=== PATIENT | female | born 1985 | race Caucasian/White ===

== ENCOUNTER 2019-06-06 12:20 | Emergency (ER) | payer OTHER, SELFPAY ==
--- NOTE | 2019-06-06 12:26 | ED.URI ---
HPI - URI/Sore Throat General Chief Complaint: Upper Respiratory Infection Stated Complaint: congestion/cough/SOB Time Seen by Provider: 06/06/19 12:26 Source: patient and RN notes reviewed Mode of arrival: ambulatory Limitations: no limitations History of Present Illness HPI Narrative: A 34 y/o female, who is a smoker and nondrinker, presents to the with multiple, worsening, URI symptoms for the past 5 days. She reports that she has been having a green productive cough, sinus congestion, rhinorrhea, wheezes, and SOB. She notes that she used her mothers nebulizer which helped to alleviated her symptoms. The pt is also here with her daughter who has also been sick, and now Flu B positive . She denies any sore throat, ear ache, fevers, and any other medical complaints at this time. MD elicited complaint: other (Multiple) Onset (ago): day(s) (5) Consistency: progressively worsening Description of mucous: green Relieving factors: vaporizer Context: sick contacts Associated symptoms: rhinorrhea, nasal congestion, cough (green productive), shortness of breath and other (wheezes) Treatments prior to arrival: other (Nebulizer) Related Data Home Medications Medication Instructions Recorded Confirmed escitalopram oxalate 20 mg PO DAILY 05/22/19 06/06/19 lisinopril 20 mg PO DAILY 05/22/19 06/06/19 albuterol sulfate [ProAir HFA] 1 inh INHALATION QID PRN 06/06/19 06/06/19 cetirizine 10 mg PO DAILY 06/06/19 06/06/19 fluticasone propionate 1 spray INTRANASAL Q12H PRN 06/06/19 06/06/19 Allergies Allergy/AdvReac Type Severity Reaction Status Date / Time No Known Allergies Allergy Verified 06/06/19 12:39 Review of Systems Review of Systems: Narrative: General/Constitutional: No weight loss,fever Eyes: N0: Redness,discharge Ears/Nose/Throat: No: Epistaxis,ear discharge, sore throat, ear ache. Reports nasal congestion and rhinorrhea. Respiratory: Denies: Hemoptysis. Reports a green productive cough, wheezes, and SOB. Gastrointestinal: No Vomiting, Bleeding-rectal Skin: No Lumps, eruption Neurologic: No Focal Weakness,Sz Hematologic: Denies: Petechiae/Purpura Psychiatric: No: Suicida ideationl All Other Systems: Reviewed and Negative [facility] Past Medical History Medical History Anxiety Depression HTN (hypertension) Hx of migraines Sleep apnea Surgical History Surgical History (Updated 06/06/19 @ 12:42 by Henry Hernandez) History of bilateral hip arthroplasty History of tonsillectomy Family History Family History Other Diabetes mellitus Family history of malignant neoplasm Hypertension Social History Social History Smoking packs per day: 0.5 Smoking cigarettes per day: 10.0 Smoking status: Current every day smoker Alcohol intake: current Exam Narrative: Exam Narrative: General Appearance: Well appearing, Well nourished EYE: PERRLA, Conjunctiva clear Ears: Auditory canal normal, TM normal Nose: Rhinorrhea, Mucousal erythema Mouth/Throat: MM moist, Uvula midline, Pharyngeal erythema Neck: Supple, No adenopathy Respiratory: No respiratory distress, Breath sounds equal, distant , scattered wheezing. Cardiovascular: RRR, No JVD Musculoskeletal: Non tender, Normal strength, decreased ROM. Skin: Warm, Dry Neurological: A&O x3, CN II-XII intact Psychiatric: Normal mood, Normal affect Course Vital Signs Vital signs: Vital Signs Temperature 97.9 F 06/06/19 12:33 Pulse Rate 93 06/06/19 12:33 Respiratory Rate 06/06/19 12:33 Blood Pressure 154/117 H 06/06/19 12:33 Pulse Oximetry 96 06/06/19 12:33 Temperature 97.9 F 06/06/19 12:33 Pulse Rate 93 06/06/19 12:33 Respiratory Rate 06/06/19 12:33 Blood Pressure 154/117 H 06/06/19 12:33 Pulse Oximetry 96 06/06/19 12:33 MDM - URI/Sore Throat Lab Data Labs: Influenza
[2019-06-06 12:33] VITALS: BP 154/117; PULSE 93; RESP 20; TEMP 36.6; O2SAT 96
== END 2019-06-06 13:26 | disposition home or self-care (01) ==
PROVIDERS: Emergency Provider Emergency Medicine
DX: J98.01 Acute bronchospasm (principal); R05 Cough; R09.81 Nasal congestion; I10 Essential (primary) hypertension; F32.9 Major depressive disorder, single episode, unspecified; F41.9 Anxiety disorder, unspecified; G47.30 Sleep apnea, unspecified
CPT/HCPCS: 87804; 99213; G0463

== ENCOUNTER 2019-07-26 06:39 | Outpatient (CLI) | payer OTHER, SELFPAY ==
--- NOTE | ~2019-07-26 | MR_ITS ---
EXAMINATION: MR ankle LT wo con DATE: 07/26/2019 07:51 INDICATION: Left ankle sprain. TECHNIQUE: Magnetic resonance imaging (MRI) of the left ankle was performed without intravenous contr ast. Sequences included sagittal PD-weighted FS FSE, sagittal PD-weighted FSE, coronal PD-weighted FS FSE, coronal PD-weighted FSE, axial PD-weighted FS FSE, and axial PD-weighted FSE. COMPARISON: Left ankle radiographs 05/22/2019 FINDINGS: Medial ankle ligaments: There are changes of sprain of superficial component of the deltoid ligament characterized by thicken ing and increased signal intensity. The deep component of the deltoid ligament is normal. Lateral ankle ligaments: There are changes of sprain of anterior talofibular ligament and calcaneofibular ligament characteriz ed by increased signal intensity. Posterior talofibular ligament is normal. There are changes of spra in of anterior tibiofibular ligament characterized by thickening and increased signal intensity. Post erior tibiofibular ligament is normal. Tendons: The medial and anterior ankle tendons are normal. The peroneal tendons and Achilles tendon are normal . Plantar fascia: Normal. There is an enthesophyte at the calcaneal attachment. Bones/other: There is mild talonavicular joint osteoarthritis. The talar dome is normal. There is severe fatty atr ophy of abductor digiti minimi muscle belly. Fluid: There is a small effusion of talonavicular joint. IMPRESSION: 1. Mild medial and lateral ankle sprains. Reviewed, dictated and finalized at location A.
== END 2019-07-26 06:40 | disposition home or self-care (01) ==
PROVIDERS: PCP Nurse Practitioner Family; Visit Provider Podiatrist Foot & Ankle Surgery
DX: S93.492A Sprain of other ligament of left ankle, initial encounter (principal)
CPT/HCPCS: 73721

== ENCOUNTER 2020-04-22 14:42 | Emergency (ER) | payer OTHER, SELFPAY ==
[2020-04-22 14:47] VITALS: BP 147/81; PULSE 98; RESP 20; TEMP 36.6; O2SAT 97
--- NOTE | 2020-04-22 15:18 | ED.DENTAL ---
HPI - Dental/Oral General Chief complaint: Dental/Oral Stated complaint: pos thrush Source: patient and RN notes reviewed Limitations: no limitations History of Present Illness HPI Narrative: The obese patient, who is a ex-smoker/current vaper and edentulous, presents with tongue discoloration. Patient states she has about 1/2-month history of dry mouth and yellow discoloration to her tongue. She was provided some nystatin, with no relief. No other jaundice, fever, swelling , eruption . Patient advised to discontinue vaping, and consider reducing Lexapro. Related Data Home Medications Medication Instructions Recorded Confirmed escitalopram oxalate 20 mg PO DAILY 05/22/19 06/06/19 lisinopril 20 mg PO DAILY 05/22/19 06/06/19 cetirizine 10 mg PO DAILY 06/06/19 06/06/19 budesonide-formoterol [Symbicort] puff INHALATION BID 04/22/20 Allergies Allergy/AdvReac Type Severity Reaction Status Date / Time No Known Allergies Allergy Verified 06/06/19 12:39 Review of Systems Review of Systems: Narrative: General/Constitutional: No weight loss,fever Eyes: N0: Redness,discharge Ears/Nose/Throat: No: Epistaxis,ear discharge Respiratory: Denies: Hemoptysis Gastrointestinal: No Vomiting, Bleeding-rectal Skin: No Lumps, eruption Neurologic: No Focal Weakness,Sz Hematologic: Denies: Petechiae/Purpura Psychiatric: No: Suicida ideationl All Other Systems: Reviewed and Negative [facility] Past Medical History Medical History (Updated 04/23/20 @ 00:00 by Zina Zaldivar) Anxiety Depression HTN (hypertension) Hx of migraines Sleep apnea Surgical History Surgical History (Updated 06/06/19 @ 12:42 by Henry Hernandez) History of bilateral hip arthroplasty History of tonsillectomy Family History Family History Other Diabetes mellitus Family history of malignant neoplasm Hypertension Social History Social History Smoking packs per day: 0.5 Smoking cigarettes per day: 10.0 Smoking status: Current every day smoker Alcohol intake: current Gender identity (if verbalized by the patient): Female Comments At time of signature, agree with nursing past medical, surgical, social and family history. There is no relevant family history pertinent to the presenting complaint Exam Narrative: Exam Narrative: General Appearance: Well nourished Obese EYE: PERRLA, EOMI, Conjunctiva clear without jaundice Ears: External ear normal, Auditory canal normal Nose: Normal nose Mouth/Throat: Edentulous, tongue yellow laterally border Neck: Supple, No adenopathy Respiratory: Airway patent, No respiratory distress, Clear to auscultation Musculoskeletal: Normal strength Skin: Warm, Dry, Normal color Neurological: A&O x3, Normal affect Course Vital Signs Vital signs: Vital Signs Temperature 97.8 F 04/22/20 14:47 Pulse Rate 98 04/22/20 14:47 Respiratory Rate 04/22/20 14:47 Blood Pressure 147/81 H 04/22/20 14:47 Pulse Oximetry 97 04/22/20 14:47 Temperature 97.8 F 04/22/20 14:47 Pulse Rate 98 04/22/20 14:47 Respiratory Rate 04/22/20 14:47 Blood Pressure 147/81 H 04/22/20 14:47 Pulse Oximetry 97 04/22/20 14:47 Discharge Plan Discharge Clinical Impression: Tongue disorder, Dry mouth, unspecified Patient Disposition: Home, Self-Care Condition: Stable Instructions: Dry Mouth (ED) Additional Instructions: Try OTC supplements like vitamin D and B complex Decrease smoking/vaping; decrease Lexapro by half Prescriptions: New fluconazole 150 mg tablet 150 mg PO WEEKLY Qty: 2 RF: 0 No Action cetirizine 10 mg Tablet 10 mg PO DAILY RF: 0 albuterol sulfate [Ventolin HFA] 90 mcg/actuation HFA aerosol inhaler 2 puff INHALATION QID PRN (Reason: shortness of breath or wheezing) Qty: 8.5 RF: 1 budesonide-formoterol [Symbicort] 160-4.5 mcg/actuation HFA aer
== END 2020-04-22 15:25 | disposition home or self-care (01) ==
PROVIDERS: Emergency Provider Emergency Medicine; PCP Nurse Practitioner Family
DX: K14.9 Disease of tongue, unspecified (principal); R68.2 Dry mouth, unspecified; F17.200 Nicotine dependence, unspecified, uncomplicated; F41.9 Anxiety disorder, unspecified; F32.9 Major depressive disorder, single episode, unspecified; I10 Essential (primary) hypertension; G47.30 Sleep apnea, unspecified
CPT/HCPCS: 99213; G0463

== ENCOUNTER 2020-08-27 15:48 | Outpatient (CLI) | payer OTHER, SELFPAY ==
--- NOTE | 2020-08-27 | ECG_ITS ---
Measurements Intervals [employer] Rate: 78 P: 42 LA: 174 QRS: 60 QRSD: 97 T: 17 QT: 379 QTc: 433 Interpretive Statements SINUS RHYTHM DELAYED PRECORDIAL R/S TRANSITION BASELINE ARTIFACT- I, II, III BORDERLINE ECG Electronically Signed On 08-27-2020 16:29:06 CDT by Marcial Guzman D.O.
--- NOTE | ~2020-08-27 | XR_ITS ---
EXAMINATION: XR chest 2V EXAM DATE: 08/27/2020 16:31 INDICATION: History of hypertension. Preoperative. TECHNIQUE: Frontal and lateral projections of the chest obtained and reviewed. There is no prior leon dy for comparison. FINDINGS: The lungs are clear. There are no pleural effusions. The cardiomediastinal silhouette is within normal limits. There is no pneumothorax suspected. The bones and soft tissues are unremarkab le. IMPRESSION: Unremarkable chest x-ray exam. Reviewed, dictated and finalized at location B.
[2020-08-27 16:44] LABS: Basophils Percent Auto 0.4 % (0.2-1.2); Eosinophils Absolute Auto 0.2 K/mm3 (0-0.3); Eosinophils Percent Auto 4.1 % (0-4.4); Hematocrit 34.5 % (37.0-47.0); Hemoglobin 11.9 g/dL (12.0-15.0); Immature Granulocyte Absolute 0.03 K/mm3 (0.00-0.031); Immature Granulocyte Percent A 0.6 % (0-0.5); Lymphocytes Absolute Auto 1.53 K/mm3 (0.9-3.2); Lymphocytes Percent Auto 28.2 % (18.3-44.2); Mean Corpuscular HGB Conc 34.5 g/dl (32-36); Mean Corpuscular Hemoglobin 29.8 pg (26-34); Mean Corpuscular Volume 86.5 fl (80-100); Mean Platelet Volume 9.3 fl (7.4-10.4); Monocytes Absolute Auto 0.5 K/mm3 (0.1-0.6); Monocytes Percent Auto 9.9 % (2.6-8.5); Neutrophils Absolute Auto 3.1 K/mm3 (1.3-6.7); Neutrophils Percent Auto 56.8 % (45.5-73.1); Platelet Count Result 223 k/mm3 (150-375); Red Blood Count 3.99 M/mm3 (4.2-5.4); Red Cell Distribution Width 13.7 % (11.5-14.5); White Blood Count 5.4 K/mm3 (4.5-10.0)
[2020-08-27 16:54] LABS: Alanine Aminotransferase 24 U/L (4-35); Albumin Level 3.9 g/dL (3.5-5.1); Alkaline Phosphatase 68 U/L (38-126); Anion Gap 4 mmol/L (8-16); Aspartate Amino Transferase 31 U/L (14-36); Bilirubin,Total 0.2 mg/dL (0.2-1.3); Blood Urea Nitrogen 16 mg/dL (7-17); Carbon Dioxide 32 mmol/L (22-30); Chloride 102 mmol/L (98-107); Estimated Glomerular Filt Rate > 60; Glucose 107 mg/dL (65-105); Potassium 3.7 mmol/L (3.4-5.0); Sodium 138 mmol/L (137-145)
== END 2020-08-27 15:49 | disposition home or self-care (01) ==
LOC: ANHLAB 15:50
PROVIDERS: PCP Nurse Practitioner Family; Visit Provider Nurse Practitioner Family
DX: Z01.818 Encounter for other preprocedural examination (principal)
CPT/HCPCS: 36415; 71046; 80053; 85025; 93005

== ENCOUNTER 2021-02-22 14:35 | Emergency (ER) | payer OTHER, SELFPAY ==
[2021-02-22 14:51] VITALS: BP 146/93; PULSE 88; RESP 18; TEMP 36.4; O2SAT 99
--- NOTE | 2021-02-22 15:14 | ED.BACK ---
HPI - Back Pain/Injury General Chief Complaint: Back Pain/Injury Stated Complaint: Back pain Time Seen by Provider: 02/22/21 15:14 Source: patient, RN notes reviewed and old records reviewed Mode of arrival: ambulatory Limitations: no limitations History of Present Illness HPI Narrative: 36-year-old female presents to the [facility] with complaints of back pain to the lower right side. No numbness or tingling in extremities. States it sometimes a shooting pain down the right leg. 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 No loss or retention of bowel or bladder. No saddle anesthesia. Walks with a normal gait. Pain is worse with changing of positions from standing to sitting and sitting to standing. Related Data Home Medications Medication Instructions Recorded Confirmed escitalopram oxalate 20 mg PO DAILY 05/22/19 02/22/21 lisinopril 20 mg PO DAILY 05/22/19 02/22/21 cetirizine 10 mg PO DAILY 06/06/19 02/22/21 budesonide-formoterol [Symbicort] 2 puff INHALATION BID 04/22/20 02/22/21 Allergies Allergy/AdvReac Type Severity Reaction Status Date / Time No Known Allergies Allergy Verified 02/22/21 15:17 Review of Systems Review of Systems: All systems reviewed & are unremarkable except as noted in HPI and below Constitutional: Constitutional: Reports no additional constitutional complaints Eyes: Eyes: Reports no additional eye complaints ENT: Reports system reviewed and no additional complaints, except as documented Cardiovascular: Cardiovascular: Reports no additional cardiovascular complaints Respiratory: Respiratory: Reports no additional respiratory complaints Gastrointestinal: Gastrointestinal: Reports no additional gastrointestinal complaints, Denies abdominal pain, Denies nausea and Denies vomiting Genitourinary: Genitourinary: Reports no additional female genitourinary complaints and Denies urinary incontinence Musculoskeletal: Musculoskeletal: Reports as per HPI and Reports back pain (Right lower) Integumentary/Breasts: Skin/Breast: Reports system reviewed and no additional complaints, except as docu Neurologic: Reports system reviewed and no additional complaints, except as documented Psychiatric: Psychiatric: Reports no additional psychiatric complaints Allergic/Immunologic: Allergic/Immunologic: Reports no additional allergic/immunologic complaints PMFSH Past Medical History Medical History (Updated 02/22/21 @ 15:22 by Shannon Garnica) Anxiety Depression HTN (hypertension) Hx of migraines Sleep apnea Surgical History Surgical History History of bilateral hip arthroplasty History of tonsillectomy Family History Family History Other Diabetes mellitus Family history of malignant neoplasm Hypertension Social History Social History Smoking packs per day: 0.5 Smoking cigarettes per day: 10.0 Smoking status: Current every day smoker Alcohol intake: current Gender identity (if verbalized by the patient): Female Comments At the time of my signature, I reviewed and agree with the nursing past medical, surgical, social, and family history. There is no relevant family history pertinent to the patient complaint. Exam Const: General: healthy appearing, no acute distress and alert Nutritional Appearance: well nourished and obese morbidly obese Orientation/consciousness: patient oriented x3 Limitations: no limitations HENMT: Head: normal to inspection Eyes: Conjunctivae: conjunctivae normal Pupils: Equal, round and reactive pupils present Neck: Neck: normal visual inspection, no lymphadenopathy and no meningeal signs Chest: Chest palpation & inspection: normal inspection of the chest Resp: Effort & Inspection: normal respiratory effort and no use of accessory muscles Auscultation: clear to
== END 2021-02-22 15:30 | disposition home or self-care (01) ==
PROVIDERS: Emergency Provider Nurse Practitioner; PCP Nurse Practitioner Family
DX: S39.012A Strain of muscle, fascia and tendon of lower back, initial encounter (principal); X50.9XXA Other and unspecified overexertion or strenuous movements or postures, initial encounter; I10 Essential (primary) hypertension; G47.30 Sleep apnea, unspecified; F41.9 Anxiety disorder, unspecified; F32.9 Major depressive disorder, single episode, unspecified
CPT/HCPCS: 99213; G0463

== ENCOUNTER 2023-05-30 11:29 | Emergency (ER) | payer OTHER, SELFPAY ==
[2023-05-30 11:49] VITALS: BP 141/81; PULSE 75; RESP 18; TEMP 36.2; O2SAT 96
--- NOTE | 2023-05-30 12:31 | ED.GENADULT ---
HPI - General Adult General Chief complaint: Urogenital-Female Stated complaint: uti symptoms Time Seen by Provider: 05/30/23 12:31 Source: patient Mode of arrival: ambulatory Limitations: no limitations History of Present Illness HPI narrative: 38-year-old female patient presents to [facility] with complaints of pain with urination that started this morning. Denies any blood to the urine that she is aware of. Denies any low back pain, fevers, body aches, chills. Denies any nausea, vomiting or diarrhea. Patient states he ate she has had some lower abdominal pain. Patient states she is sexually active but does not have any concerns for STD because she is in a monogamous relationship. Patient denies any stating that her tubes have been tied. Related Data Home Medications Medication Instructions Recorded Confirmed escitalopram oxalate 20 mg tablet 20 mg PO DAILY 05/22/19 05/30/23 lisinopril 20 mg tablet 20 mg PO DAILY 05/22/19 05/30/23 cetirizine 10 mg tablet 10 mg PO DAILY 06/06/19 05/30/23 budesonide-formoterol HFA 160 2 puff inhalation BID 04/22/20 05/30/23 mcg-4.5 mcg/actuation aerosol inhaler (Symbicort) albuterol sulfate 2.5 mg/3 mL mg 05/30/23 (0.083 %) solution for nebulization ibuprofen 800 mg tablet mg 05/30/23 Allergies Allergy/AdvReac Type Severity Reaction Status Date / Time No Known Allergies Allergy Verified 05/30/23 11:54 Review of Systems Review of Systems: CONSTITUTIONAL: Denies fever, chills, or sweats. EYES: Denies visual changes, redness, or discharge. ENT: Denies rhinorrhea, congestion, sore throat, or otalgia. CARDIOVASCULAR: Denies chest pain, palpitations, or edema. RESPIRATORY: Denies cough or dyspnea. GASTROINTESTINAL: Denies abdominal pain, nausea, vomiting, or diarrhea. GENITOURINARY: Positive dysuria , denies gross hematuria. SKIN: Denies rash or itching. MUSCULOSKELETAL: Denies back pain, joint pain, or myalgia. NEUROLOGIC: Denies headache, numbness, or weakness. PSYCHIATRIC: Denies anxiety or depression. [facility] Past Medical History Medical History (Updated 05/30/23 @ 12:36 by HEATHER Davis) Anxiety Depression HTN (hypertension) Hx of migraines Sleep apnea Surgical History Surgical History History of bilateral hip arthroplasty History of tonsillectomy Family History Family History Other Diabetes mellitus Family history of malignant neoplasm Hypertension Social History Social History Smoking packs per day: 0.5 Smoking cigarettes per day: 10.0 Smoking status: Current every day smoker Alcohol intake: current Gender identity (if verbalized by the patient): Female Comments At the time of my signature I agree with nursing past medical history, surgical, social, and family history. There is no relevant family history pertinent to the presenting complaint. Exam Narrative: GENERAL: Well-appearing, well-nourished, and in no acute distress. HEAD: Normocephalic, atraumatic. EYES: PERRLA and EOMI. ENT: Nares clear, no rhinorrhea or epistaxis. Mucous membranes moist. NECK: Supple. No lymphadenopathy CHEST: Clear to auscultation. No respiratory distress. HEART: Regular rate and rhythm. No murmur heard. Normal peripheral pulses. ABDOMEN: Soft, nontender, nondistended, normal active bowel sounds. no CVA tenderness on percussion EXTREMITIES: Normal range of motion. No edema. SKIN: Warm, dry, no rash. NEURO: No focal deficits. Alert and oriented x3. Course Course Level of Care: Express Care Visit Vital Signs Vital signs: Vital Signs Temperature 36.2 C L 05/30/23 11:49 Pulse Rate 75 05/30/23 11:49 Respiratory Rate 18 05/30/23 11:49 Blood Pressure 141/81 H 05/30/23 11:49 Pulse Oximetry 96 05/30/23 11:49 Oxygen Delivery Room Air
== END 2023-05-30 12:45 | disposition home or self-care (01) ==
PROVIDERS: Emergency Provider Nurse Practitioner Family; PCP Nurse Practitioner Family
DX: N30.00 Acute cystitis without hematuria (principal); B96.20 Unspecified Escherichia coli [E. coli] as the cause of diseases classified elsewhere; F17.210 Nicotine dependence, cigarettes, uncomplicated; I10 Essential (primary) hypertension; F41.9 Anxiety disorder, unspecified; F32.A Depression, unspecified
CPT/HCPCS: 81003; 87077; 87086; 87186; 99213; G0463

== ENCOUNTER 2024-04-15 03:35 | Emergency (ER) | payer OTHER, SELFPAY ==
[2024-04-15 03:43] VITALS: BP 159/79; PULSE 80; RESP 20; TEMP 36.6; O2SAT 97
--- NOTE | 2024-04-15 03:55 | ED_ITS ---
HPI - General Adult General Chief complaint: Back Pain/Injury Stated complaint: Back Pain Time Seen by Provider: 04/15/24 03:47 History of Present Illness HPI narrative: This is a 39-year-old female with a history of morbid obesity, chronic lower back pain, muscle spasms, sciatica and anxiety presenting for back pain. Says she has been having pain for the last 2 weeks. She has seen her chiropractor multiple times for this. She had an adjustment yesterday but then is having worse pain today. She has been able to ambulate although it is painful. she took Motrin/lidocaine patch with no relief. She took a Percocet from a friend which she said helped. She has not had any difficulty urinating or bowel incontinence. No weakness to the legs. No trauma, cancer history of hyper drug abuse. No fevers. Patient's pain was so bad tonight but it made her very anxious since he started test have tingling in her hands and feet. Related Data Home Medications ?Medication ?Instructions ?Recorded ?Confirmed ?Last Taken ?Type escitalopram oxalate 20 mg tablet 20 mg PO DAILY 05/22/19 07/13/23 Unknown History lisinopril 20 mg tablet 20 mg PO DAILY 05/22/19 07/13/23 Unknown History budesonide-formoterol HFA 160 2 puff inhalation BID 04/22/20 07/13/23 Unknown History mcg-4.5 mcg/actuation aerosol inhaler (Symbicort) buspirone 5 mg tablet 5 mg PO BID 07/13/23 07/13/23 Unknown History Allergies Allergy/AdvReac Type Severity Reaction Status Date / Time No Known Allergies Allergy Verified 04/15/24 03:47 [facility] Past Medical History Medical History Allergies Urine incontinence Sciatica Asthma Obese Sleep apnea Hx of migraines HTN (hypertension) Anxiety Depression Surgical History Surgical History H/O tubal ligation History of tonsillectomy History of bilateral hip arthroplasty Family History Family History Father Diabetes mellitus Hypertension Cerebrovascular accident Mother Asthma Diabetes mellitus Hypertension Depression Heart disease Other Family history of malignant neoplasm Social History Social History Smoking packs per day: 0.5 Smoking cigarettes per day: 10.0 Smoking status: Former smoker Alcohol intake: current Substance use: never Do You Feel Safe in your Home?: Yes Lack of Transportation: No Lack of Food: Never True Current Housing: I Have Housing Concerned About Future Housing: No Difficulty Paying Gas/Electric Bills: No Difficulty Paying for Meds: No Currently Unemployed: No Education: High School Diploma/GED Difficulty w/ Childcare or Family Care: No Gender identity (if verbalized by the patient): Female Exam Narrative: APPEARANCE: No apparent distress. Head: atraumatic. EYES: EOMI, NOSE: Atraumatic NECK/BACK: No midline spinal tendeness, Tenderness over the right paralumbar muscles. RESPIRATORY: No increased rate of breathing clear auscultation CARDIOVASCULAR: RRR, Nonpitting edema lower extremities ABDOMINAL: Non-distended MUSCULOSKELETAl: No obvious deformities NEURO: Alert. focal exam lower extremities reveals intact flexion-extension the ankle, sensation intact, pulses are strong SKIN:: Warm, dry. Normal color PSYCHIATRIC: Normal affect Course Vital Signs Vital signs: Vital Signs Temperature 97.8 F 04/15/24 03:43 Pulse Rate 80 04/15/24 03:43 Respiratory Rate 20 04/15/24 03:43 Blood Pressure 159/79 H 04/15/24 03:43 Pulse Oximetry 97 04/15/24 03:43 Oxygen Delivery Room Air 04/15/24 03:43 Temperature 97.8 F 04/15/24 03:43 Pulse Rate 80 04/15/24 03:43 Respiratory Rate 20 04/15/24 03:43 Blood Pressure 159/79 H 04/15/24 03:43 Pulse Oximetry 97 04/15/24 03:43 Oxygen Delivery Room Air 04/15/24 03:43 Medical Decision Making MDM Narrative Medical decision making narrative: -Course: 39-year-old female Presenting with acute on chronic back pain. No neurologic deficits. No red flags on history or physical. Patient treated with Valium, Toradol and Tylenol. Patient's pain improved she was getting able to get up ambulate to the restroom and back to her room. Patient will be discharged on course of Motrin Tylenol Robaxin. Encouraged follow-up with primary care physician, continuing to lose weight and possibly physical therapy if her PCP decided so. -DDX includes but is not limited to: Muscle spasms, lumbago, sciatica -Co-morbidities complicating care: morbid obesity, chronic back pain -Shared decision making / Disposition:discharged. -RX: motrin/tylenol/robaxin. Vital Signs Vital Signs: Vital Signs Temperature 97.8 F 04/15/24 03:43 Pulse Rate 80 04/15/24 03:43 Respiratory Rate 20 04/15/24 03:43 Blood Pressure 159/79 H 04/15/24 03:43 Pulse Oximetry 97 04/15/24 03:43 Oxygen Delivery Room Air 04/15/24 03:43 Temperature 97.8 F 04/15/24 03:43 Pulse Rate 80 04/15/24 03:43 Respiratory Rate 20 04/15/24 03:43 Blood Pressure 159/79 H 04/15/24 03:43 Pulse Oximetry 97 04/15/24 03:43 Oxygen Delivery Room Air 04/15/24 03:43 Discharge Plan Discharge Clinical Impression: Back pain Patient Disposition: Home, Self-Care Condition: Stable Instructions: Antibiotic Form, Back Pain (ED) Additional Instructions: Please take Motrin Tylenol and Robaxin for back pain. Please follow-up with your primary care physician. Return to ED if you develops severe pain, weakness in her legs inability to urinate or bowel incontinence Patient Language: Yakut Prescriptions: New acetaminophen 500 mg tablet 1,000 mg PO TID PRN (Reason: catherine) 7 Days Qty: 42 0RF ibuprofen 800 mg tablet 800 mg PO TID PRN (Reason: pain) 7 Days Qty: 21 0RF methocarbamol 750 mg tablet 1,500 mg PO TID Qty: 35 0RF lidocaine 5 % adhesive patch,medicated 1 patch topical DAILY Qty: 15 0RF Rx Instructions: leave on most painful area for up to 12 hrs No Action budesonide-formoterol [Symbicort] 160-4.5 mcg/actuation HFA aerosol inhaler 2 puff INHALATION BID buspirone 5 mg tablet 5 mg PO BID methylprednisolone [Medrol (Jac)] 4 mg tablets,dose pack See Rx Instructions PO PER PKG DIR Qty: 21 0RF Rx Instructions: PO PER PKG DIR for 6 days lisinopril 20 mg tablet 20 mg PO DAILY escitalopram oxalate 20 mg tablet 20 mg PO DAILY ibuprofen 800 mg tablet 800 mg PO BID PRN (Reason: pain) Qty: 60 2RF cetirizine 10 mg tablet 10 mg PO DAILY Qty: 90 1RF tizanidine 6 mg capsule 6 mg PO BID Qty: 30 1RF Airsupra 90-80 mcg/actuation HFA aerosol inhaler 2 inh inhalation ONCE Qty: 32.1 0RF Rx Instructions: as a single dose; may repeat up to 6 doses per day (12 inhalations) albuterol sulfate 2.5 mg /3 mL (0.083 %) solution for nebulization 2.5 mg inhalation Q6H PRN (Reason: bronchospasm) Qty: 90 1RF Follow-up/Referrals: Cheyenne Smith APRN [Primary Care Provider] - 1 Week (backpain )
[2024-04-15] MEDS: ACETAMINOPHEN 500 MG TABLET 1000 MG PO (04:09)
[2024-04-15] MEDS: KETOROLAC 30 MG/ML VIAL (*BKC) IM (04:09)
[2024-04-15] MEDS: diazePAM INJ (*CRX) 10 MG/2 ML SYRINGE 5 MG IM (04:09)
[2024-04-15 04:48] VITALS: BP 139/84; PULSE 65; RESP 18; O2SAT 96
--- NOTE | 2024-04-15 04:59 | PC.NURSE ---
Pt states her pain is a little better, I'm uncomfortable that's the issue , this RN asked if there is a position she may be more comfortable in that she could be moved into with assistance and pt responded I don't know maybe , but did not wish to move at this time
[2024-04-15 06:27] VITALS: BP 137/84; PULSE 85; RESP 18; O2SAT 98
--- OUTSIDE RECORDS SUMMARY | 2024-04-22 02:45 | XMS_ITS | Continuity of Care Document ---
Author Organization [facility] Address [address] [place] [address] [place] [address] Phone Care Team Providers Care Independent Jeweler Name Role Phone Baltazar Garza MD Unavailable Unavailable Allergies, Adverse Reactions, Alerts Substance Reaction Status Criticality No Known Allergies Active No Inform ation Medications Medication Instructions Dosage Effective Dates (start - stop) Status Comments losartan 100 mg tablet take 1 tablet (100MG) by oral route every day 100 MG - Active amoxicillin 875 mg tablet take 1 tablet (875MG) by oral route every 12 hours 875 MG - Active Vicodin 5 mg-500 mg tablet take 1 tablet by oral route every 4 - 6 hours as needed for pain - Active avoid driving or operate machines Adderall 20 mg tablet take 1 tablet (20MG) by oral route every day before breakfast 20 MG - Active Procedures Procedure Date OFFICE/OUTPATIENT VISIT, EST OFFICE/OUTPATIENT VISIT, EST OFFICE/OUTPATIENT VISIT, EST OFFICE/OUTPATIENT VISIT, EST PREV VISIT, NEW, AGE 18-39 Advance Directives Directive Yes / No Effective Date File Name No Information Encounters Encounter Description Practice Location Reason(s) For Visit Diagnoses Date Provider Providers Copied on Encounter OFFICE/OUTPA TIENT VISIT, EST [facility], [address] [place], [address], [place] tel:[phone] [facility] hip pain (chief complaint) toothache (chief complaint) HTN (chief complaint) Pain in joint, site unspecifiedAttentio n deficit disorder of childhood without mention of hyperactivityDietar y surveillance and counselingHypertens ion, UnspecifiedAtypical face pain Sep-2 0 3 Greg Ledesma. [address], [place], [address]. [phone] Referring Provider: Baltazar Garza, [address], [place], [address]. tel:[phone] OFFICE/OUTPA TIENT VISIT, [facility], [place], [facility], [address], [place], [place], [facility], tel:[phone] [facility] Hip pain (chief complaint) ADD (chief complaint) HTN (chief complaint) Dietary surveillance and counselingPain in joint, site unspecifiedHyperten guadalupe, UnspecifiedAttentio n deficit disorder of childhood without mention of hyperactivity 3 Greg Ledesma. [address], [place], [place], [facility]. tel:[phone] Referring Provider: Baltazar Garza, [address], [place], [place], [facility]. tel:[phone] OFFICE/OUTPA TIENT VISIT, [facility], [place], [facility], [address], [place], [address], [place] tel:[phone] [facility] hip pain (chief complaint) ADD (chief complaint) HTN (chief complaint) Dietary surveillance and counselingDietary surveillance and counselingPain in joint, site unspecifiedAttentio n deficit disorder of childhood without mention of hyperactivityHypert ension, Unspecified 3 Greg Ledesma. [address], [address], [place], [address]. tel:[phone] Referring Provider: Baltazar Garza [address], [place], [address]. tel:[phone] OFFICE/OUTPA TIENT VISIT, [facility], [place], [facility], [address], [place], [address], [place] tel:[phone] [facility] hip pain (chief complaint) ADD (chief complaint) Dietary surveillance and counselingPain in joint, site unspecifiedAttentio n deficit disorder of childhood without mention of hyperactivityHypert ension, Unspecified 3 Greg Ledesma. [address], [place], [address]. tel:[phone] Referring Provider: Baltazar Garza, [address], [place], [address]. tel:[phone] PREV VISIT, NEW, AGE 18-39 [facility], [address], [place], [address], tel:[phone] [facility] Physical (chief complaint) ADD (chief complaint) Dietary surveillance and counselingRoutine Medical ExamRoutine Medical Exam 3 Greg Ledesma. [address], [place], [address]. tel:[phone] Referring Provider: Baltazar Garza, [address] [facility] [address], [place], [address]. tel:[phone] Family History Family Member Type Diagnosis Age At Onset Mother Problem (finding) Hypertension Father Problem (finding) Diabetes mellitus Brother Problem (finding) Alive and well Payers Payer name Insurance type Covered alliance party ID Authoriza tion(s) No Information Social History Type Description Quantity Date Captured Comments Alcohol Use Details No Caffeine Use Details Unknown Tobacco Use Status No Information Smoking Status Current every day smoker 2012 Sex Female Vital Signs Date / Time: Height Weight BMI Pulse Rate Blood Pressure Temperature Respiratory Rate Body Surface Area Head Circumference BMI percentile Pulse Ox Inhaled Ox 5:33 PM 65.00 in 293.75 lbs 48.8 8 kg/m eter (2) 76 /min 135/80 mm[Hg] 98.3 F 18 /min Chief Complaint And Reason For Visit From encounter dated '01/13/2013 15:45'. hip pain (chief complaint) toothache (chief complaint) HTN (chief complaint) Plan Of Treatment Date Type Action Status Goal Tobacco cessation counseling completed Goal Tobacco cessation counseling completed Goal Tobacco cessation counseling completed Goal Tobacco cessation counseling completed Goal Tobacco cessation counseling completed Referral Ordered: HIP XRAY AP/LAT Bilateral ordered History Of Present Illness Encounter Date Complaint History Of Prese nt Illness No Information Instructions Date Instruction Additional Infor mation Decrease caloric intake Related to Dietary surveillance counseling Dietary counseling Related to Di etary surveillance counseling Dietary counseling Related to Di etary surveillance counseling Decrease caloric intake Related to Dietary surveillance counseling Decrease caloric intake Related to Dietary surveillance counseling Dietary counseling Related to Di etary surveillance counseling Decrease caloric intake Related to Dietary surveillance counseling Dietary counseling Related to Di etary surveillance counseling Decrease caloric intake Related to Dietary surveillance counseling Dietary counseling Related to Di etary surveillance counseling Assessments Type Assessment Date No Information Mental Status Date Cognitive Assessment Orientation - [place] ed to time, place, person, situation.
--- OUTSIDE RECORDS SUMMARY | 2024-04-22 02:45 | XMS_ITS | Encounter Summary ---
Author Organization [facility] Address [address] [place] [address] Care Team Providers Care Manual Arts Therapy Teacher Name Role Phone Unavailable Primary Care Provider Unavailabl e Encounter Details Date Type Department Care Team (Late st Contact Info) Description 05/07/2020 Lab Requisition [facility] Mobile Testing [address] [place] [address] [place] [id number] [place] [address] Social History Tobacco Use Types Packs/Day Years Used Date Smoking Tobacco: Never Assessed Comments Unknown Sex and Gender Information Value Date Recorded Sex Assigned at Not on file Legal Sex Female 3:19 PM CDT Gender Identity Not on file Sexual Orientation Not on file documented as of this encounter Plan of Treatment Not on file documented as of this encounter Procedures Procedure Name Priority Date/Time Associated Diagnosis Comments SARS-COV-2 PCR [facility] ONLY Routine 05/07/2020 12:45 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
--- OUTSIDE RECORDS SUMMARY | 2024-04-22 02:45 | XMS_ITS | Data Portability ---
Author Organization [facility], Main Office Address [address] [place] [address] Assessment No assessment recorded. Plan of Treatment Reminders Order Date Submit Date Provider Last Modified By Organization Details Last Modified Time Details Appointments None recorded. Lab lipid panel, serum 2022 023 [facility] (Lab), [address] [place], [address], 3 21:43:17 TSH, serum, reflex free T4 [address] (Lab), [address] [place], [address], 3 08:14:30 CBC w/ diff [address] (Lab), [address] [place], [address], 3 08:18:06 CMP, serum or plasma 2022 023 [facility] (Lab), [address] [place], [address], 3 21:43:28 HbA1c (hemoglobin A1c), blood [address] (Lab), [address] [place], [address], 3 08:14:30 Referral None recorded. Procedures None recorded. Surgeries None recorded. Imaging None recorded. Medication Orders doxycycline hyclate 100 mg capsule 2022 023 [email or web address] [id number], [address], [place], [id number], 21:18:25 buspirone 5 mg tablet 2022 023 MONICA [facility] #[id number], [address], [place], [id number], 16:00:07 Patient TargetsNo targets recorded. Patient Instructions Encounter Date Encounter Id Patient Instructions Last Modified By Organization Details Last Modified Time 10/16/2022 [id number] 2 mo fu weight, asthma htn, labs [email or web address] Not available 10/16/2022 16:04:21 Reason for Referral None Reported. Results Created Date Observation Date Name Description Value Unit Range Abnormal Flag Note LastModifiedBy Organization Detail LastModifiedTime 10/21/1910/20/2022 CBC/C OMPLE TE BLD COUNT W/DIF F white blood cells 6.7 x10'3 /uL 4.2-10 .8 Not Available [facility] (Lab) [address] [place], [address], 10/20/2022 21:00:59 10/21/1910/20/2022 CBC/C OMPLE TE BLD COUNT W/DIF F red blood cells 4.42 x10'6 /uL 3.80-5 .20 Not Available [facility] (Lab) [address] [place], [address], 10/20/2022 21:00:59 10/21/1910/20/2022 CBC/C OMPLE TE BLD COUNT W/DIF F hemoglobin 12.7 g/dL 12.0-1 5.6 Not Available [facility] (Lab) [address] [place], [address], 10/20/2022 21:00:59 10/21/192023 CBC/C OMPLE TE BLD COUNT W/DIF F hematocrit 38.5 % 35.7-4 5.7 Not Available [facility] (Lab) [address] [place], [address], 10/20/2022 21:00:59 10/21/19 23 10/20/2022 CBC/C OMPLE TE BLD COUNT W/DIF F mean red cell volume 87.1 fL 82.0-9 9.0 Not Available [facility] (Lab) [address] [place], [address], 10/20/2022 21:00:59 10/21/19 23 10/20/2022 CBC/C OMPLE TE BLD COUNT W/DIF F mean red cell hemoglobin 28.7 pg 27.0-3 3.0 Not Available [facility] (Lab) [address] [place], [address], 10/20/2022 21:00:59 10/21/19 23 10/20/2022 CBC/C OMPLE TE BLD COUNT W/DIF F mean RBC HGB concentratio n 33.0 g/dL 31.0-3 6.0 Not Available [facility] (Lab) [address] [place], [address], 10/20/2022 21:00:59 10/21/19 23 10/20/2022 CBC/C OMPLE TE BLD COUNT W/DIF F red cell distribution width 14.2 % 11.8-1 5.5 Not Available [facility] (Lab) [address] [place], [address], 10/20/2022 21:00:59 10/21/19 23 10/20/2022 CBC/C OMPLE TE BLD COUNT W/DIF F platelets 202 x10'3 /uL 150-40 0 Not Available [facility] (Lab) [address] [place], [address], 10/20/2022 21:00:59 10/21/19 23 10/20/2022 CBC/C OMPLE TE BLD COUNT W/DIF F mean platelet volume 10.6 fL 9.0-12 .4 Not Available [facility] (Lab) [address] [place], [address], 10/20/2022 21:00:59 10/21/19 23 10/20/2022 CBC/C OMPLE TE BLD COUNT W/DIF F neutrophils 55.8 % 39.0-7 2.0 Not Available [facility] (Lab) [address] [place], [address], 10/20/2022 21:00:59 10/21/19 23 10/20/2022 CBC/C OMPLE TE BLD COUNT W/DIF F lymphocytes 25.0 % 16.0-4 7.0 Not Available [facility] (Lab) [address] [place], [address], 10/20/2022 21:00:59 10/21/19 23 10/20/2022 CBC/C OMPLE TE BLD COUNT W/DIF F monocytes 8.6 % 5.0-12 .0 Not Available [facility] (Lab) [address] [place], [address], 10/20/2022 21:00:59 10/21/19 23 10/20/2022 CBC/C OMPLE TE BLD COUNT W/DIF F eosinophils 9.5 % 1.0-7. 0 high Not Available [facility] (Lab) [address] [place], [address], 10/20/2022 21:00:59 10/21/19 23 10/20/2022 CBC/C OMPLE TE BLD COUNT W/DIF F basophils 0.7 % 0.0-2. 0 Not Available [facility] (Lab) [address] [place], [address], 10/20/2022 21:00:59 10/21/19 23 10/20/2022 CBC/C OMPLE TE BLD COUNT W/DIF F immature granulocytes 0.4 % 0.00-0 .50 Not Available [facility] (Lab) [address] [place], [address], 10/20/2022 21:00:59 10/21/19 23 10/20/2022 CBC/C OMPLE TE BLD COUNT W/DIF F neutrophils, absolute count 3.73 x10'3 /uL 1.5-8. 0 Not Available [facility] (Lab) [address] [place], [address], 10/20/2022 21:00:59 10/21/19 23 10/20/2022 CBC/C OMPLE TE BLD COUNT W/DIF F lymphocytes, absolute count 1.68 x10'3 /uL 1.07-3 .43 Not Available [facility] (Lab) [address] [place], [address], 10/20/2022 21:00:59 10/21/19 23 10/20/2022 CBC/C OMPLE TE BLD COUNT W/DIF F monocytes, absolute count 0.58 x10'3 /uL 0.29-0 .99 Not Available [facility] (Lab) [address] [place], [address], 10/20/2022 21:00:59 10/21/19 23 10/20/2022 CBC/C OMPLE TE BLD COUNT W/DIF F eosinophils, absolute count 0.64 x10'3 /uL 0.02-0 .53 high Not Available [facility] (Lab) [address] [place], [address], 10/20/2022 21:00:59 10/21/19 23 10/20/2022 CBC/C OMPLE TE BLD COUNT W/DIF F basophils, absolute count 0.05 x10'3 /uL 0.01-0 .08 Not Available [facility] (Lab) [address] [place], [address], 10/20/2022 21:00:59 10/21/1910/20/2022 CBC/C OMPLE TE BLD COUNT W/DIF F immature granulocytes ,absolute 0.03 x10'3 /uL 0.00-0 .05 Not Available [facility] (Lab) [address] [place], [address], 10/20/2022 21:00:59 10/21/19 23 10/20/2022 CBC/C OMPLE TE BLD COUNT W/DIF F nucleated red blood cells 0.0 % -0 Not Available [facility] (Lab) [address] [place], [address], 10/20/2022 21:00:59 10/21/19 23 10/20/2022 CBC/C OMPLE TE BLD COUNT W/DIF F NRBC# 0.00 x10'3 /uL Not Available [facility] (Lab) [address] [place], [address], 10/20/2022 21:00:59 10/21/19 23 10/20/2022 LIPID PANEL cholesterol 161 mg/dL 140-19 9 NIH MIA NSUS RECOM MENDA TION FOR VIDAL STERO L: ADULT CHILD LOW RISK: <200 <170 BORDE RLINE : <200- 239 ----- HIGH RISK: >240 >200 Not Available [facility] (Lab) [address] [place], [address], 10/20/2022 21:43:17 10/21/1910/20/2022 LIPID PANEL triglyceride s 149 mg/dL 0-150 NIH MIA NSUS REPOR T RECOM MENDA TION FOR TRIGL YCERI PARAMJIT: ADULT CHILD LOW RISK: <150 ----- BODER LINE: 150-1 99 ----- HIGH RISK: >200 ----- Not Available [facility] (Lab) [address] [place], [address], 10/20/2022 21:43:17 10/21/19 23 10/20/2022 LIPID PANEL HDL cholesterol 37 mg/dL 40- low Not Available [facility] (Lab) [address] [place], [address], 10/20/2022 21:43:17 10/21/19 23 10/20/2022 LIPID PANEL LDL cholesterol, calculated 94 mg/dL 0-130 NIH MIA NSUS REPOR T RECOM MENDA TIONS FOR LDL: ADULT CHILD LOW RISK <130 <110 (OPTI MAL LDL) <100 ----- BORDE RLINE : 130-1 59 ----- HIGH RISK: >160 >130 A TRIGL YCERI DE RESUL T >400 INVAL IDATE S THE CALCU LATIO N FOR LDL FRACT IONAT ION - THE LDL RESUL T WILL NOT BE REPOR LIBAN. Not Available [facility] (Lab) [address] [place], [address], 10/20/2022 21:43:17 10/21/19 23 10/20/2022 COMPR EHENS MICHAEL METAB OLIC PANEL sodium 136 mmol/ L 137-14 5 low Not Available [facility] (Lab) [address] [place], [address], 10/20/2022 21:43:28 10/21/19 23 10/20/2022 COMPR EHENS MICHAEL METAB OLIC PANEL potassium 4.3 mmol/ L 3.5-5. 1 Not Available [facility] (Lab) [address] [place], [address], 10/20/2022 21:43:28 10/21/19 23 10/20/2022 COMPR EHENS MICHAEL METAB OLIC PANEL chloride 101 mmol/ L 98-107 Not Available [facility] (Lab) [address] [place], [address], 10/20/2022 21:43:28 10/21/19 23 10/20/2022 COMPR EHENS MICHAEL METAB OLIC PANEL carbon dioxide 27 mmol/ L 22-30 Not Available [facility] (Lab) [address] [place], [address], 10/20/2022 21:43:28 10/21/19 23 10/20/2022 COMPR EHENS MICHAEL METAB OLIC PANEL anion gap 12.3 mmol/ L 14-22 low Not Available [facility] (Lab) [address] [place], [address], 10/20/2022 21:43:28 10/21/19 23 10/20/2022 COMPR EHENS MICHAEL METAB OLIC PANEL glucose 93 mg/dL 70-99 Not Available [facility] (Lab) [address] [place], [address], 10/20/2022 21:43:28 10/21/19 23 10/20/2022 COMPR EHENS MICHAEL METAB OLIC PANEL BUN 11 mg/dL 8-19 Not Available [facility] (Lab) [address] [place], [address], 10/20/2022 21:43:28 10/21/19 23 10/20/2022 COMPR EHENS MICHAEL METAB OLIC PANEL creatinine 0.58 mg/dL 0.66-1 .25 low Not Available [facility] (Lab) [address] [place], [address], 10/20/2022 21:43:28 10/21/19 23 10/20/2022 COMPR EHENS MICHAEL METAB OLIC PANEL GFR >60 Refer ence Range : [place] ge GFR Healt hy Adult : >60 mL/mi n/1.7 3 m2 Chron ic Kidne y Disea se: 15-60 mL/mi n/1.7 3 m2 Kidne y Failu re: <15/m L/min /1.73 m2 www.n iddk. nih.g ov The MDRD study equat ion has not been valid ated in child marianne <18 years of age; pregn ant women ; the elder ly >85 years of age; or in some racia l or ethni c subgr oups, such as Hispa nics. Outsi de the valid ated danielle eters , estim ated GFR is less accur ate, requi ring clini rina judgm ent on a case- by-ca se basis . Clini rina inter preta tion for other races and ages must be made by the clini alessio. The MDRD study equat ion has not been valid ated for the evalu ation of serum creat inine relat ed to nutri konrad l statu s or medic ation usage . For perso ns <18 years of age, a pedia tric GFR calcu lator is avail able on the [facility] websi te: https :[email or web address] nicole.nora benítez/pr ofess ional s/kdo qi/gf r_cal culat or Not Available [facility] (Lab) [address] [place], [address], 10/20/2022 21:43:28 10/21/19 23 10/20/2022 COMPR EHENS MICHAEL METAB OLIC PANEL alkaline phosphatase 56 U/L 38-126 Not Available [facility] (Lab) [address] [place], [address], 10/20/2022 21:43:28 10/21/19 23 10/20/2022 COMPR EHENS MICHAEL METAB OLIC PANEL alanine aminotransfe rase 36 U/L 0-35 high Not Available [facility] (Lab) [address] [place], [address], 10/20/2022 21:43:28 10/21/19 23 10/20/2022 COMPR EHENS MICHAEL METAB OLIC PANEL aspartate aminotransfe rase 34 U/L 15-37 Not Available [facility] (Lab) [address] [place], [address], 10/20/2022 21:43:28 10/21/19 23 10/20/2022 COMPR EHENS MICHAEL METAB OLIC PANEL bilirubin, total 0.40 mg/dL 0.20-1 .30 Not Available [facility] (Lab) [address] [facility] [place], [address], 10/20/2022 21:43:28 10/21/19 23 10/20/2022 COMPR EHENS MICHAEL METAB OLIC PANEL calcium 8.7 mg/dL 8.4-10 .2 Not Available [facility] (Lab) [address] [place], [address], 10/20/2022 21:43:28 10/21/19 23 10/20/2022 COMPR EHENS MICHAEL METAB OLIC PANEL total protein 7.1 g/dL 6.3-8. 2 Not Available [facility] (Lab) [address] [place], [address], 10/20/2022 21:43:28 10/21/19 23 10/20/2022 COMPR EHENS MICHAEL METAB OLIC PANEL albumin 3.6 g/dL 3.4-5. 0 Not Available [facility] (Lab) [address] [place], [address], 10/20/2022 21:43:28 10/21/19 23 10/20/2022 COMPR EHENS MICHAEL METAB OLIC PANEL globulin 3.5 g/dL 2.6-4. 2 Not Available [facility] (Lab) [address] [place], [address], 10/20/2022 21:43:28 10/21/19 23 10/20/2022 COMPR EHENS MICHAEL METAB OLIC PANEL A/G ratio 1.0 ratio 1.0-2. 0 Not Available [facility] (Lab) [address] [place], [address], 10/20/2022 21:43:28 10/21/19 23 10/20/2022 HEMOG LOBIN A1C HA1C 5.4 % 4.0-6. 0 Diabe clarisa Scree gil Crite tim: <5.7% Consi stent with absen ce of diabe clarisa 5.7-6 .4% Consi stent with incre ased risk for diabe clarisa (pred iabet es) >OR=6 .5% Consi stent with diabe clarisa REFER ENCE: Diabe clarisa Care 2016, 39(Davis ppl.1 ):s13 -s22 Not Available [facility] (Lab) [address] [place], [address], 10/20/2022 22:03:40 10/21/19 23 10/20/2022 TSH W/REF RAUL FT4 TSH with reflex free T4 0.871 uIU/m L 0.465- 4.680 Not Available [facility] (Lab) [address] [place], [address], 10/20/2022 22:10:35 Result Notes None recorded. Problems Name Problem SNOMED Code Status Onset Date Resolution Date Notes Provider Name and Address Organization Details Recorded Time Tobacco user 146238040 Active 2017 Not Available [facility] 3 01:25:17 Constipation 47419337 Active 2020 Not Available [facility] 3 01:25:17 Insomnia 213146101 Active 2018 Not Available [facility] 3 01:25:17 Anxiety disorder 945328728 Active 2019 Not Available [facility] 3 01:25:17 Mixed anxiety and depressive disorder 611372835 Active 2017 Not Available [facility] 3 01:25:17 Morbid obesity 912281371 Active 2021 Not Available [facility] 3 01:25:17 Ankle pain 416895051 Active 2019 Not Available [facility] 3 01:25:17 Bronchitis 49038786 Active 2019 Not Available [facility] 3 01:25:17 Tachycardia 2046630 Active 2017 Not Available [facility] 3 01:25:17 Depressive disorder 99317236 Active 2019 Not Available [facility] 3 01:25:18 Sinusitis 21884165 Active 2021 Not Available [facility] 3 01:25:18 Elevated blood-pressur e reading without diagnosis of hypertension 164366421 Active 2017 Not Available [facility] 3 01:25:18 Migraine 05909867 Active 2019 Not Available [facility] 3 01:25:18 Contact dermatitis 72679691 Active 2017 Not Available [facility] 3 01:25:18 Obese 870228078 Active 2017 Not Available [facility] 3 01:25:18 Obesity 529964567 Active 2019 Not Available [facility] 3 01:25:18 Eczema 60568290 Active 2021 Not Available [facility] 3 01:25:19 Sprain of ankle 50017808 Active 2019 Not Available [facility] 3 01:25:19 Anxiety 86495598 Active 2018 Not Available [facility] 3 01:25:19 Cough 45441890 Active 2021 Not Available [facility] 3 01:25:19 Wheezing 75616594 Active 2018 Not Available [facility] 3 01:25:19 Essential hypertension 80484436 Active 2017 Not Available [facility] 3 01:25:19 Allergic rhinitis 78895320 Active 2018 Not Available [facility] 3 01:25:19 Sleep apnea 51055937 Active 2018 Not Available [facility] 3 01:25:20 Dental caries 59367135 Active 2019 Not Available [facility] 3 01:25:20 Moderate persistent asthma 082374256 Active 2022 Cheyenne Smith NP [address] [facility] [place], [facility] [address], [place], [address] , [facility] 3 15:55:06 Seasonal allergic rhinitis 707527383 Active 2022 Cheyenne Smith NP [address] [facility], [facility] [address], [place], [address] , [facility] [employer] [facility] 3 15:55:43 Low back pain 808853659 Active 2022 Cheyenne Smith NP [address] [facility], [facility] [address], [place], [address] , [facility] [employer] [facility] 3 15:55:49 Acute sinusitis 02410075 Active 2022 Cheyenne Smith NP [address] [facility], [facility] [address], [place], [address] , [facility] [employer] [facility] 3 15:59:49 Notes:allergies Problem Notes None recorded. Medical Equipment None Reported. Allergies No known drug allergies Medications Name Sig Start Date Stop Date Status Note LastModified by Organization Details LastModified Time cyclobenzap rine 10 mg tablet Take 1 tablet 3 times a day by oral route. active Not Available Not Available No t Available amoxicillin 500 mg capsule TK ONE C PO Q 8 H TAT active Not Available Not Available No t Available medroxyprog esterone 10 mg tablet TAKE 1 TABLET BY MOUTH EVERY DAY FOR 7 DAYS 10/16 completed Not Available Not Available Not Available Miralax 17 gram/dose oral powder Take 17 g every day by oral route. active Not Available Not Available No t Available buspirone 5 mg tablet TAKE 1 TABLET BY MOUTH TWICE DAILY active Not Available Not Available No t Available nystatin 100,000 unit/mL oral suspension Take 5 mL 4 times a day by oral route for 7 days. active Not Available Not Available No t Available doxycycline hyclate 100 mg capsule Take 1 capsule twice a day by oral route for 10 days. 2022 active Not Available Not Available Not Avai lable nicotine 14 mg/24 hr daily transdermal patch LISANDRO 1 PA EXT TO THE SKIN QD active Not Available Not Available No t Available albuterol sulfate 2.5 mg/3 mL (0.083 %) solution for nebulizatio n USE 1 VIAL VIA NEBULIZER THREE TIMES DAILY NEEDED 2022 active Not Available Not Available Not Avai lable triamcinolo ne acetonide 0.5 % topical cream APPLY A THIN LAYER TO THE AFFECTED AREA ON LEG TWICE DAILY NEEDED FOR FOR 10-14 DAYS. active Not Available Not Available No t Available cetirizine 10 mg tablet TAKE 1 TABLET BY MOUTH DAILY active Not Available Not Available No t Available azithromyci n 250 mg tablet 08/16 completed Not Available Not Available Not Available ibuprofen 800 mg tablet TAKE 1 TABLET BY MOUTH THREE TIMES DAILY NEEDED FOR PAIN active Not Available Not Available No t Available alprazolam 1 mg tablet 12/06 completed Not Available Not Available Not Available fluconazole 150 mg tablet TAKE 1 TABLET BY MOUTH EVERY DAY FOR 5 DAYS active Not Available Not Available No t Available benzonatate 200 mg capsule Take 1 capsule every 8 hours by oral route as needed for 7 days. 10/16 completed Not Available Not Available Not Available sumatriptan 100 mg tablet TAKE 1 TABLET BY MOUTH ONCE FOR 1 DOSE. MAY REPEAT AFTER 2 HOURS IF PAIN PERSISTS. DISCONTIN UE IMITREX 50 MG active Not Available Not Available No t Available hydrocodone 5 mg-acetamin ophen 325 mg tablet TK 1 T PO Q 8 H PRN P active Not Available Not Available No t Available meloxicam 15 mg tablet Take 1 tablet every day by oral route with meals for 30 days. active Not Available Not Available No t Available lisinopril 20 mg tablet TAKE 1 TABLET BY MOUTH EVERY DAY active Not Available Not Available No t Available prednisone 20 mg tablet 08/16 completed Not Available Not Available Not Available phentermine 15 mg capsule TK 1 C PO QD active Not Available Not Available No t Available sumatriptan 50 mg tablet TAKE 1 TABLET BY MOUTH NEEDED FOR MIGRAINE; MAY REPEAT IN 2 HOURS IF SYMPTOMS PERSISTS 10/16 completed Not Available Not Available Not Available penicillin V potassium 500 mg tablet 02/23 completed Not Available Not Available Not Available phentermine 37.5 mg tablet TK 1 T PO QD active Not Available Not Available No t Available hydrocodone 10 mg-acetamin ophen 325 mg tablet 12/06 completed Not Available Not Available Not Available Kenalog 40 mg/mL suspension for injection Take 60 mg every day by injection route for 1 day. 02/02 completed Not Available Not Available Not Available oxycodone-a cetaminophe n 5 mg-325 mg tablet 02/23 completed Not Available Not Available Not Available amoxicillin 875 mg tablet Take 1 tablet every 12 hours by oral route for 10 days. 02/23 completed Not Available Not Available Not Available baclofen 10 mg tablet TAKE 1 TABLET BY MOUTH THREE TIMES DAILY 10/16 completed Not Available Not Available Not Available hydrocodone 7.5 mg-acetamin ophen 325 mg tablet TAKE 1 TABLET BY MOUTH EVERY 4 HOURS NEEDED 10/16 completed Not Available Not Available Not Available nicotine 21 mg/24 hr daily transdermal patch APPLY 1 PATCH D active Not Available Not Available No t Available docusate sodium 100 mg capsule TAKE 1 CAPSULE BY MOUTH EVERY DAY active Not Available Not Available No t Available zolpidem 5 mg tablet 1 tab po nightly active Not Available Not Available No t Available ibuprofen 600 mg tablet TK 1 T PO Q 6 H PRN P active Not Available Not Available No t Available methylpredn isolone 4 mg tablets in a dose pack FOLLOW PACKAGE DIRECTION S 10/16 completed Not Available Not Available Not Available albuterol sulfate HFA 90 mcg/actuati on aerosol inhaler INHALE 2 PUFFS BY MOUTH EVERY 4 HOURS NEEDED FOR WHEEZING active Not Available Not Available No t Available fluoxetine 20 mg capsule 12/06 completed Not Available Not Available Not Available fluticasone propionate 50 mcg/actuati on nasal spray,suspe nsion SHAKE LIQUID AND USE 1 SPRAY IN EACH NOSTRIL EVERY DAY 10/16 completed Not Available Not Available Not Available sertraline 50 mg tablet TK 1 T PO QD 12/06 completed Not Available Not Available Not Available naproxen 500 mg tablet TK 1 T PO BID WC active Not Available Not Available No t Available amoxicillin 875 mg-potassiu m clavulanate 125 mg tablet Take 1 tablet every 12 hours by oral route as directed for 10 days. 10/16 completed Not Available Not Available Not Available amoxicillin 500 mg-potassiu m clavulanate 125 mg tablet TAKE 1 TABLET BY MOUTH EVERY 12 HOURS FOR 7 DAYS 10/16 completed Not Available Not Available Not Available escitalopra m 10 mg tablet Take 1 tablet every day by oral route. 02/02 completed Not Available Not Available Not Available escitalopra m 20 mg tablet TAKE 1 TABLET BY MOUTH EVERY DAY active Not Available Not Available No t Available escitalopra m 5 mg tablet Take 1 tablet every day by oral route. 02/02 completed Not Available Not Available Not Available Symbicort 160 mcg-4.5 mcg/actuati on HFA aerosol inhaler INHALE 2 PUFFS BY MOUTH TWICE DAILY active Not Available Not Available No t Available Virtussin AC 10 mg-100 mg/5 mL oral liquid 08/16 completed Not Available Not Available Not Available COVID-19 test specimen collection TEST DIRECTED TODAY 10/16 completed Not Available Not Available Not Available Vitals Date Recorded Body mass index (BMI) Body height Oxygen saturation Oxygen saturation in Arterial blood by Pulse oximetry Heart rate Body temperature Body weight Systolic blood pressure Diastolic blood pressure Provider Name and Address Organization Details Last Updated DateTime 2 60.8 kg/m2 167.64 cm 98 % 98 % 92 /min 98 [degF] 843848. 32 g 142 mm[Hg] 94 mm[Hg] Not Available [facility] 3 01:15:51 Date Recorded Body height Body mass index (BMI) Body weight Body temperature Heart rate Respiratory rate Oxygen saturation Oxygen saturation in Arterial blood by Pulse oximetry Systolic blood pressure Diastolic blood pressure Provider Name and Address Organization Details Last Updated DateTime 3 167.64 cm 59 kg/m2 831559. 32 g 97.1 [degF] 90 /min 20 /min 93 % 93 % 148 mm[Hg] 90 mm[Hg] Cheyenne Hatch RN [place] [facility] 3 15:32:30 Social History Question Answer Notes LastModified by Organizat ion Details LastModified Time Tobacco Smoking Status Former Smoker Not Available [facility] 06/24/2022 01:07:08 Do You Have An Advance Directive? No Information not available 10/16/2022 What Is Your Level Of Alcohol Consumption? Occasional Information not available 10/16/2022 Is Blood Transfusion Acceptable In An Emergency? Yes Information not available 10/16/2022 What Is Your Level Of Caffeine Consumption? Occasional Information not available 10/16/2022 What Is Your Code Status? Full Code Information not available 10/16/2022 In The 14 Days Before Symptom Onset, Have You Had Close Contact With A Laboratory-confir med COVID-19 While That Case Was Ill? No [id number] Information not available 06/24/2022 In The 14 Days Before Symptom Onset, Have You Had Close Contact With A Person Who Is Under Investigation For COVID-19 While That Person Was Ill? No [id number] Information not available 06/24/2022 Are You Currently Employed? Yes Information not available 10/16/2022 What Type Of Diet Are You Following? REGULAR Weight Watcher Information not available 10/16/2022 Which Illicit Or Recreational Drugs Have You Used? MJ Information not available 10/16/2022 Do You Or Have You Ever Used E-cigarettes Or Vape? Current User Of Electronic Cigarettes Information not available 10/16/2022 What Is The Highest Grade Or Level Of School You Have Completed Or The Highest Degree You Have Received? 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 No Information no t available 10/16/2022 When Did You Quit Smoking? 1-5yearssince lastcigarette Information not available 10/16/2022 Are There Any Guns Present In Your Home? No Information not available 10/16/2022 How Many Years Have You Used Illicit Or Recreational Drugs? 5 Information not available 10/16/2022 Do You Use Insect Repellent Routinely? Yes Information not available 10/16/2022 Where Do You Live? Apartment Information not available 10/16/2022 Do You Have A Medical Power Of Saturation Equipment Operator? No Information not available 10/16/2022 How Many Children Do You Have? 0 Information not available 10/16/2022 Do You Have Any Pets? Yes Information not available 10/16/2022 What Is Your Relationship Status? Information not available 10/16/2022 Do You Use Your Seat Belt Or Car Seat Routinely? Yes Information not available 10/16/2022 Do You Have Smoke And Carbon Monoxide Detectors In Your Home? Yes Information not available 10/16/2022 At What Age Did You Start Smoking Tobacco? 15 Information not available 10/16/2022 Do You Or Have You Ever Used Smokeless Tobacco? Never Used Smokeless Tobacco [id number] Information not available 06/24/2022 Are There Any Smokers In Your House? No Information not available 10/16/2022 Do You Participate In Social Media? Yes Information not available 10/16/2022 Do You Feel Stressed (tense, Restless, Nervous, Or Anxious, Or Unable To Sleep At Night)? [id number] Information not available 10/16/2022 Do You Use Any Illicit Or Recreational Drugs? Yes Information not available 10/16/2022 Do You Use Sunscreen Routinely? Yes Information not available 10/16/2022 Has Tobacco Cessation Counseling Been Provided? No Information not available 10/16/2022 Have You Recently Traveled Abroad? No Information not available 10/16/2022 Have You Used IV Drugs? No Information not available 10/16/2022 Do You Or Have You Ever Used Any Other Forms Of Tobacco Or Nicotine? Yes Information not available 10/16/2022 How Many Years Have You Used E-cigarettes Or Vape? 2 Information not available 10/16/2022 Sex: Unknown Functional Status Question Answer Note LastModified by Organization D etails LastModified Time What is your exercise level? None Information not available 10/16/2022 Mental Status None recorded. Family History Nothing Reported. Medical History Condition Response BLINDNESS N BLADDER PROBLEMS N SLEEP APNEA N ALLERGIES/HAYFEVER N OTHER # 1 N INFECTIOUS DISEASE N LUNG DISEASE/DISORDER N HEART ARRHYTHMIA N INSOMNIA N RADIATION / CHEMOTHERAPY N COPD N HIGH CHOLESTEROL / HYPERLIPIDEMIA N Other # 2 N HYPERTHYROIDISM N NEUROLOGICAL PROBLEMS N BLOOD DISEASES N SURGERY N EDEMA N CHRONIC PAIN SYNDROME N EAR OR HEARING PROBLEMS N HYPOTHYROIDISM N BACK / NECK PROBLEMS N DEPRESSION (INCLUDING POST ) N HAVE YOU BEEN HOSPITALIZED OR SEEN IN [facility] IN THE PAST YEAR ? N STROKE/TIA N ULCERS N BENIGN PROSTATIC HYPERPLASIA N BREAST PROBLEMS N MYOCARDIAL INFARCTION N OBESITY Y GERD/NAUSEA N ANEURYSM N INPATIENT PSYCH CARE N CORONARY ARTERY DISEASE (CAD) N ARTHRITIS N USE OF BLOOD THINNERS N NO SIGNIFICANT PAST MEDICAL HISTORY N DIABETES, TYPE N GASTROINTESTINAL DISORDER N PARATHYROID DISEASE N ENT N SEASONAL ALLERGIES Y HEARTBURN / REFLUX N GASTROINTESTINAL BLEEDING N HEPATITIS / LIVER DISEASE N ASTHMA Y PULMONARY DISEASE N SLEEP DISORDER N ALZHEIMER'S DISEASE N FATIGUE N SEIZURES/EPILEPSY N HEADACHES/MIGRAINES N GI PROBLEMS N CHF N Low Testosterone N DIZZINESS N KIDNEY DISEASE N HEART DISEASE/HEART PROBLEMS N AIDS/HIV N FRACTURES N LIVER DISEASE N HYPERTENSION Y CANCER: SPECIFY N ANXIETY DISORDER Y BLOOD TRANSFUSION N ANEMIA/BLOOD DISORDER N ANESTHESIA COMPLICATIONS N CHRONIC EAR INFECTIONS N ATRIAL FIBRILLATION N PULMONARY EMBOLISM N AUTOIMMUNE DISEASE N TUBERCULOSIS N GLAUCOMA N FOOT PROBLEM N Gynecological History Statement/Question Response Flow Heavy Date of LMP 09/25/2022 STIs/STDs N Dislike of Light during Menstrual Headac he N Do your menstrual headaches get severe N Duration of Flow (days) 7 Most Recent Mammogram Age at Menarche 13 Breast Problems None Date of Last Colonoscopy Frequency of Cycle (Q days) Most Recent Bone Density Do you get headaches during your period N Menses Monthly Y Date of Last Pap Smear Discharge None Obstetrics History GPAL:G 0 P 0 0 0 0 Past Encounters Encounter ID Performer Location Encounter Start Date Encounter Closed Date Diagnosis/Indication Diagnosis SNOMED-CT Code Diagnosis ICD10 Code [id number] [facility] [place] [address] [place] [address] 07/10/2020 00:00:00 07/10/2020 14:36:[id number] [address] 08/14/2020 00:00:00 08/14/2020 16:30:[id number] [address] 03/13/2021 00:00:00 03/13/2021 13:07:[id number] [address] 10/16/2021 00:00:00 10/16/2021 17:51:[id number] [address] 01/29/2022 00:00:00 01/29/2022 16:49:[id number] [address] 03/27/2022 00:00:00 03/27/2022 13:47:15 [id number] Cheyenne Smith NP [address] [address] 10/16/2022 15:19:44 10/20/2022 11:08:56 Moderate persistent asthma 443436062 J45.40 Morbid obesity 492138989 E66.01 Essential hypertension 51975257 I10 Seasonal a llergic rhinitis 701875624 J30.2 Low back pain 596225891 M54.50 Constipation 99606124 K5 9.00 Migraine 83452203 G43.90 9 Mixed anxi ety and depressive disorder 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 F41.8 Acute sinusitis 86132216 J01.90 Hyperlipid emia screening 597691028 Z13.220 Diabetes m ellitus screening 554072654 Z13.1 Thyroid di sorder screening 519737964 Z13.29 [id number] Cheyenne Smith NP [address] [address] 10/20/2022 11:10:39 10/20/2022 11:40:58 Health Concerns Section Related Observation LastModified by Organization Detai ls LastModified Time None Recorded Concern Status LastModified by Organization Details LastModified Time None Recorded Advance Directives Directive N: Payers Encounter Date Sequence Insurance Name Policy Number Policy Phelps Covered Member ID Phelps Member ID Guarantor Name 10/16/2022 1 [facility] ON OR AFTER 10/24/20 (MEDICAID REPLACEMENT - HMO) Lynn Gonzalez [id number] Lynn Gonzalez 10/20/2022 1 [facility] ON OR AFTER 10/24/20 (MEDICAID REPLACEMENT - HMO) Lynn Gonzalez [id number] Lynn Gonzalez Notes Date Note Type Note Provider Name and Address Organization Details Recorded Time 10/16/2022 text/html Here for check u p. Asthma- States she has 3 inhalers in drawer at home. Using albuterol neb 2-3 times daily for the past month. Has some sinus involvement and still on symbicort.Obese- Stable. goes up and down daily. Doing weight watchers.Joint pain- hard time opening bottles. Has to take ibuprofen prior to work. Having ongoing muscle spasms. Rahul Horses at times in lower back.Migraine- prn. Aprox 2 monthly. Sumatriptan 100 mg works. Doesn't generally need second dose.Chest pain off and on- Worse with anxiety- Life at home is good.Cried more in the past 2 mo more than ever before.Periods are heavy, but not as bad. 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 Cheyenne Smith NP [address] [facility] [place], [facility] [address], [place], [address], [facility] [employer] 10/20/2022 21:21:26 OBGyn Episode No OBEpisode recorded.
--- OUTSIDE RECORDS SUMMARY | 2024-04-22 02:45 | XMS_ITS | Clinical Summary ---
Author Organization [facility] Address [address] [place] [address] Phone Care Team Providers Care Rotary Driller Name Role Phone Unavailable Primary Care Provider Unavailabl e Social History Tobacco Use Types Packs/Day Years Used Date Smoking Tobacco: Never Assessed Comments Unknown Sex and Gender Information Value Date Recorded Sex Assigned at Not on file Legal Sex Female 3:19 PM CDT Gender Identity Not on file Sexual Orientation Not on file Plan of Treatment Health Maintenance Due Date Last Done Comments Hepatitis C Virus (HCV) Screening 1985 Hepatitis B Immunization (1 of 3 - 19+ 3-dose series) 02/10/2004 Pap Smear 2006 Cervical Cancer Screening (CCS) 2015 HPV/Cotest 2015 SARS-COV-2 Immunization ( season) 2022 10/10/2020, 09/19/2020 Influenza Immunization (#1) 2023 DTaP/Tdap/Td Immunization Discontinued 07/02/2017 TdaP Immunization Completed 07/02/2017 Meningococcal Immunization (ACWY) Aged Out No longer eligible based on patient's age to complete this topic Pneumococcal Immunization Combined Aged Out No longer eligible based on patient's age to complete this topic Rotavirus Immunization Aged Out No lo nger eligible based on patient's age to complete this topic
--- OUTSIDE RECORDS SUMMARY | 2024-04-22 02:45 | XMS_ITS | Continuity of Care Document ---
Author Organization [facility] Address [address] [place] [address] Insurance Providers Payer Plan Claims Address Claims Phone Policy Number Group Number Relation Employer Guarantor Name Guarantor Guarantor Address Guarantor Phone [place] guzmán [facility] [id number] Self Lynn Gonzalez 1985 Formerly [facility] [address] [place] [address] [facility] [id number] Self Lynn Gonzalez 1985 [facility]ly [facility] [address], [place], [place] [id number] Problems Unknown Problems Results Test Value / Unit Interpretation Reference Ran Comp. Metabolic Panel (14)[[id number]]?Collected: 05/04/2023 05:11 PM?Specimen Received: 05/04/2023 05:00 AM?Source: [facility] Glucose [490388] 89 mg/dL 70-99 mg/dL BUN [744200] 11 mg/dL 6-20 mg/dL Creatinine [251919] 0.63 mg/dL 0.57-1.0 0 mg/dL eGFR [676002] 116 mL/min/1.73 >59 mL/min/ 1.73 BUN/Creatinine Ratio [044418] 17 9-23 Sodium [301037] 137 mmol/L 134-144 mmol /L Potassium [367421] 4.9 mmol/L 3.5-5.2 m mol/L Chloride [391753] 99 mmol/L 96-106 mmo l/L Carbon Dioxide, Total [598344] 26 mmol/L 20-29 mmol/L Calcium [684601] 9.2 mg/dL 8.7-10.2 mg /dL Protein, Total [429889] 7.3 g/dL 6.0- 8.5 g/dL Albumin [963655] 4.0 g/dL 3.9-4.9 g/d L Globulin, Total [849428] 3.3 g/dL 1.5 -4.5 g/dL A/G Ratio [752569] 1.2 1.2-2.2 Bilirubin, Total [414786] 0.4 mg/dL 0. 0-1.2 mg/dL Alkaline Phosphatase [378103] 64 IU/L 44-121 IU/L AST (SGOT) [562320] 26 IU/L 0-40 IU/ L ALT (SGPT) [242006] 28 IU/L 0-32 IU/ L Lipid Panel[607316]?Collected: 05/04/2023 05:11 PM?Specimen Received: 05/04/2023 05:00 AM?Source: [facility] Cholesterol, Total [668029] 199 mg/dL 100-199 mg/dL Triglycerides [405624] 139 mg/dL 0-149 mg/dL HDL Cholesterol [227965] 40 mg/dL >39 mg/dL VLDL Cholesterol Aba [993407] 25 mg/dL 5-40 mg/dL LDL Chol Calc (NIH) [570032] 134 mg/dL H 0-99 mg/dL Hemoglobin A1c[708951]?Collected: 05/04/2023 05:11 PM?Specimen Received: 05/04/2023 05:00 AM?Source: [facility] Hemoglobin A1c [672097] 5.3 % 4.8- 5.6 % . Prediabetes: 5.7 - 6.4 Di abetes: >6.4 Glycemic control for adults with diabetes: 7.0 Allergies, adverse reactions, alerts No known allergies and adverse reactions Medications No administered medications reported Vital Signs No vital signs reported Social History No smoking Hx information available
--- OUTSIDE RECORDS SUMMARY | 2024-04-22 02:45 | XMS_ITS | Data Portability ---
Author Organization [facility] [place] Address [address] [place] [address] Care Team Providers Care Stone Polisher Machine Name Role Phone BRITTANY SMITH Primary Care Provider [phone] Assessment Encounter Date Assessment Date Assessment LastModified by Organization Details LastModified Time 10/09/2020 10/09/2020 We discussed several possible causes for her irregular bleeding, including perimenopause, obesity/anovula tion, and PCOS. PCOS labs, TSH, A1C Discussed role of weight in ovulation and menstrual regulation. encouraged exercise, healthy diet, weight loss. we discussed surgical weight loss. Pt will probably want referral for this following start of her new insurance. WWE overdue- will schedule and will follow up on labs then. [email or web address] Not available 10/09/2020 13:44:13 11/26/2020 11/26/2020 healthy female exam patient declines std testing pap done, discussed guidelines mammogram at 40 contraception-t ubal discussed provera prn vs progesterone BC for prevention of hyperplasia. Pt prefers prn provera for now. script sent. will use if no menses in 3 mos. FU 1 year or prn [email or web address] Not available 11/27/2020 08:19:12 Plan of Treatment Reminders Order Date Submit Date Provider Last Modified By Organization Details Last Modified Time Details Appointments None recorded. Lab dhea-sulfat e, serum 2020 021 [facility] (Lab), [address], [place], [address], 22:14:15 estradiol, serum 06/2020 [facility] (Lab), [address], [place], [address], 1 22:14:16 FSH (follicle-s timulating hormone), serum 2020 [facility] (Lab), [address], [place], [address], 1 22:14:16 HbA1c (hemoglobin A1c), blood 2020 [facility] (Lab), [address], [place], [address], 1 22:14:17 prolactin, serum 2020 [facility] (Lab), [address] [place], [address], 1 22:14:16 TSH, serum or plasma 2020 [facility] (Lab), [address], [place], [address], 1 22:14:15 testosteron e free/testos terone total, ratio, serum 2020 [facility] (Lab), [address] [place], [address], 1 22:14:17 Referral None recorded. Procedures None recorded. Surgeries None recorded. Imaging None recorded. Medication Orders Provera 10 mg tablet 2020 [id number], [address], [place], [place], [id number], 18:08:26 Patient TargetsNo targets recorded. Patient InstructionsNo instructions recorded. Reason for Referral None Reported. Results Created Date Observation Date Name Description Value Unit Range Abnormal Flag Note LastModifiedBy Organization Detail LastModifiedTime 10/10/19 21 10/09/2020 TSH, serum or plasm a TSH 1.09 uIU/m L 0.30-5 .33 Not Available [facility] (Lab) [address] [place], [address], 10/12/2020 22:14:15 10/10/19 21 10/09/2020 dhea- sulfa te, serum DHEA-sulfate 223 ug/dL Femal e Range s Age(y ) Range (ug/d L) 10-15 34-28 0 15-20 65-36 8 20-25 148-4 07 25-35 99-34 0 35-45 61-33 7 45-55 35-25 6 55-65 19-20 5 65-75 9-246 > 75 12-15 4 Not Available [facility] (Lab) [address], [place], [address], 10/12/2020 22:14:15 10/10/19 21 10/09/2020 estra diol, serum estradiol 56.1 pg/mL This assay was perfo rmed using [employer] ratio n reage nts and test kits. Value s obtai maddi with other assay metho ds or kits canno t be used inter [facility] . Femal e Estra diol Range s: Folli cular phase 12.4- 233 pg/mL Ovula tion phase 41.0- 398 pg/mL Lutea l phase 22.3- 341 pg/mL Postm enopa usal< 5-138 pg/mL Healt hy Pregn ant Women 1st Trime ster1 54-32 43 pg/mL 2nd Trime ster1 561-2 1280 pg/mL 3rd Trime ster8 525-> 75491 pg/mL Not Available [facility] (Lab) [address], [place], [address], 10/12/2020 22:14:16 10/10/19 21 10/09/2020 FSH (foll icle- stimu latin g hormo ne), serum FSH 7.7 mIU/m L This assay was perfo rmed using [employer] ratio n reage nts and test kits. Value s obtai maddi with other assay metho ds or kits canno t be used inter [facility] . Femal es Folli cular : 3.5-1 2.5 mIU/m L Ovula tion: 4.7-2 1.5 mIU/m L Lutea l: 1.7-7 .7 mIU/m L Postm enopa use: 25.8- 134.8 mIU/m L Not Available [facility] (Lab) [address], [place], [address], 10/12/2020 22:14:16 10/10/19 21 10/09/2020 prola ctin, serum prolactin, total 7.50 NG/mL 4.79-2 3.30 This assay was perfo rmed using [employer] ratio n reage nts and test kits. Value s obtai maddi with other assay metho ds or kits canno t be used inter [facility] . Not Available [facility] (Lab) [address], [place], [address], 10/12/2020 22:14:16 10/10/19 21 10/09/2020 HbA1c (hemo globi n A1c), blood hemoglobin A1C 5.2 % 0-5.6 The Ameri can Diabe clarisa [employer] iatio n recom mends that a prima ry goal of thera py shoul d be a HBA1C of < 7% and that physi cians shoul d reeva luate the treat ment regim en in patie nts with HBA1C value s consi stent ly > 8%. <5.7% Racquel l 5.7 - 6.4% Incre ased risk for diabe clarisa >=6.5 % Diagn ostic of diabe clarisa <7.0% Goal of thera py >8.0% Actio n sugge sted Not Available [facility] (Lab) [address], [place], [address], 10/12/2020 22:14:17 10/10/19 21 10/09/2020 testo stero ne free/ testo stero ne total , ratio , serum testosterone , total 19 NG/dL 2-45 For addit ional infor chongchristopher n, norm e refer to http: //[facility] rayray montanezque stdia gnost ics.c om/fa q/Tot al Testo stero neLCM SMS (This link is being provi ded for infor matio nal/e ducat ional purpo ses only. ) This test was devel oped and its ricardo tical perfo rmanc e robina cteri stics have been deter mined by [employer]. It has not been clear ed or appro saumya by the FDA. This assay has been valid ated pursu ant to the CLIA regul ation s and is used for clini richard purpo ses. Not Available [facility] (Lab) [address], [place], [address], 10/12/2020 22:14:17 10/10/19 21 10/09/2020 testo stero ne free/ testo stero ne total , ratio , serum testosterone , free 1.7 pg/mL 0.1-6. 4 This test was devel oped and its ricardo tical perfo rmanc e robina cteri stics have been deter mined by [employer]. It has not been clear ed or appro saumya by the FDA. This assay has been valid ated pursu ant to the CLIA regul ation s and is used for clini richard purpo ses. Perfo rming Organ izati on Martínezr tyshawn n: Site ID: [id number] Name: [employer]-[facility] Addre ss: [id number] [place] [address] Direc tor: Nelson garner M.D. Not Available [facility] (Lab) [address] [place], [address], 10/12/2020 22:14:17 11/27/19 21 11/26/2020 IMAGE GUIDE D PAP AND HPV REGAR DLESS image guided Pap, HPV regardless of Pap result SEE RESULT S BELOW CASE REPOR T: Cytol ogy Gynec ologi richard Repor t Case: [id number] Autho carmen lara Provi fidel: Glendy Ya MD Colle cted: 11/26 1719 Order ing Locat ion: [place] Patho logelizabeth Recei saumya: 11/27 0029 First Scree n: Gregory [place], CT Speci men: Scree gil Pap - Image d, Cervi x STATE MENT OF ADEQU ACY: Satis facto ry for evalu ation Trans forma tion zone compo nent prese nt FINAL DIAGN OSIS: Negat mandeep for Intra epith elial Lesio n or Malig immanuel Elect karla valencia benjamin d by Gregory [place], CT on 021 at 3:32 PM ----- ----- ----- ----- ----- ----- ----- ----- ----- ----- ----- ----- ----- ----- ----- ----- ----- ---- HPV RESUL TS: HPV mRNA E6/E7 : No HPV mRNA Detec rosalva NOTE: This high risk HPV mRNA assay detec ts fourt een high- risk HPV types (16, 18, 31, 33, 35, 39, 45, 51, 52, 56, 58, 59, 66, 68) witho ut diffe renti ation . CHART ABLE COMME NT: Note: This speci men was revie wed by a Cytot echno logis t and/o r Patho logis t (as indic ated in this repor t) after evalu ation using the Thinp rep Imagi ng Syste m. CLINI RICHARD INFOR MATIO N: Menst rual Statu s: LMP (if appli cable ): 021 Clini richard Histo ry/Pr eviou s Pap: Type of Neopl toño (if appli cable ): Signi fican t Clini richard Findi ngs: Other Histo ry: Hormo cheryl (if appli cable ): PAP EDUCA PILLO L NOTE: The Pap Test is a scree gil test with an inher ent false negat mandeep rate. Liqui d-bas e sampl ing may decre ase, but will not elimi brandi, false negat mandeep resul ts. A negat mandeep resul t does not precl ude the prese nce and/o r devel opmen t of disea se, since the prese nce of abnor mal cells in the sampl e depen ds on the locat ion of the lesio n and sampl ing techn ique. Ernie nued regul ar scree gil is the best metho d of cance r preve ntion . If repor rosalva cytol ogic findi ng do not corre late with physi richard and/o r histo rical findi ngs, furth er inves tigat ion is recom germán d, as clini leatha mera nted. Not Available [facility] (Lab) [address], [place], [address], 11/27/2020 16:35:11 Result Notes None recorded. Problems Name Problem SNOMED Code Status Onset Date Resolution Date Notes Provider Name and Address Organization Details Recorded Time Body mass index 40+ - severely obese [id number] Active 2020 BMI 58 09/2020 Glendy Jones MD [address], [place], [address], [facility] 12:29:43 Body mass index 30+ - obesity [id number] Completed 201710/09/2020 Body mass index (BMI) 50-59.9 , adult;Re corded Elsewher e: No Locat ion: [facility] S ource: EHR Event Promoter vinicio: N Pawan ce ID: [id number] lable Time: 10:30:00 AM Glendy Jones MD [address], [place], [address], [facility] 12:29:24 Insertio n of intraute rine contrace ptive device Completed 201010/09/2020 INSERTIO N OF IUD;Prince rded Elsewher e: No Locat ion: [facility] S ource: EHR Event Promoter vinicio: N Practi ce ID: [id number] Ten lable Time: 01:30:00 PM Glendy Jones MD [address], [place], [address], [facility] 12:27:21 Galactor florinda not associat ed with childbir [id number] Completed 201310/09/2020 Galactor florinda;Rec orded Elsewher e: No Locat ion: [facility] S ource: EHR Event Promoter vinicio: N Practi ce ID: [id number] Ten lable Time: 10:30:00 AM Glendy Jones MD [address], [place], [address], [facility] 12:26:59 Normal pregnanc y in multigra alyssa [id number] 89509 Completed 201710/09/2020 Encounte r for suprvsn of normal pregnanc y, third trimeste r;Record ed Elsewher e: No Locat ion: [facility] S ource: EHR Event Promoter vinicio: N Rosibelti ce ID: [id number] Ten lable Time: 09:15:00 AM Glendy Jones MD [address], [place], [address], [facility] 12:27:47 Pregnanc y test negative 051280945 Completed 201010/09/2020 Pregnanc y examinat ion or test, negative result;R ecorded Elsewher e: No Locat ion: [facility] S ource: EHR Event Promoter vinicio: N Practi ce ID: [id number] Ten lable Time: 01:30:00 PM Glendy Jones MD [address], [place], [address], [facility] 12:27:53 Severe obesity complica ting pregnanc y [id number] 3640436 Completed 201710/09/2020 Obesity complica ting pregnanc y, third trimeste r;Record ed Elsewher e: No Locat ion: [facility] S ource: EHR Event Promoter vinicio: N Practi ce ID: [id number] Ten lable Time: 10:30:00 AM Glendy Jones MD [address], [place], [address], [facility] 1 12:28:01 Isabela ry postpart um mood disturba nce 61767099 Completed 201710/09/2020 Postpart um mood disturba nce;Prince rded Elsewher e: No Locat ion: [facility] S ource: EHR Event Promoter vinicio: N Practi ce ID: [id number] Ten lable Time: 09:00:00 AM Glendy Jones MD [address], [place], [address], [facility] 1 12:28:19 Candidia sis of skin and nails Completed 201110/09/2020 Candidia sis of skin and nails;Re corded Elsewher e: No Locat ion: [facility] S ource: EHR Event Promoter vinicio: N Practi ce ID: [id number] Tne lable Time: 08:45:00 AM Glendy Jones MD [address], [place], [address], [facility] 1 12:26:54 Hyperten guadalupe in the obstetri c context Completed 201710/09/2020 Pre-exis ting essentia l htn comp pregnanc y, third trimeste r;Record ed Elsewher e: No Locat ion: [facility] S ource: EHR Event Promoter vinicio: N Practi ce ID: [id number] lable Time: 11:00:00 AM Glendy Jones MD [address], [place], [address], [facility] 12:27:16 Steriliz ation procedur e Completed 201710/09/2020 Encounte r for steriliz ation;Re corded Elsewher e: No Locat ion: [facility]a [facility] S ource: EHR Event Promoter vinicio: N Rosibelti ce ID: [id number] Ten lable Time: 10:00:[address] MD [address], [place], [address], [facility] 1 12:28:11 Gestatio n period, 32 weeks [id number] Completed 201710/09/2020 32 weeks gestatio n of pregnanc y;Record ed Elsewher e: No [facility]at ion[facility]: E[facility] Event Promoter vinicio: N Rosibelti ce ID: [id number] Ten lable Time: 11:00:00 AM Glendy Jones MD [address], [place], [address], [facility] 1 12:27:05 Clinical finding Completed 201710/09/2020 Obesity, unspecif ied;Prince rded Elsewher e: No Locat ion: [facility] S ource: EHR Event Promoter vinicio: N Rosibelti ce ID: [id number] Ten lable Time: 10:30:00 AM Glendy Jones MD [address], [place], [address], [facility] 1 12:27:01 Gestatio n period, 30 weeks [id number] Completed 201710/09/2020 30 weeks gestatio n of pregnanc y;Record ed Elsewher e: No Locat ion: [facility] S ource: EHR Event Promoter vinicio: N Rosibelti ce ID: [id number] Ten lable Time: 11:00:00 AM Glendy Jones MD [address], [place], [address], [facility] 1 12:27:35 Amenorrh ea [id number] Completed 201610/09/2020 Amenorrh ea, unspecif ied;Prince rded Elsewher e: No Locat ion: [facility] S ource: EHR Event Promoter vinicio: N Practi ce ID: [id number] Ten lable Time: 08:30:00 AM Glendy Jones MD [address], [place], [address], [facility] 1 12:26:35 Large fetus [id number] Completed 201710/09/2020 Maternal care for excess growth, third trimeste r, unsp;Rec orded Elsewher e: No Locat ion: [facility] S ource: EHR Event Promoter vinicio: N Practi ce ID: [id number] Ten lable Time: 09:00:00 AM Glendy Jones MD [address], [place], [address], [facility] 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 1 12:28:07 Antenata l screenin g for malforma tion Completed 201610/09/2020 Encounte r for antenata l screenin g for malforma tions;Re corded Elsewher e: No Locat ion: [facility] S ource: EHR Event Promoter vinicio: N Practi ce ID: [id number] Ten lable Time: 10:30:00 AM Glendy Jones MD [address], [place], [address], [facility] 1 12:26:39 Gestatio n period, 35 weeks [id number] Completed 02/20/ 2018 10/09/2020 35 weeks gestatio n of pregnanc y;Record ed Elsewher e: No Locat ion: [facility] S ource: EHR Event Promoter vinicio: N Rosibelti ce ID: [id number] Ten lable Time: 09:45:00 AM Glendy Jones MD [address], [place], [address], [facility] 1 12:27:07 Gestatio n period, 8 weeks [id number] Completed 201610/09/2020 8 weeks gestatio n of pregnanc y;Record ed Elsewher e: No Locat ion: [facility] S ource: EHR Event Promoter vinicio: N Rosibelti ce ID: [id number] Ten lable Time: 01:00:00 PM Glendy Jones MD [address], [place], [address], [facility] 1 12:27:13 Screenin g for malignan t neoplasm of cervix Completed 201210/09/2020 Screenin g for malignan t neoplasm s of the cervix;R ecorded Elsewher e: No Locat ion: [facility] S ource: EHR Event Promoter vinicio: N Pawan ce ID: [id number] Ten lable Time: 08:45:00 AM Glendy Jones MD [address], [place], [address], [facility] 1 12:27:56 Uterine size for dates discrepa ncy Completed 201710/09/2020 Uterine size-dmitry e discrepa ncy, third trimeste r;Record ed Elsewher e: No Locat ion: [facility] S ource: EHR Event Promoter vinicio: N Rosibelti ce ID: [id number] Ten lable Time: 11:00:00 AM Glendy Jones MD [address], [place], [address], [facility] 1 12:28:23 Uterine size for dates discrepa ncy Completed 201610/09/2020 Uterine size-dmitry e discrepa ncy, first trimeste r;Record ed Elsewher e: No Locat ion: [facility] S ource: EHR Event Promoter vinicio: N Practi ce ID: [id number] Ten lable Time: 01:00:00 PM Glendy Jones MD [address], [place], [address], [facility] 12:28:[address] Concept Completed 201610/09/2020 Encntr for education associate exam (general ) (routine ) w/o abn findings ;Recorde d Elsewher e: No Locat ion: [facility]iff[facility] S ource: EHR Event Promoter vinicio: N Practi ce ID: [id number] Ten lable Time: 02:30:00 PM Glendy Jones MD [address], [place], [address], [facility] 12:28:06 Speciali zed medical examinat ion Completed 201310/09/2020 Other specifie d chlamydi al diseases ;Recorde d Elsewher e: No Locat ion: [facility] griff[facility] S ource: EHR Event Promoter vinicio: N Practi ce ID: [id number] Ten lable Time: 10:30:00 AM Gledny Jones MD [address], [place], [address], [facility] 12:28:10 Gestatio n period, 36 weeks [id number] Completed 201710/09/2020 36 weeks gestatio n of pregnanc y;Record ed Elsewher e: No Locat ion: [facility] S ource: EHR Event Promoter vinicio: N Practi ce ID: [id number] lable Time: 09:00:00 AM Glendy Jones MD [address], [place], [address], [facility] 12:27:09 Venereal disease screenin g Completed 201310/09/2020 Screenin g examinat ion for venereal disease; Recorded Elsewher e: No [facility]: E[facility] Event Promoter vinicio: N Practi ce ID: [id number] Ten lable Time: 10:30:00 AM Glendy Jones MD [address], [place], [address], [facility] 12:28:26 Female genital organ symptoms [id number] Completed 201010/09/2020 Unspecif ied symptom associat ed with female genital organs;R ecorded Elsewher e: No Locat ion: [facility] S ource: EHR Event Promoter vinicio: N Rosibelti ce ID: [id number] Ten lable Time: 01:30:00 PM Glendy Jones MD [address], [place], [address], [facility] 12:26:56 Infectio n screenin g Completed 201510/09/2020 Encounte r for screenin g for oth infec/pa rastc diseases ;Recorde d Elsewher e: No Locat ion: [facility] S ource: EHR Event Promoter vinicio: N Rosibelti ce ID: [id number] Ten lable Time: 01:15:00 PM Glendy Jones MD [address], [place], [address], [facility] [address] 12:27:[address] Concept Completed 201610/09/2020 Encntr for general adult medical exam w/o abnormal findings ;Recorde d Elsewher e: No Locat ion: [facility] S ource: EHR Event Promoter vinicio: N Practi ce ID: [id number] Ten lable Time: 02:30:00 PM Glendy Jones MD [address], [place], [address], [facility] 1 12:28:03 Lochia finding Completed 201710/09/2020 Encounte r for routine postpart um follow-u p;Record ed Elsewher e: No Locat ion: [facility] S ource: EHR Event Promoter vinicio: Arelis Villalta ce ID: [id number] Ten lable Time: 09:00:00 AM Glendy Jones MD [address], [place], [address], [facility] 1 12:27:42 Antenata l screenin g Completed 201610/09/2020 Encounte r for other antenata l screenin g follow-u p;Record ed Elsewher e: No Locat ion: [facility] S ource: EHR Event Promoter vinicio: Arelis Villalta ce ID: [id number] Ten lable Time: 10:15:00 AM Glendy Jones MD [address], [place], [address], [facility] 1 12:26:37 Non-prot einuric hyperten guadalupe of pregnanc y [id number] Completed 201710/09/2020 Gestatio nal [pregnan cy-induc ed] hyperten guadalupe without signific ant proteinu tim, complica ting the puerperi um;Recor ded Elsewher e: No Locat ion: [facility] S ource: EHR Event Promoter vinicio: Arelis Villalta ce ID: [id number] Ten lable Time: 08:45:00 AM Glendy Jones MD [address], [place], [address], [facility] 1 12:27:45 Removal of intraute rine device Completed 201610/09/2020 Encounte r for removal of intraute rine contrace ptive device;R ecorded Elsewher e: No Locat ion: [facility] S ource: EHR Event Promoter vinicio: Arelis Villalta ce ID: [id number] Ten lable Time: 09:15:00 AM Glendy Jones MD [address], [place], [address], [facility] 1 12:27:55 Syphilis test finding [id number] Completed 201510/09/2020 Encntr screen for infectio ns w sexl mode of transmis s;Record ed Elsewher e: No Locat ion: [facility] S ource: EHR Event Promoter vinicio: N Rosibelti ce ID: [id number] Ten lable Time: 01:15:00 PM Glendy Jones MD [address], [place], [address], [facility] 1 12:28:16 Uses IUD (intraut erine device) contrace ption [id number] Completed 201011/26/2020 Surveill ance of intraute rine contrace ptive device;R ecorded Elsewher e: No Locat ion: [facility] S ource: EHR Event Promoter vinicio: N Rosibelti ce ID: [id number] Ten lable Time: 01:30:00 PM [facility] 17:24:38 Pregnanc y detectio n examinat ion Completed 201610/09/2020 Encounte r for pregnanc y test, result positive ;Recorde d Elsewher e: No [facility] [place] [facility] [place] S ource: EHR Event Promoter vinicio: N Rosibelti ce ID: [id number] Ten lable Time: 08:30:00 AM Glendy Jones MD [address], [place], [address], [facility] 1 12:27:49 Insertio n of subcutan eous contrace ptive Completed 201010/09/2020 Insertio n of implanta ble subderma l contrace ptive;Pr actice ID: [id number] Glendy Jones MD [address], [place], [address], [facility] 12:27:23 Subcutan eous contrace ptive implant present [id number] Completed 201010/09/2020 Surveill ance of implanta ble subderma l contrace ptive;Pr actice ID: [id number] Glendy Jones MD [address], [place], [address], [facility] 12:28:14 Secondar y amenorrh ea [id number] Completed 201610/09/2020 Secondar y amenorrh ea;Pract ice ID: [id number] Glendy Jones MD [address], [place], [address], [facility] 12:27:59 Single live [id number] Completed 201710/09/2020 Single live ;Pr actice ID: [id number] Glendy Jones MD [address], [place], [address], [facility] 12:28:33 Gestatio n period, 37 weeks [id number] Completed 201710/09/2020 37 weeks gestatio n of pregnanc y;Practi ce ID: [id number] Glendy Jones MD [address], [place], [address], [facility] 12:27:11 Problem Notes None recorded. Procedures Surgical History Date Name Laterality Status Provider Name and Address Organization Details Recorded Time 08/25/19 18 Tubal Ligation completed [facility] 10/09/2020 09:39:05 09/09/19 17 Date of Last Pap Smear completed [facility] 10/09/2020 09:41:03 04/26/19 [address] [facility] 10/09/2020 09:39:17 procedure on hip completed Aparna Mcaley [facility] 10/09/2020 11:59:49 Imaging Results None recorded. Procedure Notes None recorded. Medical Equipment None Reported. Allergies No known drug allergies Medications Name Sig Start Date Stop Date Status Note LastModified by Organization Details LastModified Time amoxicill in 500 mg capsule TK ONE C PO Q 8 H TAT 10/09 completed Not Available Not Available Not Available medroxypr ogesteron e 10 mg tablet TAKE 1 TABLET BY MOUTH EVERY DAY FOR 7 DAYS active Not Available Not Available No t Available Miralax 17 gram/dose oral powder DISSOLVE 17 GRAMS IN LIQUID AND DRINK BY MOUTH EVERY DAY 10/09 completed Not Available Not Available Not Available nystatin 100,000 unit/mL oral suspensio n SHAKE LIQUID AND TAKE 5 ML BY MOUTH FOUR TIMES DAILY FOR 7 DAYS 10/09 completed Not Available Not Available Not Available albuterol sulfate 2.5 mg/3 mL (0.083 %) solution for nebulizat ion active Not Available Not Available Not Available triamcino lone acetonide 0.5 % topical cream APPLY A THIN LAYER TO THE AFFECTED AREA ON RIGHT HAND TWICE DAILY NEEDED FOR 10 TO 14 DAYS active Not Available Not Available No t Available cetirizin e 10 mg tablet TAKE 1 TABLET BY MOUTH DAILY active Not Available Not Available No t Available Stool Softener 100 mg capsule TAKE 1 CAPSULE BY MOUTH EVERY DAY active Not Available Not Available No t Available ibuprofen 800 mg tablet TAKE 1 TABLET BY MOUTH THREE TIMES DAILY NEEDED FOR PAIN active Not Available Not Available No t Available citalopra m 10 mg/5 mL oral solution take 10 millilit er by oral route every day 07/23 completed Prescrib ed Elsewher e: Yes Loca tion: [facility] [place] [facility] [place] M odify By: [email or web address] Encounte r DateTime : 11/28/19 14 10:30:00 AM Not Available Not Available Not Available fluconazo le 150 mg tablet TAKE 1 TABLET BY MOUTH EVERY DAY FOR 5 DAYS 10/09 completed Not Available Not Available Not Available sumatript an 100 mg tablet TAKE 1 TABLET BY MOUTH ONCE FOR 1 DOSE. MAY REPEAT AFTER 2 HOURS IF PAIN PERSISTS . DISCONTI NUE IMITREX 50 MG 10/09 completed Not Available Not Available Not Available hydrocodo ne 5 mg-acetam inophen 325 mg tablet TK 1 T PO Q 8 H PRN P 10/09 completed Not Available Not Available Not Available lisinopri l 20 mg tablet TAKE 1 TABLET BY MOUTH EVERY DAY active Not Available Not Available No t Available sumatript an 50 mg tablet active Not Available Not Available Not Available Metrogel Vaginal 0.75 % (37.5 mg/5 gram) insert 1 applicat orful (37.5MG) by vaginal route every day at bedtime 10/03 completed Prescrib ed Elsewher e: No Locat ion: [facility] odify By: leslie tsang DateTime : 09/03/19 12 10:29:15 AM Not Available Not Available Not Available Zoloft 50 mg tablet TAKE 1 TABLET BY ORAL ROUTE EVERY DAY 10/09 completed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
--- OUTSIDE RECORDS SUMMARY | 2024-04-22 02:45 | XMS_ITS | Encounter Summary ---
Author Organization [facility] Address [address] [place] [address] Care Team Providers Care Conveyor Tender [employer]ing [employer] Name Role Phone Unavailable Primary Care Provider Unavailabl e Encounter Details Date Type Department Care Team (Late st Contact Info) Description 05/07/2020 1:00 PM HR GENERALIST Rapid Evaluation [place] [facility] Mobile Testing [address] [place] [address] Social History Tobacco Use Types Packs/Day Years Used Date Smoking Tobacco: Never Assessed Comments Unknown Sex and Gender Information Value Date Recorded Sex Assigned at Not on file Legal Sex Female 3:19 PM CDT Gender Identity Not on file Sexual Orientation Not on file documented as of this encounter Plan of Treatment Not on file documented as of this encounter Visit Diagnoses Not on filedocumented in this encounter
--- OUTSIDE RECORDS SUMMARY | 2024-04-22 02:46 | XMS_ITS | Encounter Summary ---
Author Organization [facility] Address [address] [place] [address]. [place], [place] [address] [place] [address] Care Team Providers Care Systems Applications Programming Lead Name Role Phone Murtaza Barrett MD Primary Care Provider Kathy delatorre Encounter Details Date Type Department Care Team (Latest Contact Info) Description 09/03/2016 Abstract [facility] Social History Tobacco Use Types Packs/Day Years Used Date Smoking Tobacco: Never Assessed Comments Unknown Sex and Gender Information Value Date Recorded Sex Assigned at Not on file Legal Sex Female 9:13 PM CDT Gender Identity Not on file Sexual Orientation Not on file documented as of this encounter Plan of Treatment Not on file documented as of this encounter Visit Diagnoses Not on filedocumented in this encounter Care Teams Systems Applications Programming Lead Relationship Specialty Start Date End Date Murtaza Barrett MD PCP - General 08/19/16 documented as of this encounter
--- OUTSIDE RECORDS SUMMARY | 2024-04-22 02:46 | XMS_ITS | Encounter Summary ---
Author Organization [facility] Address [address] [place] [address]. [place], [place] [address] [place] [address] Care Team Providers Care Studio Associate Name Role Phone Murtaza Barrett MD Primary Care Provider Kathy delatorre Encounter Details Date Type Department Care Team (Latest Contact Info) Description 04/23/2015 Abstract [facility] Social History Tobacco Use Types Packs/Day Years Used Date Smoking Tobacco: Never Assessed Comments Unknown Sex and Gender Information Value Date Recorded Sex Assigned at Not on file Legal Sex Female 9:13 PM CDT Gender Identity Not on file Sexual Orientation Not on file documented as of this encounter Progress Notes * Generic Conversion MD Milton - 04/23/2015 3:20 PM CST Message Recorded as Task Date: 04/23/2015 02:53 PM, Created By: Melani Mejia Task Name: Medical Complaint Callback Assigned To: [facility] Team Arnold Regarding Patient: Lynn Gonzalez, Status: In Progress Comment: Melani Mejia - 23 Apr 2015 2:53 PM TASK CREATED Runny nose, productive cough, fever x 2weeks. No relief with otc. #[phone] [place] Murtaza Flood - 23 Apr 2015 3:05 PM TASK REASSIGNED: Previously Assigned To Murtaza Barrett Natalie - 23 Apr 2015 3:20 PM TASK IN PROGRESS Message: pt notified, rx sent--nk Plan 1. Azithromycin 250 MG Oral Tablet; TAKE 2 TABLETS ON DAY 1 THEN TAKE 1 TABLET A DAY FOR 4 DAYS Rx By: Murtaza Barrett; Dispense: 0 Days ; #:6 Tablet; Refill: 0; For: Upper respiratory infection; ELIE = N; Sent To: [facility] # [id number]; Last Updated By: Luzma Alvarez; 04/23/2015 3:21:17 PM Signatures Electronically signed by : Luzma Alvarez, ; Apr 23 2015 3:21PM MARKET SALES MANAGER (Author) documented in this encounter Plan of Treatment Not on file documented as of this encounter Visit Diagnoses Not on filedocumented in this encounter Care Teams Studio Associate Relationship Specialty Start Date End Date Murtaza Barrett MD PCP - General 08/19/16 documented as of this encounter
--- OUTSIDE RECORDS SUMMARY | 2024-04-22 02:46 | XMS_ITS | Encounter Summary ---
Author Organization [facility] Address [address] [place] [address]. [place], [place] [address] [place] [address] Care Team Providers Care Switchboard Wirer Name Role Phone Murtaza Barrett MD Primary Care Provider Kathy delatorre Encounter Details Date Type Department Care Team (Late st Contact Info) Description 11/02/2014 Abstract [facility] Family & Internal Medicine - [address] [phone] Murtaza Barrett MD Social History Tobacco Use Types Packs/Day Years Used Date Smoking Tobacco: Never Assessed Comments Unknown Sex and Gender Information Value Date Recorded Sex Assigned at Not on file Legal Sex Female 9:13 PM CDT Gender Identity Not on file Sexual Orientation Not on file documented as of this encounter Last Filed Vital Signs Vital Sign Reading Time Taken Comments Blood Pressure 153/95 11/02/2014 9:56 AM CDT Pulse 72 11/02/2014 9:56 AM CDT Temperature - - Respiratory Rate - - Oxygen Saturation - - Inhaled Oxygen Concentration - - Weight 153 kg (337 lb 4 oz) 11/02/2014 9:56 AM C DT Height 165.1 cm (5' 5 ) 11/02/2014 9:56 AM CDT Body Mass Index 56.12 11/02/2014 9:56 AM CDT documented in this encounter Progress Notes * Murtaza Barrett MD - 11/02/2014 10:00 AM CDT Reason For Visit Reason For Visit: Acute Visit Chief Complaint Patient c/o itchy spots on both legs for over a month. History of Present Illness HPI Free Text: Here complaining of two itchy spots on both of her legs that are increasing in size over the last month. Qmrg-[id number]-[id number] creams have not helped. She continues her blood pressure medicine without chest pain, shortness of breath or swelling in her legs. Review of Systems See HPI for pertinent positives. Constitutional: not feeling poorly. Cardiovascular: no chest pain and no palpitations. Respiratory: no shortness of breath and no cough. Active Problems 1. Depression (311) (F32.9) 2. Epidermal inclusion cyst (706.2) (L72.0) 3. Fatigue (780.79) (R53.83) 4. Headache (784.0) (R51) 5. Hypertension (401.9) (I10) 6. Neck pain (723.1) (M54.2) 7. Upper respiratory infection (465.9) (J06.9) Past Medical History 1. History of hypertension (V12.59) (Z86.79) Surgical History 1. History of Hip Surgery 2. History of Tonsillectomy Family History Mother 1. No pertinent family history Father 2. No pertinent family history Maternal Grandmother 3. Family history of diabetes mellitus (V18.0) (Z83.3) 4. Family history of hypertension (V17.49) (Z82.49) Paternal Grandmother 5. Family history of diabetes mellitus (V18.0) (Z83.3) 6. Family history of hypertension (V17.49) (Z82.49) Maternal Great Grandmother 7. Family history of diabetes mellitus (V18.0) (Z83.3) 8. Family history of hypertension (V17.49) (Z82.49) Paternal Great Grandmother 9. Family history of diabetes mellitus (V18.0) (Z83.3) 10. Family history of hypertension (V17.49) (Z82.49) Social History ?? Never a smoker ?? Single Current Meds 1. Citalopram Hydrobromide 20 MG Oral Tablet; TAKE ONE TABLET BY MOUTH ONE TIME DAILY; Therapy: 05Mar2014 to (Evaluate:05Aug2014) Requested for: 07May2014; Last Rx:07May2014 Ordered Rx By: Murtaza Barrett; Dispense: 0 Days ; #:30 Tablet; Refill: 5; For: Depression; ELIE = N; Verified Transmission to [facility] [id number]; Last Updated By: Burt; 05/07/2014 8:57:07 AM 2. Losartan Potassium 50 MG Oral Tablet; TAKE 1 TABLET BY MOUTH EVERY DAY; Therapy: 05Mar2014 to (Evaluate:31Oct2014) Requested for: 01Oct2014; Last Rx:01Oct2014 Ordered Rx By: Murtaza Barrett; Dispense: 30 Days ; #:30 TAB; Refill: 0; For: Hypertension; ELIE = N; Verified Transmission to [facility]; Last Updated By: Burt; 10/01/2014 10:14:57 AM 3. ProAir HFA 108 (90 Base) MCG/ACT Inhalation Aerosol Solution; INHALE TWO PUFFS BY MOUTH EVERY 4 HOURS; Therapy: 12Jun2014 to (Evaluate:12Jul2014) Requested for: 12Jun2014; Last Rx:12Jun2014 Ordered Rx By: Murtaza Barrett; Dispense: 30 Days ; #:1 X 8.5 GM Inhaler; Refill: 0; For: Upper respiratory infection; ELIE = N; Verified Transmission to [facility]; Last Updated By: Burt; 06/12/2014 1:51:24 PM 4. SUMAtriptan Succinate 100 MG Oral Tablet; TAKE ONE TABLET AT ONSET AND MAY REPEAT IN 2 HOURS--MAXIMUM OF 2 TABLETS IN 24 HOURS; Therapy: 05Mar2014 to (Last Rx:05Mar2014) Requested for: 05Mar2014 Ordered Rx By: Murtaza Barrett; Dispense: 0 Days ; #:9 Tablet; Refill: 0; For: Headache; ELIE = N; VerifiedTransmission to [facility]; Last Updated By: Burt; 03/05/2014 3:58:55 PM Allergies 1. No Known Drug Allergies Recorded By: Magda Bermudez; 09/04/2013 1:03:31 PM Vitals Recorded: 02Nov2014 09:56AM Heart Rate 72 Respiration 18 Systolic 153 Diastolic 95 O2 Saturation 97 Height 5 ft 5 in Weight 337 lb 4 oz BMI Calculated 56.12 BSA Calculated 2.47 Physical Exam Constitutional General appearance: No acute distress, well appearing and well nourished. Pulmonary Respiratory effort: No increased work of breathing or signs of respiratory distress. Auscultation of lungs: Clear to auscultation. Cardiovascular Auscultation of heart: Normal rate and rhythm, normal S1 and S2, without murmurs. Musculoskeletal Gait and station: Normal. Skin Examination of the skin for lesions: Abnormal. There are small well-defined islands of flaking minimally erythematous skin on the legs. Assessment 1. Hypertension (401.9) (I10) 2. Rash (782.1) (R21) Plan Hypertension 1. From Losartan Potassium 50 MG Oral Tablet TAKE 1 TABLET BY MOUTH EVERY DAY To Losartan Potassium 100 MG Oral Tablet TAKE ONE TABLET BY MOUTH EVERY DAY Rx By: Murtaza Barrett; Dispense: 30 Days ; #:30 Tablet; Refill: 5; For: Hypertension; ELIE = N; Sent To: [facility] # [id number]; Last Updated By: Maya Díaz; 10/01/2014 10:14:57 AM Rash 2. Clotrimazole-Betamethasone 1-0.05 % External Cream; APPLY AND RUB IN A THIN FILM TO AFFECTED AREAS TWICE DAILY.(AM AND PM) Rx By: Murtaza Barrett; Dispense: 0 Days ; #:1 X 45 GM Tube; Refill: 0; For: Rash; ELIE = N; Sent To: [facility] # [id number]; Last Updated By: Maya Díaz 3. Call if: The symptoms are not better in 7 days.; Status:Active; Requested for:[id number]; Ordered; For:Rash; Ordered By:Murtaza Barrett; Signatures Electronically signed by : Murtaza Barrett M.D.; Nov 07 2014 11:30PM VIGOUREUX PRINTER (Author) documented in this encounter Plan of Treatment Not on file documented as of this encounter Visit Diagnoses Not on filedocumented in this encounter Care Teams Switchboard Wirer Relationship Specialty Start Date End Date Murtaza Barrett MD PCP - General 08/19/16 documented as of this encounter
--- OUTSIDE RECORDS SUMMARY | 2024-04-22 02:46 | XMS_ITS | Encounter Summary ---
Author Organization [facility] Address [address] [place] [address]. [place], [place] [address] [place] [address] Care Team Providers Care Paper Bag Machine Operator Name Role Phone Murtaza Barrett MD Primary Care Provider Kathy delatorre Encounter Details Date Type Department Care Team (Latest Contact Info) Description 05/02/2015 Abstract [facility] Social History Tobacco Use Types Packs/Day Years Used Date Smoking Tobacco: Never Assessed Comments Unknown Sex and Gender Information Value Date Recorded Sex Assigned at Not on file Legal Sex Female 9:13 PM CDT Gender Identity Not on file Sexual Orientation Not on file documented as of this encounter Progress Notes * Generic Conversion MD Milton - 05/02/2015 1:07 PM CST Message Recorded as Task Date: 05/02/2015 11:34 AM, Created By: Whitney Yanes Task Name: Medical Complaint Callback Assigned To: [facility] [place] [place] [place] Arnold Regarding Patient: Lynn Gonzalez, Status: Active Comment: Whitney Yanes - 02 May 2015 11:34 AM TASK CREATED Caller: Self; Medical Complaint; ; pt states that she rec'd an antibiotic on the 04/23, states that she still has the following symptoms: runny nose, cough with mucus, short of breath, congestion Murtaza Miranda - 02 May 2015 12:10 PM TASK REASSIGNED: Previously Assigned To Murtaza Barrett (Hx Zpack) Augmentin 875mg bid x 10 days prednisone 40mg x 3 days David Smith - 02 May 2015 1:07 PM TASK EDITED pt informed and voiced understanding scripts sent via EHR Signatures Electronically signed by : David Smith MA; May 02 2015 1:07PM EMBROIDERY CUTTER (Author) documented in this encounter Plan of Treatment Not on file documented as of this encounter Visit Diagnoses Not on filedocumented in this encounter Care Teams Paper Bag Machine Operator Relationship Specialty Start Date End Date Murtaza Barrett MD PCP - General 08/19/16 documented as of this encounter
--- OUTSIDE RECORDS SUMMARY | 2024-04-22 02:46 | XMS_ITS | Encounter Summary ---
Author Organization [facility] Address [address] [place] [address]. [place], [place] [address] [place] [address] Care Team Providers Care Janitorial Services Supervisor Name Role Phone Murtaza Barrett MD Primary Care Provider Kathy delatorre Encounter Details Date Type Department Care Team (Latest Contact Info) Description 11/20/2016 Abstract [facility] Social History Tobacco Use Types Packs/Day Years Used Date Smoking Tobacco: Never Assessed Comments Unknown Sex and Gender Information Value Date Recorded Sex Assigned at Not on file Legal Sex Female 9:13 PM CDT Gender Identity Not on file Sexual Orientation Not on file documented as of this encounter Progress Notes * Generic Conversion MD Milton - 11/20/2016 1:18 PM CDT Message Recorded as Task Date: 11/20/2016 08:44 AM, Created By: Ruth Alicia Task Name: Renew Medication Assigned To: [facility] [place] [place] Team Arnold Regarding Patient: Lynn Gonzalez, Status: Active Comment: Ruth Alicia - 20 Nov 2016 8:44 AM TASK CREATED Caller: Self; Renew Medication; ; asking for alprazolam 1mg renewal to ana paula Hernandez pt informed to call pharm next time Message: Called in -do Plan 1. ALPRAZolam 1 MG Oral Tablet; TAKE 1 TABLET TWICE DAILY Rx By: Murtaza Barrett; Dispense: 30 Days ; #:60 Tablet; Refill: 0; For: Depression, Headache, Hypertension; ELIE = N; Call Rx; Last Updated By: Melani Mejia; 09/15/2016 3:19:37 PM Signatures Electronically signed by : Melani Mejia R.N.; Nov 20 2016 1:19PM COIL SHAPER (Author) documented in this encounter Plan of Treatment Not on file documented as of this encounter Visit Diagnoses Not on filedocumented in this encounter Care Teams Janitorial Services Supervisor Relationship Specialty Start Date End Date Murtaza Barrett MD PCP - General 08/19/16 documented as of this encounter
--- OUTSIDE RECORDS SUMMARY | 2024-04-22 02:46 | XMS_ITS | Encounter Summary ---
Author Organization [facility] Address [facility] [place]. [place], [place] [address] [place] [address] Care Team Providers Care Soft Shoe Dancer Name Role Phone Murtaza Barrett MD Primary Care Provider Kathy delatorre Encounter Details Date Type Department Care Team (Late st Contact Info) Description 10/02/2013 Abstract [facility] Family & Internal Medicine [address] [phone] Murtaza Barrett MD Social History Tobacco Use [...] Sign Reading Time Taken Comments Blood Pressure 120/79 10/02/2013 9:34 AM CDT Pulse 76 10/02/2013 9:34 AM CDT Temperature - - Respiratory Rate - - Oxygen Saturation - - Inhaled Oxygen Concentration - - Weight 133.8 kg (295 lb) 10/02/2013 9:34 AM CDT Height - - Body Mass Index 49.09 09/04/2013 12:58 PM CDT documented in this encounter Progress Notes * Murtaza Barrett MD - 10/02/2013 9:30 AM CDT Reason For Visit Acute Follow-Up Visit Chief Complaint one month follow up on HTN, doing well on Losartan. History of Present Illness Here for followup of several medical conditions. She has been taking her blood pressure medicine without any problems. She denies any new headaches chest pain or swelling in her legs. She continues taking the citalopram 20 mg daily. This is also not causing any problems as far she knows that it is also not helpful for her moods. She continues sad with some crying spells. She reports her neck is doing much better and she is not needing to take any of her muscle relaxants, either minor other one she received from the emergency room. Review of Systems See HPI for pertinent positives. Constitutional: no fever, not feeling poorly and no chills. Cardiovascular: no chest pain, no palpitations and no lower extremity edema. Respiratory: no shortness of breath and no cough. Gastrointestinal: no abdominal pain. Neurological: no confusion, no dizziness and no fainting. Active Problems 1. Depression (311) (F32.9) 2. Epidermal inclusion cyst (706.2) (L72.0) 3. Hypertension (401.9) (I10) 4. Neck pain (723.1) (M54.2) Past Medical History 1. History of hypertension [...] 1. Citalopram Hydrobromide 20 MG Oral Tablet; One daily; Therapy: [id number] to (Last Rx:04Sep2013) Requested for: [id number] Ordered 2. Losartan Potassium 50 MG Oral Tablet; TAKE ONE TABLET BY MOUTH EVERY DAY; Therapy: [id number] to (Evaluate:03Dec2013) Requested for: [id number]; Last Rx:04Sep2013 Ordered Allergies 1. No Known Drug Allergies Vitals Recorded by : Magda Bermudez at 02Oct2013 09:34AM Heart Rate 76 Respiration 18 Systolic 120 Diastolic 79 O2 Saturation 98 Weight 295 lb BMI Calculated 49.09 BSA Calculated 2.33 Physical Exam Constitutional General appearance: No acute distress, well appearing and well nourished. Comfortable and obese. Pulmonary Respiratory effort: No increased work of breathing or signs of respiratory distress. Auscultation of lungs: Clear to auscultation. Cardiovascular Auscultation of heart: Normal rate and rhythm, normal S1 and S2, without murmurs. Examination of extremities for edema and/or varicosities: Normal. Lymphatic Palpation of lymph nodes in neck: No lymphadenopathy. Musculoskeletal Gait and station: Normal. Digits and nails: Normal without clubbing or cyanosis. Inspection/palpation of joints, bones, and muscles: Normal. Neck has full range of motion without any palpated tenderness. Psychiatric Orientation to person, place, and time: Normal. Mood and affect: Normal. Assessment 1. Hypertension (401.9) (I10) 2. Depression (311) (F32.9) 3. Neck pain (723.1) (M54.2) Plan 1. Changed: From Citalopram Hydrobromide 20 MG Oral Tablet One daily To Citalopram Hydrobromide 40 MG Oral Tablet TAKE ONE TABLET EVERY DAY Rx By: Murtaza Barrett; Dispense: 30 Days ; #:30 Tablet; Refill: 1; For: Depression; ELIE = N; Sent To: [facility] [id number] 2. Renew: Losartan Potassium 50 MG Oral Tablet; TAKE ONE TABLET BY MOUTH EVERY DAY Rx By: Murtaza Barrett; Dispense: 30 Days ; #:30 Tablet; Refill: 2; For: Hypertension; ELIE = N; Sent To: [facility] [id number] 3. We recommend that you bring your body mass index down to 26. Status: Complete Done: 02Oct2013 ; Last Updated By: Magda Bermudez; 10/02/2013 9:36:53 AM; Ordered; For: Hypertension; Ordered By:Murtaza Barrett 4. We recommend that you change your eating habits slowly. Status: Complete Done: 02Oct2013 ; Last Updated By: Magda Bermudez; 10/02/2013 9:36:53 AM; Ordered; For: Hypertension; Ordered By:Murtaza Barrett She will continue her current blood pressure medicine. We will be increasing her citalopram 40 mg aday. She will be calling us in 3 or 4 weeks with an update. She will not be requiring any further therapy for her neck. Signatures Electronically signed by : Murtaza Barrett M.D.; Oct 02 2013 9:58AM STAGE ELECTRICIAN HELPER (Author) documented in this encounter Plan of Treatment Not on file documented as of this encounter Visit Diagnoses Not on filedocumented in this encounter Care Teams Soft Shoe Dancer Relationship Specialty Start Date End Date Murtaza Barrett MD PCP - General 08/19/16 documented as of this encounter
--- OUTSIDE RECORDS SUMMARY | 2024-04-22 02:46 | XMS_ITS | Encounter Summary ---
Author Organization [facility] Address [address] [place] [address]. [place], [place] [address] [place] [address] Care Team Providers Care Radiation Control Specialist Name Role Phone Murtaza Barrett MD Primary Care Provider Kathy delatorre Encounter Details Date Type Department Care Team (Latest Contact Info) Description 10/21/2015 Abstract [facility] Social History Tobacco Use Types Packs/Day Years Used Date Smoking Tobacco: Never Assessed Comments Unknown Sex and Gender Information Value Date Recorded Sex Assigned at Not on file Legal Sex Female 9:13 PM CDT Gender Identity Not on file Sexual Orientation Not on file documented as of this encounter Progress Notes * Generic Conversion MD Milton - 10/21/2015 12:28 PM CDT Message Recorded as Task Date: 10/21/2015 09:02 AM, Created By: Melani Mejia Task Name: Medical Complaint Callback Assigned To: [facility] [place] Team Arnold Regarding Patient: Lynn Gonzalez, Status: Active Comment: Melani Mejia - 21 Oct 2015 9:02 AM TASK CREATED SInus pain, pressure, cough, sinus drainage x 7 days. Tried OTC with no relief. nkangelina [employer] Box christianne #[phone] Murtaza Barrett - 21 Oct 2015 11:51 AM TASK REASSIGNED: Previously Assigned To Murtaza Barrett Message: Rx to pharm, pt updated by phone-do Plan 1. Azithromycin 250 MG Oral Tablet; TAKE 2 TABLETS ON DAY 1 THEN TAKE 1 TABLET A DAY FOR 4 DAYS Rx By: Murtaza Barrett; Dispense: 0 Days ; #:6 Tablet; Refill: 0; For: Upper respiratory infection; ELIE = N; Sent To: [facility] # [id number]; Last Updated By: Melani Mejia; 10/21/2015 12:29:31 PM Signatures Electronically signed by : Melani Mejia R.N.; Oct 21 2015 12:29PM COLOR BLENDER (Author) documented in this encounter Plan of Treatment Not on file documented as of this encounter Visit Diagnoses Not on filedocumented in this encounter Care Teams Radiation Control Specialist Relationship Specialty Start Date End Date Murtaza Barrett MD PCP - General 08/19/16 documented as of this encounter
--- OUTSIDE RECORDS SUMMARY | 2024-04-22 02:46 | XMS_ITS | Encounter Summary ---
Author Organization [facility] Address [address] [place] [address]. [place], [place] [address] [place] [address] Care Team Providers Care Music Therapy Specialist Name Role Phone Murtaza Barrett MD Primary Care Provider Kathy delatorre Encounter Details Date Type Department Care Team (Latest Contact Info) Description 10/22/2016 Abstract [facility] Medical Group Social History Tobacco Use Types Packs/Day Years Used Date Smoking Tobacco: Never Assessed Comments Unknown Sex and Gender Information Value Date Recorded Sex Assigned at Not on file Legal Sex Female 9:13 PM CDT Gender Identity Not on file Sexual Orientation Not on file documented as of this encounter Progress Notes * Generic Conversion MD Milton - 10/22/2016 4:57 PM CDT Message Recorded as Task Date: 10/20/2016 06:57 AM, Created By: System Task Name: [facility] Rx Renewal Assigned To: [facility] [place] [place] Arnold Regarding Patient: Lynn Gonzalez, Status: In Progress Comment: System - 20 Oct 2016 6:57 AM Rx Renewal request from patient using [email or web address]. Nuzhat Correa - 20 Oct 2016 7:34 AM TASK REASSIGNED: Previously Assigned To Murtaza Barrett ok to refill prednisone ? Murtaza Barrett - 20 Oct 2016 7:38 AM TASK REASSIGNED: Previously Assigned To Murtaza Barrett prednisone 40 mg daily x5 days She should probably followup in the office to discuss other therapies as it seems like she is usinga lot of oral prednisone. Nuzhat Correa 20 Oct 2016 1:13 PM TASK IN PROGRESS Nuzhat Correa 20 Oct 2016 1:13 PM TASK EDITED [id number] rx sent to pharmacy Message: trang Signatures Electronically signed by : Melani Mejia R.N.; Oct 22 2016 4:58PM ASSEMBLER DC FIELD RING (Author) documented in this encounter Plan of Treatment Not on file documented as of this encounter Visit Diagnoses Not on filedocumented in this encounter Care Teams Music Therapy Specialist Relationship Specialty Start Date End Date Murtaza Barrett MD PCP - General 08/19/16 documented as of this encounter
--- OUTSIDE RECORDS SUMMARY | 2024-04-22 02:46 | XMS_ITS | Encounter Summary ---
Author Organization [facility] Address [address] [place] [address]. [place], [place] [id number] [place] [address] Care Team Providers Care Quality Control Scientist Name Role Phone Murtaza Barrett MD Primary Care Provider Kathy delatorre Encounter Details Date Type Department Care Team (Late st Contact Info) Description 04/24/2014 Abstract [facility] Family & Internal Medicine - [address] [phone] Murtaza Barrett MD Social History Tobacco Use [...] Sign Reading Time Taken Comments Blood Pressure 150/90 04/24/2014 2:20 PM INDUSTRIAL MANUFACTURING TECHNICIAN Pulse 88 04/24/2014 2:20 PM INDUSTRIAL MANUFACTURING TECHNICIAN Temperature - - Respiratory Rate - - Oxygen Saturation - - Inhaled Oxygen Concentration - - Weight 149.2 kg (329 lb) 04/24/2014 2:20 PM INDUSTRIAL MANUFACTURING TECHNICIAN Height 165.1 cm (5' 5 ) 04/24/2014 2:20 PM INDUSTRIAL MANUFACTURING TECHNICIAN Body Mass Index 54.75 04/24/2014 2:20 PM INDUSTRIAL MANUFACTURING TECHNICIAN documented in this encounter Progress Notes * Murtaza Barrett MD - 04/24/2014 2:30 PM CST Reason For Visit Reason For Visit: Acute Visit Chief Complaint Chief Complaint Free Text: C/o productive cough and SOB x 2 days. C/o burnt right hand at work while cleaning the oven on Wednesday and went to [facility]. History of Present Illness HPI Free Text: Here complaining of a productive cough shortness of breath is worsening over the last 2 days. Slsv-htc-nlkzzhd medicines are not helping. She has a history of needing both inhalers and prednisone when respiratory infections a pad. She also incidentally burned herself at work a few days ago without injury being treated at the emergency room. She reports she is doing well. Review of Systems Focused-Female: See HPI for pertinent positives. Constitutional: feeling tired, but no fever and no chills. ENT: sore throat and nasal discharge. Cardiovascular: no chest pain. Respiratory: cough and wheezing. Active Problems 1. Depression (311) (F32.9) 2. [...] 20 MG Oral Tablet; One daily; Therapy: 05Mar2014 to (Last Rx:05Mar2014) Requested for: 05Mar2014 Ordered 2. Losartan Potassium 50 MG Oral Tablet; TAKE ONE TABLET BY MOUTH EVERY DAY; Therapy: 05Mar2014 to (Evaluate:[id number]) Requested for: 05Mar2014; Last Rx:05Mar2014 Ordered 3. SUMAtriptan Succinate 100 MG Oral Tablet (Imitrex); TAKE ONE TABLET AT ONSET AND MAY REPEAT IN 2 HOURS--MAXIMUM OF 2 TABLETS IN 24 HOURS; Therapy: 05Mar2014 to (Last Rx:05Mar2014) Requested for: 05Mar2014 Ordered Allergies 1. No Known Drug Allergies Vitals Vital Signs [Data Includes: Current Encounter] Recorded by : Luzma Alvarez at [id number] 02:20PM Temperature 97 F Heart Rate 88 Respiration 20 Systolic 150 Diastolic 90 O2 Saturation 100 Height 5 ft 5 in Weight 329 lb BMI Calculated 54.75 BSA Calculated 2.44 Physical Exam Constitutional General appearance: No acute distress, well appearing and well nourished. Ears, Nose, Mouth, and Throat External inspection of ears and nose: Normal. Otoscopic examination: Tympanic membranes translucent with normal light reflex. Canals patent without erythema. Oropharynx: Normal with no erythema, edema, exudate or lesions. Pulmonary Respiratory effort: No increased work of breathing or signs of respiratory distress. Auscultation of lungs: Abnormal. Occasional faint expiratory wheeze. Lymphatic Palpation of lymph nodes in neck: No lymphadenopathy. Musculoskeletal Gait and station: Normal. Skin Examination of the skin for lesions: Abnormal. There is a healing second-degree burn on the [place] base of her right thumb. Assessment 1. Sinusitis (473.9) (J32.9) 2. Bronchitis (490) (J40) Plan 1. Start: Benzonatate 200 MG Oral Capsule; TAKE ONE CAPSULE BY MOUTH THREE TIMES A DAY NEEDED FOR COUGH Rx By: Murtaza Barrett; Dispense: 0 Days ; #:25 Capsule; Refill: 0; For: Bronchitis; ELIE = N; Verified Transmission to Setup [id number]; Last Updated By: Shelly Nathan; 04/24/2014 2:44:19 PM 2. Start: ProAir HFA 108 (90 Base) MCG/ACT Inhalation Aerosol Solution; INHALE TWO PUFFS BY MOUTH EVERY 4-6 HOURS NEEDED Rx By: Murtaza Barrett; Dispense: 17 Days ; #:8.5 GM; Refill: 1; For: Bronchitis; ELIE = N; VerifiedTransmission to [facility]; Last Updated By: Buy With Fetch; 04/24/2014 2:44:19PM 3. Start: Cephalexin 500 MG Oral Capsule; TAKE 1 CAPSULE 3 TIMES DAILY Rx By: Murtaza Barrett; Dispense: 10 Days ; #:30 Capsule; Refill: 0; For: Bronchitis, Sinusitis; ELIE = N; Verified Transmission to [facility]; Last Updated By: Buy With Fetch; 04/24/2014 2:44:20 PM Signatures Electronically signed by : Murtaza Barrett M.D.; Apr 26 2014 8:43AM INDUSTRIAL MANUFACTURING TECHNICIAN (Author) documented in this encounter Plan of Treatment Not on file documented as of this encounter Visit Diagnoses Not on filedocumented in this encounter Care Teams Quality Control Scientist Relationship Specialty Start Date End Date Murtaza Barrett MD PCP - General 08/19/16 documented as of this encounter
--- OUTSIDE RECORDS SUMMARY | 2024-04-22 02:46 | XMS_ITS | Encounter Summary ---
Author Organization [facility] Address [address] [place] [address]. [place], [place] [id number] [place] [address] Care Team Providers Care Program Review Director Name Role Phone Murtaza Barrett MD Primary Care Provider Kathy delatorre Encounter Details Date Type Department Care Team (Late st Contact Info) Description 08/19/2016 Abstract [facility] Family & Internal Medicine - [address] [phone] Murtaza Barrett MD Social History Tobacco Use [...] Sign Reading Time Taken Comments Blood Pressure 143/84 08/19/2016 9:29 AM CDT Pulse 81 08/19/2016 9:29 AM CDT Temperature - - Respiratory Rate - - Oxygen Saturation - - Inhaled Oxygen Concentration - - Weight 142.4 kg (314 lb) 08/19/2016 9:29 AM CDT Height 165.1 cm (5' 5 ) 08/19/2016 9:29 AM CDT Body Mass Index 52.25 08/19/2016 9:29 AM CDT documented in this encounter Progress Notes * Murtaza Barrett MD - 08/19/2016 9:30 AM CDT Reason For Visit Chronic Recheck Visit Chief Complaint Patient is here for follow up on depression and HTN. History of Present Illness REALM SF: Date: 08/19/2016 Examiner: Nuzhat Stuart Completed: 12 Reading Level: 12+ Can Pronounce: Menopause, Antibiotics, Exercise, Jaundice, Rectal, Anemia, Behavior Unable to Pronounce: PHQ-9 Depression Questionnaire: Over the past 2 weeks, how often have you been bothered by the following problems? 1.) Little interest or pleasure in doing things? Several days. 2.) Feeling down, depressed or hopeless? Several days. 3.) Trouble falling asleep or sleeping too much? Nearly every day. 4.) Feeling tired or having little energy? Nearly every day. 5.) Poor appetite or overeating? Several days. 6.) Feeling bad about yourself, or that you are a failure, or have let yourself or your family down? Not at all. 7.) Trouble concentrating on things, such as reading a newspaper or watching television? Nearly every day. 8.) Moving or speaking so slowly that other people could have noticed, or the opposite, moving or speaking faster than usual? Not at all. 9.) Thoughts that you would be off or of hurting yourself in some way? Not at all. TOTAL SCORE: 12. HPI Free Text: Here for followup on her chronic medical conditions. She reports she has been feeling a little shaky lately. States she wakes up at night and would find herself catching her breath and feel panicky. She has not taken any other anxiety medicine in the past aside from citalopram. This has been happening about 3 times a week in the last 2 months at least. She also reports that she has been having welts which comes and goes, and she has been taking Benadryl for 3 weeks for that. She denies having any other allergy symptoms recently. She is taking Tylenol for her headache which has not been beneficial. She continues taking her blood pressure medicine. Of note, her blood pressure today is within the upper limits of normal. Review of Systems See HPI for pertinent positives. Active Problems 1. Depression (311) (F32.9) 2. Headache (784.0) (R51) 3. Hypertension (401.9) (I10) Past Medical History 1. History of hypertension [...] Citalopram Hydrobromide 20 MG Oral Tablet; TAKE 1 TABLET BY MOUTH EVERY DAY; Therapy: 05Mar2014 to (Evaluate:23Oct2015) Requested for: 25Jul2015; Last Rx:25Jul2015 Ordered 2. Losartan Potassium 100 MG Oral Tablet; TAKE 1 TABLET BY MOUTH DAILY; Therapy: 05Mar2014 to (Evaluate:25May2016) Requested for: [id number]; Last Rx:[id number] Ordered 3. ProAir HFA 108 (90 Base) MCG/ACT Inhalation Aerosol Solution; INHALE TWO PUFFS BY MOUTH EVERY 4 HOURS; Therapy: [id number] to (Evaluate:12Jul2014) Requested for: [id number]; Last Rx:[id number] Ordered 4. SUMAtriptan Succinate 100 MG Oral Tablet; TAKE ONE TABLET AT ONSET AND MAY REPEAT IN 2 HOURS--MAXIMUM OF 2 TABLETS IN 24 HOURS; Therapy: 05Mar2014 to (Last Rx:05Mar2014) Requested for: 05Mar2014 Ordered Allergies 1. No Known Drug Allergies Vitals Recorded: 19Aug2016 09:29AM Heart Rate 81 Respiration 16 Systolic 143 Diastolic 84 O2 Saturation 96 Height 5 ft 5 in Weight 314 lb BMI Calculated 52.25 BSA Calculated 2.4 Physical Exam Constitutional General appearance: No acute [...] and nails: Normal without clubbing or cyanosis. Psychiatric Orientation to person, place, and time: Normal. Mood and affect: Normal. Mood and Affect: anxious. Results/Data *LIPID/Glucose [facility] In Office 19Aug2016 10:52AM Murtaza Barrett Test Name Result Flag Reference Total Cholesterol 160 < 200 mg/dL HDL 40 40 - 60 mg/dL Triglycerides 88 < 150 mg/dL LDL 102 0 - 130 mg/dL Non-HDL 120 T. Chol/HDL Ratio 4.0 < or =?? 4.5 Glucose 90 Normal < 100 mg/dL *Urine dip auto In Office 19Aug2016 10:52AM Murtaza Barrett Test Name Result Flag Reference Color Yellow Clarity Slightly cloudy Glucose Negative Bilirubin Negative Ketones Negative Specific [employer] 1.015 Blood Negative pH 8.5 5.0 - 7.0 Protein 30 mg/dL-1+ A Urobilinogen 0.2 E.U./dL Nitrites neg Leukocytes Negative Assessment 1. Hypertension (401.9) (I10) 2. Headache (784.0) (R51) 3. Depression with anxiety (300.4) (F41.8) 4. Urticaria (708.9) (L50.9) Plan Depression with anxiety, Headache, Hypertension, Urticaria 1. *LIPID/Glucose [facility]ech In Office; Status:Resulted - Requires Verification; Done: 19Aug2016 10:52AM Performed:In Office; Last Updated By:Sugar Valadez; 08/19/2016 10:53:25 AM;Ordered; For:Depression with anxiety, Headache, Hypertension, Urticaria; Ordered By:Murtaza Barrett; 2. *Urine dip auto In Office; Status:Resulted - Requires Verification; Done: 19Aug2016 10:52AM Performed:In Office; Last Updated By:Sugar Valadez; 08/19/2016 10:53:25 AM;Ordered; For:Depression with anxiety, Headache, Hypertension, Urticaria; Ordered By:Murtaza Barrett; Depression, Headache, Hypertension 3. ALPRAZolam 0.25 MG Oral Tablet; TAKE 1 TO 2 TABLETS BY MOUTH UP TO 3 TIMES DAILY Rx By: Murtaza Barrett; Dispense: 30 Days ; #:30 Tablet; Refill: 0; For: Depression, Headache, Hypertension; ELIE = N; Print Rx 4. FLUoxetine HCl - 20 MG Oral Tablet; TAKE 1 TABLET BY MOUTH DAILY Rx By: Murtaza Barrett; Dispense: 30 Days ; #:30 Tablet; Refill: 0; For: Depression, Headache, Hypertension; ELIE = N; Verified Transmission to [facility] # [id number]; Last Updated By: [email or web address]; 08/19/2016 9:56:22 AM 5. PredniSONE 20 MG Oral Tablet; TAKE 2 TABLET DAILY IN THE MORNING for 4 days THEN 1 TAB X 3DAYS Rx By: Murtaza Barrett; Dispense: 0 Days ; #:11 Tablet; Refill: 0; For: Depression, Headache, Hypertension; ELIE = N; Verified Transmission to [facility] # [id number]; Last Updated By: [email or web address]; 08/19/2016 9:56:22 AM 6. CBC W Differential; Status:In Progress - Specimen/Data Collected; Done: 19Aug2016 [facility]; Due:18Sep2016; Last Updated By:Sugar Valadez; 08/19/2016 10:19:42 AM;Ordered; For:Depression, Headache, Hypertension; Ordered By:Murtaza Barrett; 7. Compr Metabolic Prof ( CMP ); Status:In Progress - Specimen/Data Collected; Done: 19Aug2016 [facility]; Due:18Sep2016; Last Updated By:Sugar Valadez; 08/19/2016 10:19:42 AM;Ordered; For:Depression, Headache, Hypertension; Ordered By:Murtaza Barrett; 8. TSH W Reflex Free T4; Status:In Progress - Specimen/Data Collected; Done: 19Aug2016 [facility]; Due:18Sep2016; Last Updated By:Sugar Valadez; 08/19/2016 10:19:42 AM;Ordered; For:Depression, Headache, Hypertension; Ordered By:Murtaza Barrett; 9. Uric Acid; Status:In Progress - Specimen/Data Collected; Done: 19Aug2016 [facility]; Due:18Sep2016; Last Updated By:Sugar Valadez; 08/19/2016 10:19:42 AM;Ordered; For:Depression, Headache, Hypertension; Ordered By:Murtaza Barrett; 10. Vitamin D 25 - Hydroxy; Status:In Progress - Specimen/Data Collected; Done: 19Aug2016 [facility]form[facility]; Due:18Sep2016; Last Updated By:Sugar Valadez; 08/19/2016 10:19:42 AM;Ordered; For:Depression, Headache, Hypertension; Ordered By:Murtaza Barrett; 11. Follow-up visit in 3 weeks Outpatient Follow-up Status: Complete Done: 19Aug2016 Ordered; For: Depression, Headache, Hypertension; Ordered By: Murtaza Barrett Performed: Due: 02Sep2016; Last Updated By: Ruth Alicia; 08/19/2016 10:00:37 AM Headache 12. SUMAtriptan Succinate 100 MG Oral Tablet (Imitrex); TAKE ONE TABLET AT ONSET AND MAY REPEAT IN 2 HOURS--MAXIMUM OF 2 TABLETS IN 24 HOURS Rx By: Murtaza Barrett; Dispense: 0 Days ; #:9 Tablet; Refill: 0; For: Headache; ELIE = N; [facility]mission to [facility] # [id number]; Last Updated By: Shelly Nathan; 08/19/2016 9:56:23 AM Signatures Electronically signed by : Murtaza Barrett M.D.; Aug 24 2016 10:46AM PART TIME RECEPTIONIST (Author) documented in this encounter Plan of Treatment Not on file documented as of this encounter Procedures Procedure Name Priority Date/Time Associated Diagnosis Comments CHOLESTECH W GLUCOSE Routine 08/19/2016 10:52 AM CDT URINALYSIS AUTO DIP Routine 08/19/2016 1 0:52 AM CDT TSH W/REFLEX Routine 08/19/2016 10:17 AM CDT COMPREHENSIVE METABOLIC PANEL Routine 08/19/2016 10:17 AM CDT CBC W/DIFF AUTOMATED Routine 08/19/2016 10:17 AM CDT VITAMIN D, 25 OH Routine 08/19/2016 10:1 7 AM CDT URIC ACID BLOOD Routine 08/19/2016 10:17 AM CDT documented in this encounter Results * (ABNORMAL) URINALYSIS AUTO DIP (08/19/2016 10:52 AM CDT) COLOR (U) Yellow [facility] T O EPIC CONVERSION TRANSPARENCY Slightly cloudy [facility] TO EPIC CONVERSION GLUCOSE Negative [facility] EPIC CONVERSION BILIRUBIN (U) Negative [facility] UP TO EPIC CONVERSION KETONE (U) Negative [facility] TO EPIC CONVERSION SPECIFIC GRAVITY (U) 1.015 [facility] TO EPIC CONVERSION BLOOD (U) Negative [facility] EPIC CONVERSION PH (U) 8.5 5.0 - 7.0 [facility] T O EPIC CONVERSION PROTEIN (ELP) (U) 30 mg/dL-1+(A) [facility] TO EPIC CONVERSION UROBILINOGEN 0.2 E.U./dL [facility] OUP TO EPIC CONVERSION NITRITES neg [facility] T O EPIC CONVERSION LEUKOCYTES (U) Negative [facility] OUP TO EPIC CONVERSION 08/19/2016 10:5 2 AM CDT 08/19/2016 10:52 AM CDT Narrative [facility] TO EPIC CONVERSION - 08/19/2016 10:52 AM CDT Result Communication: Call patient with results us Murtaza Barrett MD URINE ORDERABLES Final Result [facility] TO EPIC CONVERSION * CHOLESTECH W GLUCOSE (08/19/2016 10:52 AM CDT) CHOLESTEROL 160 < 200 mg/dL [facility] TO EPIC CONVERSION HDL 40 40 - 60 mg/dL [facility] TO [facility]IC CONVERSION TRIGLYCERIDES 88 < 150 mg/dL [facility] TO [facility]IC CONVERSION LDL (CALCULATED) 102 0 - 130 mg/dL [facility] TO EPIC CONVERSION NON HDL CHOLESTEROL 120 [facility] TO [facility]IC CONVERSION CHOL/HDL RATIO 4.0 < or =? ? ? 4.5 [facility] TO EPIC CONVERSION GLUCOSE 90 Normal < 100 mg/dL [facility] TO EPIC CONVERSION 08/19/2016 10:5 2 AM CDT 08/19/2016 10:52 AM CDT Narrative [facility] TO EPIC CONVERSION - 08/19/2016 10:52 AM CDT Result Communication: No patient communication needed at this time Murtaza Barrett MD LABORATORY Final Result Performing Organization Address [facility] de Phone Number [facility] TO EPIC CONVERSION * (ABNORMAL) VITAMIN D, 25 OH (08/19/2016 10:17 AM CDT) Pathologist [facility] VITAMIN D 25 HYDROXY S/P/B 9(L) 30 - 100 NG/ML [facility] TO EPIC CONVERSION Comment: Result Comment: ?? SUPPLEMENTING WITH VITAMIN D2 MAY RESULT IN FALSELY LOW RESULTS, CLINICAL CORRELATION NEEDED. ? INTERPRETATION ? DEFICIENT ??<20 ?INSUFFICIENT 20-30 ?SUFFICIENT 30-100 POTENTIAL INTOXICATION ??>100 ? [place] [id number] 08/19/2016 10:1 7 AM CDT 08/19/2016 10:17 AM CDT Narrative [facility] TO EPIC CONVERSION - 08/20/2016 6:23 PM CDT Result Communication: Call patient with results Murtaza Barrett MD LABORATORY Final Result Performing Organization Address [facility] de Phone Number [facility] TO EPIC CONVERSION * (ABNORMAL) CBC W/DIFF AUTOMATED (08/19/2016 10:17 AM CDT) Pathologist [facility] WBC 7.5 4.8 - 10.8 x10'3/uL [facility] TO EPIC CONVERSION RBC 4.80 4.20 - 5.40 x10'6/uL [facility] TO EPIC CONVERSION HGB 14.5 12.0 - 16.0 G/DL [facility] TO EPIC CONVERSION HCT 43.5 38.0 - 48.0 % [facility] TO EPIC CONVERSION MCV 90.6 81.0 - 99.0 FL [facility] TO EPIC CONVERSION MCH 30.2 27.0 - 31.0 PG [facility] TO EPIC CONVERSION MCHC 33.3 32.0 - 36.0 G/DL [facility] TO EPIC CONVERSION RDW 13.2 11.5 - 14.5 % [facility] TO EPIC CONVERSION PLT 239 130 - 400 x10'3/uL [facility] TO EPIC CONVERSION GLUCOSE 10.2 9.3 - 12.2 FL [facility] TO EPIC CONVERSION BASOPHILS % 0.5 0.0 - 1.0 % [facility] TO EPIC CONVERSION EOSINOPHILS % 3.7(H) 1.0 - 3.0 % [facility] TO EPIC CONVERSION NEUTROPHILS % 56.7 43.0 - 65.0 % [facility] TO EPIC CONVERSION LYMPHOCYTES % 33.8 20.0 - 46.0 % [facility] TO EPIC CONVERSION IMMATURE GRANS % 0.4 0.0 - 1.0 % [facility] TO EPIC CONVERSION MONOCYTES 4.9(L) 5.0 - 12.0 % [facility] TO [facility]IC CONVERSION 08/19/2016 10:1 7 AM CDT 08/19/2016 10:17 AM CDT Narrative [facility] TO [facility]IC CONVERSION - 08/19/2016 8:30 PM CDT Result Communication: No patient communication needed at this time Murtaza Barrett MD LABORATORY Final Result [facility] TO EPIC CONVERSION * TSH W/REFLEX (SNS) (08/19/2016 10:17 AM CDT) TSH 0.93 0.27 - 4.20 mIU/mL [facility] TO EPIC CONVERSION Comment:Result Comment: FREE T4 NOT INDICATED 08/19/2016 10:1 7 AM CDT 08/19/2016 10:17 AM CDT Narrative [facility] TO EPIC CONVERSION - 08/19/2016 8:52 PM CDT Result Communication: No patient communication needed at this time us Murtaza Barrett MD LABORATORY Final Result Performing Organization Address [facility] de Phone Number [facility] TO EPIC CONVERSION * (ABNORMAL) URIC ACID BLOOD (08/19/2016 10:17 AM CDT) URIC ACID 6.3(H) 2.4 - 5.7 mg/dL [facility] TO EPIC CONVERSION Comment: Result Comment: NOTE: Acetaminophen, N Acetyl p benzoquinone imine (NAPQI), N acetylcysteine (NAC), Metamizole, 4 Aminoantipyrine (4 AAP) and 4 Methylamino antipyrine (4 MAP) at high concentrations can cause falsely low results on Lactate, Uric Acid, Cholesterol, Triglyceride, HDL, and Direct LDL. 08/19/2016 10:1 7 AM CDT 08/19/2016 10:17 AM CDT Narrative [facility] TO EPIC CONVERSION - 08/19/2016 8:52 PM CDT Result Communication: No patient communication needed at this time Murtaza Barrett MD LABORATORY Final Result Performing Organization Address [facility] de Phone Number [facility] TO EPIC CONVERSION * (ABNORMAL) COMPREHENSIVE METABOLIC PANEL (08/19/2016 10:17 AM CDT) Pathologist [facility] SODIUM S/P/B 141 136 - 145 mmol/L [facility] TO EPIC CONVERSION POTASSIUM S/P/B 4.5 3.5 - 5.1 mmol/L [facility] TO EPIC CONVERSION CHLORIDE S/P/B 102 98 - 107 mmol/L [facility] TO EPIC CONVERSION CO2 29 22 - 29 mmol/L [facility] TO EPIC CONVERSION ANION GAP 15 8 - 20 [facility] T O EPIC CONVERSION BUN 7(L) 8 - 23 mg/dL [facility] TO EPIC CONVERSION CREATININE S/P/B 0.48(L) 0.60 - 1.10 mg/dL [facility] TO EPIC CONVERSION GFR ESTIMATE >60 >60 mL/min/1 .73m'2 [facility] TO EPIC CONVERSION EGFR AFR. AMER. >60 NOTE: eGFR is not calculated for patients <18 years of age. This is an estimated GFR (CKD EPI) and should not be used for calculating drug doses. >60 mL/min/1 .73m'2 [facility] TO EPIC CONVERSION GLUCOSE 93 70 - 99 mg/dL [facility] TO EPIC CONVERSION CALCIUM S/P/B 8.7 8.6 - 10.2 mg/dL [facility] TO EPIC CONVERSION BILIRUBIN TOTAL S/P/B 0.3 0.2 - 1.2 mg/dL [facility] TO EPIC CONVERSION AST 16 0 - 32 U/L [facility] TO EPIC CONVERSION ALT 21 0 - 33 U/L [facility] TO EPIC CONVERSION ALKALINE PHOSPHATASE S/P/B 48 35 - 104 U/L [facility] TO EPIC CONVERSION TOTAL PROTEIN S/P/B 6.4 6.4 - 8.3 g/dL [facility] TO EPIC CONVERSION ALBUMIN S/P/B 3.9 3.5 - 5.2 g/dL [facility] TO EPIC CONVERSION GLOBULIN 2.5 2.3 - 3.6 g/dL [facility] TO EPIC CONVERSION A/G RATIO 1.6 1.0 - 2.0 [facility] TO [facility]IC CONVERSION 08/19/2016 10:1 7 AM CDT 08/19/2016 10:17 AM CDT Narrative [facility] TO [facility]IC CONVERSION - 08/19/2016 8:52 PM CDT Result Communication: No patient communication needed at this time us Murtaza Barrett MD LABORATORY Final Result [facility] TO EPIC CONVERSION documented in this encounter Visit Diagnoses Not on filedocumented in this encounter Care Teams Program Review Director Relationship Specialty Start Date End Date Murtaza Barrett MD PCP - General 08/19/16 documented as of this encounter
--- OUTSIDE RECORDS SUMMARY | 2024-04-22 02:46 | XMS_ITS | Encounter Summary ---
Author Organization [facility] Address [address] [place] [address]. [place], [place] [id number] [place] [address] Care Team Providers Care Order Picker Name Role Phone Murtaza Barrett MD Primary Care Provider Kathy delatorre Encounter Details Date Type Department Care Team (Latest Contact Info) Description 07/05/2015 Abstract [facility] Social History Tobacco Use Types Packs/Day Years Used Date Smoking Tobacco: Never Assessed Comments Unknown Sex and Gender Information Value Date Recorded Sex Assigned at Not on file Legal Sex Female 9:13 PM CDT Gender Identity Not on file Sexual Orientation Not on file documented as of this encounter Progress Notes * Generic Conversion MD Milton - 07/05/2015 1:42 PM CST Message Recorded as Task Date: 07/05/2015 10:04 AM, Created By: Mckenzie Hussein Task Name: Medical Complaint Callback Ass[place] To: [facility] Regarding Patient: Lynn Gonzalez, Status: In Progress Comment: Mckenzie Hussein - 05 Jul 2015 10:04 AM TASK CREATED Caller: Self; Medical Complaint; ; Patient c/o congestion, cough and ears hurting. Last 5 days, not getting better with OTC. No allergies. [facility] in [place]. Milad Woods - 05 Jul 2015 11:18 AM TASK REASSIGNED: Previously Assigned To iMlad Woods Natalie - 05 Jul 2015 1:41 PM TASK IN PROGRESS Message: PT NOTIFIED, RX SENT--NK Plan 1. Azithromycin 250 MG Oral Tablet; TAKE 2 TABLETS ON DAY 1 THEN TAKE 1 TABLET A DAY FOR 4 DAYS Rx By: Milad Woods; Dispense: 0 Days ; #:6 Tablet; Refill: 0; For: Upper respiratory infection;ELIE = N; Sent To: [facility] # [id number]; Last Updated By: Luzma Alvarez; 07/05/2015 1:42:51 PM Signatures Electronically signed by : Luzma Alvarez MA; Jul 05 2015 1:42PM POWERHOUSE OILER (Author) documented in this encounter Plan of Treatment Not on file documented as of this encounter Visit Diagnoses Not on filedocumented in this encounter Care Teams Order Picker Relationship Specialty Start Date End Date Murtaza Barrett MD PCP - General 08/19/16 documented as of this encounter
--- OUTSIDE RECORDS SUMMARY | 2024-04-22 02:46 | XMS_ITS | Encounter Summary ---
Author Organization [facility] Address [address] [place] [address]. [place], [place] [id number] [place] [address] Care Team Providers Care Car Inspector Name Role Phone Murtaza Barrett MD Primary Care Provider Kathy delatorre Encounter Details Date Type Department Care Team (Latest Contact Info) Description 04/22/2014 Abstract [facility] Social History Tobacco Use Types [...] on filedocumented in this encounter Care Teams Car Inspector Relationship Specialty Start Date End Date Murtaza Barrett MD PCP - General 08/19/16 documented as of this encounter
--- OUTSIDE RECORDS SUMMARY | 2024-04-22 02:46 | XMS_ITS | Encounter Summary ---
Author Organization [facility] Address [address] [place] [address]. [place] [address] [place] [address] Care Team Providers Care Coding Compliance Auditor Name Role Phone Murtaza Barrett MD Primary Care Provider Kathy delatorre Encounter Details Date Type Department Care Team (Late st Contact Info) Description 08/19/2016 Abstract [facility] [place] [address] Murtaza Barrett MD Social History Tobacco Use [...] Procedure Name Priority Date/Time Associated Diagnosis Comments TSH W/REFLEX Routine 08/19/2016 10:17 AM CDT COMPREHENSIVE METABOLIC PANEL Routine 08/19/2016 10:17 AM CDT CBC W/DIFF AUTOMATED Routine 08/19/2016 10:17 AM CDT VITAMIN D, 25 OH Routine 08/19/2016 10:1 7 AM CDT URIC ACID BLOOD Routine 08/19/2016 10:17 AM CDT documented in this encounter Results * (ABNORMAL) VITAMIN D, 25 OH (08/19/2016 10:17 AM CDT) VITAMIN D 25 HYDROXY S/P/B 9(L) 30 - 100 NG/ML 08/20/2016 6:23 PM CDT [facility] Comment: SUPPLEMENTING WITH VITAMIN D2 MAY RESULT IN FALSELY LOW RESULTS, CLINICAL CORRELATION NEEDED. ? INTERPRETATION ? DEFICIENT ??<20 ?INSUFFICIENT 20-30 ?SUFFICIENT 30-100 POTENTIAL INTOXICATION ??>100 [place] [address] 08/19/2016 10:1 7 AM CDT 08/19/2016 7:19 PM CDT us Generic Conversion Md [facility] Final R esult Performing Organization Address [facility]/ZIP Co de Phone Number [facility] [address] [place] [address], [place] [phone] * (ABNORMAL) URIC ACID BLOOD (08/19/2016 10:17 AM CDT) URIC ACID 6.3(H) 2.4 - 5.7 mg/dL 08/19/2016 8:52 PM CDT [facility] Comment: NOTE: Acetaminophen, N Acetyl p benzoquinone imine (NAPQI), N acetylcysteine (NAC), Metamizole, 4 Aminoantipyrine (4 AAP) and 4 Methylamino antipyrine (4 MAP) at high concentrations can cause falsely low results on Lactate, Uric Acid, Cholesterol, Triglyceride, HDL, and Direct LDL. SERUM OR PLASMA SPECIMEN / Unknown 08/19/2016 10:17 AM CDT 08/19/2016 7:19 PM CDT us Generic Conversion Md [facility] Final R esult Performing Organization Address City/[facility]/ZIP Co de Phone Number [facility] [address] [place] [address], [place] [phone] * TSH W/REFLEX (SNS) (08/19/2016 10:17 AM CDT) TSH 0.93 0.27 - 4.20 mIU/mL 08/19/2016 8:52 PM CDT [facility] Comment:FREE T4 NOT INDICATE D SERUM OR PLASMA SPECIMEN / Unknown 08/19/2016 10:17 AM CDT 08/19/2016 7:19 PM CDT us Generic Conversion Md [facility] Final R esult [facility] [address] [place] [id number], * (ABNORMAL) COMPREHENSIVE METABOLIC PANEL (08/19/2016 10:17 AM CDT) GLUCOSE 93 70 - 99 mg/dL 08/19/2016 8:52 PM CDT [facility] BUN 7(L) 8 - 23 mg/dL 08/19/2016 8:52 PM CDT [facility] CREATININE S/P/B 0.48(L) 0.60 - 1.10 mg/dL 08/19/2016 8:52 PM CDT [facility] SODIUM S/P/B 141 136 - 145 mmol/L 08/19/2016 8:52 PM CDT [facility] POTASSIUM S/P/B 4.5 3.5 - 5.1 mmol/L 08/19/2016 8:52 PM CDT [facility] CHLORIDE S/P/B 102 98 - 107 mmol/L 08/19/2016 8:52 PM CDT [facility] CO2 29 22 - 29 mmol/L 08/19/2016 8:52 PM CDT [facility] BILIRUBIN TOTAL S/P/B 0.3 0.2 - 1.2 mg/dL 08/19/2016 8:52 PM CDT [facility] CALCIUM S/P/B 8.7 8.6 - 10.2 mg/dL 08/19/2016 8:52 PM CDT [facility] ALKALINE PHOSPHATASE S/P/B 48 35 - 104 U/L 08/19/2016 8:52 PM CDT [facility] AST 16 0 - 32 U/L 08/19/2016 8:52 PM CDT [facility] TOTAL PROTEIN S/P/B 6.4 6.4 - 8.3 g/dL 08/19/2016 8:52 PM CDT [facility] ALBUMIN S/P/B 3.9 3.5 - 5.2 g/dL 08/19/2016 8:52 PM CDT [facility] ALT 21 0 - 33 U/L 08/19/2016 8:52 PM CDT [facility] GLOBULIN 2.5 2.3 - 3.6 g/dL 08/19/2016 8:52 PM CDT [facility] A/G RATIO 1.6 1.0 - 2.0 08/19/2016 8:52 PM T [facility] ANION GAP 15 8 - 20 08/19/2016 8:52 PM CDT [facility] EGFR NON-AFR. AMER. >60 >60 mL/min/1.7 [facility]2 08/19/2016 8:52 PM T [facility] EGFR AFR. AMER. >60 >60 mL/min/1.7 [facility] 08/19/2016 8:52 PM T [facility] Comment: NOTE: eGFR is not calculated for patients <18 years of age. This is an estimated GFR (CKD EPI) and should not be used for calculating drug doses. 08/19/2016 10:1 7 AM CDT 08/19/2016 7:19 PM CDT us Generic Conversion [facility] Final R esult [facility] [address] [place] [address], * (ABNORMAL) CBC W/DIFF AUTOMATED (08/19/2016 10:17 AM CDT) WBC 7.5 4.8 - 10.8 x10'3/uL 08/19/2016 8:30 PM CDT [facility] RBC 4.80 4.20 - 5.40 x10'6/uL 08/19/2016 8:30 PM CDT [facility] HGB 14.5 12.0 - 16.0 G/DL 08/19/2016 8:30 PM CDT [facility] HCT 43.5 38.0 - 48.0 % 08/19/2016 8:30 PM CDT [facility] MCV 90.6 81.0 - 99.0 FL 08/19/2016 8:30 PM CDT [facility] MCH 30.2 27.0 - 31.0 PG 08/19/2016 8:30 PM CDT [facility] MCHC 33.3 32.0 - 36.0 G/DL 08/19/2016 8:30 PM CDT [facility] RDW 13.2 11.5 - 14.5 % 08/19/2016 8:30 PM CDT [facility] PLT 239 130 - 400 x10'3/uL 08/19/2016 8:30 PM CDT [facility] MPV 10.2 9.3 - 12.2 FL 08/19/2016 8:30 PM CDT [facility] IMMATURE GRANS % 0.4 0.0 - 1.0 % 08/19/2016 8:30 PM CDT [facility] NEUTROPHILS % 56.7 43.0 - 65.0 % 08/19/2016 8:30 PM CDT [facility] LYMPHOCYTES % 33.8 20.0 - 46.0 % 08/19/2016 8:30 PM CDT [facility] MONOCYTES % 4.9(L) 5.0 - 12.0 % 08/19/2016 8:30 PM CDT [facility] EOSINOPHILS 3.7(H) 1.0 - 3.0 % 08/19/2016 8:30 PM CDT [facility] BASOPHILS 0.5 0.0 - 1.0 % 08/19/2016 8:30 PM CDT [facility] WHOLE BLOOD SPECIMEN / Unknown 08/19/2016 10:17 AM CDT 08/19/2016 7:19 PM CDT us Generic Conversion [facility] Final R esult [facility] [address] [place] [place] [id number], documented in this encounter Visit Diagnoses Diagnosis Major depressive disorder, single episode Major depressive disorder, single episode, unspecified documented in this encounter Care Teams Coding Compliance Auditor Relationship Specialty Start Date End Date Murtaza Barrett MD PCP - General 08/19/16 documented as of this encounter
--- OUTSIDE RECORDS SUMMARY | 2024-04-22 02:46 | XMS_ITS | Encounter Summary ---
Author Organization [facility] Address [address] [place] [address]. [place], [place] [id number] [place] [address] Care Team Providers Care Buggy Loader Name Role Phone Murtaza Barrett MD Primary Care Provider Kathy delatorre Encounter Details Date Type Department Care Team (Late st Contact Info) Description 09/04/2013 Abstract [facility] Family & Internal Medicine - [address] [phone] Murtaza Barrett MD Social History Tobacco Use [...] Sign Reading Time Taken Comments Blood Pressure 137/92 09/04/2013 12:58 PM CDT Pulse 60 09/04/2013 12:58 PM CDT Temperature - - Respiratory Rate - - Oxygen Saturation - - Inhaled Oxygen Concentration - - Weight 131.5 kg (290 lb) 09/04/2013 12:58 PM CDT Height 165.1 cm (5' 5 ) 09/04/2013 12:58 PM CDT Body Mass Index 48.26 09/04/2013 12:58 PM CDT documented in this encounter Progress Notes * Murtaza Barrett MD - 09/04/2013 1:00 PM CDT Reason For Visit Reason For Visit: New Patient Visit Chief Complaint 1. Neck Pain Chief Complaint Free Text: New patient wants to get established. Noticed a knot to right side of scalp 3 months ago. Was recently seen at [facility] for neck spasms and was given a few Flexeril for her discomfort. History of Present Illness HPI Free Text: Here in the office for the first time to be established as a new patient. She wonders about a nontender bump on the right back of her head that has been there for the last 2 or 3 months. She noticed it incidentally. She also complains of waking with left-sided neck pain the couple of nights ago without any known injury. She was evaluated at the emergency room and given Flexeril which has not beentoo helpful. She also needs a refill of blood pressure medicine that she ran out of some months ago. She denies any chest pain but has been getting headaches. She also complains of some worsening depression with crying spells. She had taken medicines in the past that were very successful and would like to restart those. 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 Review of Systems Complete-Female: See HPI for pertinent positives. Constitutional: no fever, no chills and no fatigue. Cardiovascular: no chest pain and no palpitations. Respiratory: no shortness of breath and no cough. Gastrointestinal: no abdominal pain. Neurological headache. Past Medical History 1. History of hypertension [...] a smoker ?? Single Current Meds 1. No Reported Medications Recorded ELIE = N; Record; Last Updated By: Magda Bermudez; 09/04/2013 1:26:52 PM Allergies 1. No Known Drug Allergies Recorded By: Magda Bermudez; 09/04/2013 1:03:31 PM Vitals Vital Signs [Data Includes: Current Encounter] Recorded by : Magda Bermudez at 04Sep2013 12:58PM Heart Rate 60 Respiration 18 Systolic 137 Diastolic 92 O2 Saturation 99 Not able to obtain height Patient stated height Patient stated height Height 5 ft 5 in Weight 290 lb BMI Calculated 48.26 BSA Calculated 2.32 Physical Exam Constitutional General appearance: No acute distress, well appearing and well nourished. Comfortable and obese. Neck Neck: Supple, symmetric, trachea midline, no masses. Thyroid: Normal, no thyromegaly. Pulmonary Respiratory effort: No increased work of breathing or signs of respiratory distress. Auscultation of lungs: Clear to auscultation. Cardiovascular Auscultation of heart: Normal rate and rhythm, normal S1 and S2, no murmurs. Examination of extremities for edema and/or varicosities: Normal. Abdomen Abdomen: Non-tender, no masses. Lymphatic Palpation of lymph nodes in neck: No lymphadenopathy. Musculoskeletal Gait and station: Normal. Digits and nails: Normal without clubbing or cyanosis. Joints, bones, and muscles: Abnormal. Spine is nontender. She is tender at the left trapezius musculature and has some pain in the area with neck rotation. Skin Skin and subcutaneous tissue: Abnormal. There is a small less than 1 cm mobile nontender subcutaneous mass in the right occiput without any overlying skin change. Psychiatric Judgment and insight: Normal. Mood and affect: Normal. Assessment 1. Hypertension (401.9) (I10) 2. Neck pain (723.1) (M54.2) 3. Depression (311) (F32.9) 4. Epidermal inclusion cyst (706.2) (L72.0) Plan 1. Start: Citalopram Hydrobromide 20 MG Oral Tablet; One daily Rx By: Murtaza Barrett; Dispense: 0 Days ; #:30 Tablet; Refill: 0; For: Depression; ELIE = N; Sent To: [facility] [id number] 2. We encourage all of our patients to exercise regularly. 30 minutes of exercise or physical activity five or more days a week is recommended for children and adults. Status: Active Requested for: [id number] ; Last Updated By: Magda Bermudez; 09/04/2013 1:03:31 PM; Ordered; For: Health Maintenance; Ordered By: Murtaza Barrett 3. We encourage you to begin to make lifestyle changes to help control your blood pressure. These may include losing weight, increasing your activity level, limiting salt in your diet, decreasing alcohol intake, and eating a diet low in fat and rich in fruits and vegetables. Status: Active Requested for: [id number] ; Last Updated By: Magda Bermudez; 09/04/2013 1:03:31 PM; Ordered; For: Health Maintenance; Ordered By: Murtaza Barrett 4. Start: Losartan Potassium 50 MG Oral Tablet; TAKE ONE TABLET BY MOUTH EVERY DAY Rx By: Murtaza Barrett; Dispense: 30 Days ; #:30 Tablet; Refill: 2; For: Hypertension; ELIE = N; Sent To: [facility] 5. Start: Diclofenac Sodium 75 MG Oral Tablet Delayed Release; One pill twice a day for joint pain Rx By: Murtaza Barrett; Dispense: 0 Days ; #:60 Tablet Delayed Release; Refill: 0; For: Neck pain; ELIE = N; Sent To: [facility] [id number] 6. Start: Orphenadrine Citrate ER 100 MG Oral Tablet Extended Release 12 Hour; Take one tablet twice a day as needed for muscle spasm Rx By: Murtaza Barrett; Dispense: 0 Days ; #:30 Tablet Extended Release 12 Hour; Refill: 0; For: Neck pain; ELIE = N; Sent To: [email or web address] [address] She will not need any further attention on the scalp cyst. She will f/u here in a month for her other problems. Signatures Electronically signed by : Murtaza Barrett M.D.; Sep 04 2013 1:35PM NEWS COMMENTATOR (Author) COMMENTATOR documented in this encounter Plan of Treatment Not on file documented as of this encounter Visit Diagnoses Not on filedocumented in this encounter Care Teams Buggy Loader Relationship Specialty Start Date End Date Murtaza Barrett MD PCP - General 08/19/16 documented as of this encounter
--- OUTSIDE RECORDS SUMMARY | 2024-04-22 02:46 | XMS_ITS | Encounter Summary ---
Author Organization [facility] Address [address] [place] [address]. [place], [place] [address] [place] [address] Care Team Providers Care Bmx Rider Name Role Phone Murtaza Barrett MD Primary Care Provider Kathy delatorre Encounter Details Date Type Department Care Team (Latest Contact Info) Description 04/30/2014 Abstract [facility] , Generic ConversionMD Social History Tobacco Use Types Packs/Day Years Used Date Smoking Tobacco: Never Assessed Comments Unknown Sex and Gender Information Value Date Recorded Sex Assigned at Not on file Legal Sex Female 9:13 PM CDT Gender Identity Not on file Sexual Orientation Not on file documented as of this encounter Progress Notes * Generic Conversion MD Milton - 04/30/2014 11:49 AM CST Message Recorded as Task Date: 04/30/2014 10:51 AM, Created By: Sarahy Naqvi Task Name: Medical Complaint Callback Assigned To: [facility] [place] [facility] Team Arnold Regarding Patient: Lynn Gonzalez, Status: Active Comment: Sarahy Naqvi - 30 Apr 2014 10:51 AM TASK CREATED Caller: Self; Medical Complaint; coughing, chest hurting, fever, runny nose. coughing up green. is asking for zpak and steroids. no allergies Murtaza Barrett - 30 Apr 2014 10:53 AM TASK REASSIGNED: Previously Assigned To Murtaza Barrett medrol dose pack, 4mg, 6day, as directed Ingrid Ellison - 30 Apr 2014 11:49 AM TASK EDITED Advised pt escribed meds to pharm [facility]JD Signatures Electronically signed by : Ingrid Ellison, ; Apr 30 2014 11:50AM GARAGE MECHANIC (Author) documented in this encounter Plan of Treatment Not on file documented as of this encounter Visit Diagnoses Not on filedocumented in this encounter Care Teams Bmx Rider Relationship Specialty Start Date End Date Murtaza Barrett MD PCP - General 08/19/16 documented as of this encounter
--- OUTSIDE RECORDS SUMMARY | 2024-04-22 02:46 | XMS_ITS | Encounter Summary ---
Author Organization [facility] Address [address] [place] [address]. [place], [place] [phone] [place] [address] Care Team Providers Care Special Forces Weapons Sergeant Name Role Phone Murtaza Barrett MD Primary Care Provider Kathy delatorre Encounter Details Date Type Department Care Team (Latest Contact Info) Description 03/20/2014 Abstract [facility] Medical Group Social History Tobacco Use Types Packs/Day Years Used Date Smoking Tobacco: Never Assessed Comments Unknown Sex and Gender Information Value Date Recorded Sex Assigned at Not on file Legal Sex Female 9:13 PM CDT Gender Identity Not on file Sexual Orientation Not on file documented as of this encounter Progress Notes * Generic Conversion MD Milton - 03/20/2014 3:26 PM CST Message Recorded as Task Date: 03/20/2014 01:26 PM, Created By: Ruth Alicia Task Name: Medical Complaint Callback Assigned To: [facility] Team Arnold Regarding Patient: Lynn Gonzalez, Status: In Progress Comment: Ruth Alicia - 20 Mar 2014 1:26 PM TASK CREATED Caller: Self; Medical Complaint; ; coughing, congestion for three days would like rx, NKA, uses Murtaza Matute - 20 Mar 2014 1:47 PM TASK REASSIGNED: Previously Assigned To Murtaza Barrett Rijeana - 20 Mar 2014 3:26 PM TASK IN PROGRESS Plan 1. Start: Azithromycin 250 MG Oral Tablet (Zithromax Sushil); TAKE TWO TABLETS AT ONCE TODAY , THEN TAKE ONE TABLET - DAILY FOR FOURDAYS Signatures Electronically signed by : Magda Bermudez, ; Mar 20 2014 3:27PM BANDAGE WRAPPING MACHINE OPERATOR (Author) documented in this encounter Plan of Treatment Not on file documented as of this encounter Visit Diagnoses Not on filedocumented in this encounter Care Teams Special Forces Weapons Sergeant Relationship Specialty Start Date End Date Murtaza Barrett MD PCP - General 08/19/16 documented as of this encounter
--- OUTSIDE RECORDS SUMMARY | 2024-04-22 02:46 | XMS_ITS | Encounter Summary ---
Author Organization [facility] Address [address] [place] [address]. [place], [place] [address] [place] [address] Care Team Providers Care Hospital Educator Name Role Phone Murtaza Barrett MD Primary Care Provider Kathy delatorre Encounter Details Date Type Department Care Team (Latest Contact Info) Description 10/31/2015 Abstract [facility] Social History Tobacco Use Types Packs/Day Years Used Date Smoking Tobacco: Never Assessed Comments Unknown Sex and Gender Information Value Date Recorded Sex Assigned at Not on file Legal Sex Female 9:13 PM CDT Gender Identity Not on file Sexual Orientation Not on file documented as of this encounter Progress Notes * Generic Conversion MD Milton - 10/31/2015 2:54 PM CDT Message Recorded as Task Date: 10/31/2015 12:49 PM, Created By: Melani Mejia Task Name: Medical Complaint Callback Assigned To: [facility] [place] Arnold Regarding Patient: Lynn Gonzalez, Status: Active Comment: Melani Mejia - 31 Oct 2015 12:49 PM TASK CREATED Pt has horrible sinus pain pressure and congestion, was rx'd zpack and finished it 2 days ago, feeling worse. (Sounds horrible on the phone) Using OTC with no relief-[facility]# [phone] Murtaza Cohen - 31 Oct 2015 12:59 PM TASK REASSIGNED: Previously Assigned To Murtaza Barrett Augmentin 875 mg b.i.d. x10 days Prednisone 40 mg x5 days Message: Rx to pharm-pt updated-[facility] Plan 1. Amoxicillin-Pot Clavulanate 875-125 MG Oral Tablet (Augmentin); TAKE 1 TABLET EVERY 12 HOURS DAILY Rx By: Murtaza Barrett; Dispense: 10 Days ; #:20 Tablet; Refill: 0; For: Upper respiratory infection; ELIE = N; Verified Transmission to [facility] # [id number]; Last Updated By: 46elks; 10/31/2015 2:59:31 PM 2. PredniSONE 20 MG Oral Tablet; TAKE 2 TABLET DAILY IN THE MORNING for 5 Days Rx By: Murtaza Barrett; Dispense: 5 Days ; #:10 Tablet; Refill: 0; For: Upper respiratory infection; ELIE = N; Verified Transmission to [facility] # [id number]; Last Updated By: 46elks; 10/31/2015 2:59:31 PM Signatures Electronically signed by : Melani Mejia R.N.; Nov 01 2015 12:13PM DRYWALL FINISHING FOREMAN (Author) documented in this encounter Plan of Treatment Not on file documented as of this encounter Visit Diagnoses Not on filedocumented in this encounter Care Teams Hospital Educator Relationship Specialty Start Date End Date Murtaza Barrett MD PCP - General 08/19/16 documented as of this encounter
--- OUTSIDE RECORDS SUMMARY | 2024-04-22 02:46 | XMS_ITS | Encounter Summary ---
Author Organization [facility] Address [facility]. [place], [place] [address] [place] [address] Care Team Providers Care Boatbuilder Wood Name Role Phone Murtaza Barrett MD Primary Care Provider Kathy delatorre Encounter Details Date Type Department Care Team (Late st Contact Info) Description 09/02/2016 Abstract [facility] Medical Group Family & Internal Medicine - [address] [phone] Murtaza Barrett MD Social History Tobacco Use [...] Sign Reading Time Taken Comments Blood Pressure 142/92 09/02/2016 7:23 AM CDT Pulse 74 09/02/2016 7:23 AM CDT Temperature - - Respiratory Rate - - Oxygen Saturation - - Inhaled Oxygen Concentration - - Weight 141.5 kg (312 lb) 09/02/2016 7:23 AM CDT Height 165.1 cm (5' 5 ) 09/02/2016 7:23 AM CDT Body Mass Index 51.92 09/02/2016 7:23 AM CDT documented in this encounter Progress Notes * Murtaza Barrett MD - 09/02/2016 7:15 AM CDT Reason For Visit Chronic Recheck Visit Chief Complaint Patient is here for follow up on depression and anxiety History of Present Illness HPI Free Text: Here for followup on depression and anxiety. She reports that she is taking her medicines without any problems. She notes that she is doing well with the Fluoxetine but states that the Alprazolam is not helping much. She is agreeable to increasing the doses for both and will see how she does with that. Review of Systems See HPI for pertinent positives. Active Problems 1. Depression (311) (F32.9) 2. Depression with anxiety (300.4) (F41.8) 3. Headache (784.0) (R51) 4. Hypertension (401.9) (I10) 5. Urticaria (708.9) (L50.9) Past Medical History 1. History of hypertension [...] a smoker ?? Single Current Meds 1. ALPRAZolam 1 MG Oral Tablet; TAKE 1 TABLET TWICE DAILY; Therapy: 19Aug2016 to (Evaluate:02Oct2016) Recorded 2. FLUoxetine HCl - 20 MG Oral Tablet; TAKE 1 TABLET BY MOUTH DAILY; Therapy: 19Aug2016 to (Evaluate:[id number]) Requested for: 19Aug2016; Last Rx:19Aug2016 Ordered 3. Losartan Potassium 100 MG Oral Tablet; TAKE 1 TABLET BY MOUTH DAILY; Therapy: 05Mar2014 to (Evaluate:25May2016) Requested for: [id number]; Last Rx:[id number] Ordered 4. ProAir HFA 108 (90 Base) MCG/ACT Inhalation Aerosol Solution; INHALE TWO PUFFS BY MOUTH EVERY 4 HOURS; Therapy: [id number] to (Evaluate:12Jul2014) Requested for: [id number]; Last Rx:[id number] Ordered 5. SUMAtriptan Succinate 100 MG Oral Tablet; TAKE ONE TABLET AT ONSET AND MAY REPEAT IN 2 HOURS--MAXIMUM OF 2 TABLETS IN 24 HOURS; Therapy: 05Mar2014 to (Last Rx:[id number]) Requested for: [id number] Ordered 6. ALPRAZolam 0.25 MG Oral Tablet; TK 1 TO 2 TS PO UP TO TID; Therapy: 19Aug2016 to Recorded 7. FLUoxetine HCl - 20 MG Oral Capsule; TK 1 C PO D; Therapy: 19Aug2016 to Recorded Allergies 1. No Known Drug Allergies Vitals Recorded: 02Sep2016 07:23AM Heart Rate 74 Respiration 16 Systolic 142 Diastolic 92 O2 Saturation 97 Height 5 ft 5 in Weight 312 lb BMI Calculated 51.92 BSA Calculated 2.39 Physical Exam Constitutional General appearance: No acute distress, well appearing and well nourished. Musculoskeletal Gait and station: Normal. Psychiatric Orientation to person, place, and time: Normal. Mood and affect: Normal. Assessment 1. Depression with anxiety (300.4) (F41.8) Plan Depression with anxiety 1. Follow-up visit in 2 months Outpatient Follow-up Status: Complete Done: 02Sep2016 Ordered; For: Depression with anxiety; Ordered By: Murtaza Barrett Performed: Due: 16Sep2016; LastUpdated By: Ruth Alicia; 09/02/2016 7:53:00 AM Depression, Headache, Hypertension 2. FLUoxetine HCl - 20 MG Oral Tablet; Take 2 tablets daily Rx By: Murtaza Barrett; Dispense: 30 Days ; #:60 Tablet; Refill: 0; For: Depression, Headache, Hypertension; ELIE = N; Verified Transmission to [facility] # [id number]; Last Updated By: Shelly Nathan; 09/02/2016 7:47:27 AM Signatures Electronically signed by : Murtaza Barrett M.D.; Sep 03 2016 7:49PM WORK DISTRIBUTOR (Author) documented in this encounter Plan of Treatment Not on file documented as of this encounter Visit Diagnoses Not on filedocumented in this encounter Care Teams Boatbuilder Wood Relationship Specialty Start Date End Date Murtaza Barrett MD PCP - General 08/19/16 documented as of this encounter
--- OUTSIDE RECORDS SUMMARY | 2024-04-22 02:46 | XMS_ITS | Encounter Summary ---
Author Organization [facility] Address [address] [place] [address]. [place], [place] [address] [place] [address] Care Team Providers Care Sawmilling Operator Name Role Phone Murtaza Barrett MD Primary Care Provider Kathy delatorre Encounter Details Date Type Department Care Team (Latest Contact Info) Description 08/20/2016 Abstract [facility] Medical Group Social History Tobacco Use Types Packs/Day Years Used Date Smoking Tobacco: Never Assessed Comments Unknown Sex and Gender Information Value Date Recorded Sex Assigned at Not on file Legal Sex Female 9:13 PM CDT Gender Identity Not on file Sexual Orientation Not on file documented as of this encounter Progress Notes * Murtaza Barrett MD - 08/20/2016 11:29 AM CDT Verified Results *LIPID/Glucose [facility] In Office 19Aug2016 10:52AM Murtaza [...] Glucose Negative Bilirubin Negative Ketones Negative Specific [place] 1.015 Blood Negative pH 8.5 5.0 - 7.0 Protein 30 mg/dL-1+ A Urobilinogen 0.2 E.U./dL Nitrites neg Leukocytes Negative CBC W Differential 19Aug2016 10:17AM Murtaza Barrett Test Name Result Flag Reference WBC 7.5 x10'3/uL 4.8-10.8 RBC 4.80 x10'6/uL 4.20-5.40 Hemoglobin (HGB) 14.5 G/DL 12.0-16.0 Hematocrit (HCT) 43.5 % 38.0-48.0 Mean Corpuscular Volume (MCV) 90.6 FL 81.0-99.0 Mean Corpuscular Hgb (MCH) 30.2 PG 27.0-31.0 Mean Corpuscular Hgb Conc (MCH 33.3 G/DL 32.0-36.0 RDW 13.2 % 11.5-14.5 PLATELET COUNT 239 x10'3/uL 130-400 Mean Platelet Volume (MPV) 10.2 FL 9.3-12.2 IMMATURE GRANULOCYTES 0.4 % 0.0-1.0 NEUTROPHILS 56.7 % 43.0-65.0 Lymphocytes % (Auto) 33.8 % 20.0-46.0 MONOCYTES 4.9 % L 5.0-12.0 Eosinophils % (Auto) 3.7 % H 1.0-3.0 Basophils % (Auto) 0.5 % 0.0-1.0 Compr Metabolic Prof ( CMP ) 19Aug2016 10:17AM Murtaza Barrett Test Name Result Flag Reference Glucose 93 mg/dL 70-99 Blood Urea Nitrogen (BUN) 7 mg/dL L 8-23 Creatinine 0.48 mg/dL L 0.60-1.10 Sodium (Na) 141 mmol/L 136-145 Potassium (K) 4.5 mmol/L 3.5-5.1 Chloride (Cl) 102 mmol/L 98-107 Carbon Dioxide (CO2) 29 mmol/L 22-29 Total Bilirubin 0.3 mg/dL 0.2-1.2 Calcium 8.7 mg/dL 8.6-10.2 Alkaline Phosphatase (ALKP) 48 U/L 35-104 AST/GOT 16 U/L 0-32 Total Protein 6.4 g/dL 6.4-8.3 Albumin 3.9 g/dL 3.5-5.2 ALT/GPT 21 U/L 0-33 Globulin, Calc 2.5 g/dL 2.3-3.6 A:G Ratio 1.6 1.0-2.0 Anion Gap 15 8-20 Glomerular Filt Rate Calc >60 mL/min/1.73m'2 >60 Glomerular Filt Rate (AA) Calc >60 >60 NOTE: eGFR is not calculated for patients <18 years of age. This is an estimated GFR (CKD EPI) and should not be used for calculating drug doses. mL/min/1.73m'2 TSH W Reflex Free T4 19Aug2016 10:17AM Murtaza Barrett Test Name Result Flag Reference TSH w Reflex Free T4 0.93 mIU/mL 0.27-4.20 FREE T4 NOT INDICATED Uric Acid 19Aug2016 10:17AM Murtaza Barrett Test Name Result Flag Reference Uric Acid 6.3 mg/dL H 2.4-5.7 NOTE: Acetaminophen, N Acetyl p benzoquinone imine (NAPQI), N acetylcysteine (NAC), Metamizole, 4 Aminoantipyrine (4 AAP) and 4 Methylamino antipyrine (4 MAP) at high concentrations can cause falsely low results on Lactate, Uric Acid, Cholesterol, Triglyceride, HDL, and Direct LDL. Discussion/Summary Labs all good/normal other than some protein in the urine. We will recheck this when she returns. CPM and F/U as planned. documented in this encounter Plan of Treatment Not on file documented as of this encounter Visit Diagnoses Not on filedocumented in this encounter Care Teams Sawmilling Operator Relationship Specialty Start Date End Date Murtaza Barrett MD PCP - General 08/19/16 documented as of this encounter
--- OUTSIDE RECORDS SUMMARY | 2024-04-22 02:46 | XMS_ITS | Clinical Summary ---
Author Organization [facility] Address [address] [place] [address]. [place], [place] [address] [place] [address] Care Team Providers Care Library Supervisor Name Role Phone Murtaza Barrett MD Primary Care Provider Kathy delatorre Social History Tobacco Use Types Packs/Day Years Used Date Smoking Tobacco: Never Assessed Comments Unknown Sex and Gender Information Value Date Recorded Sex Assigned at Not on file Legal Sex Female 9:13 PM CDT Gender Identity Not on file Sexual Orientation Not on file Last Filed Vital Signs Vital Sign Reading [...] Mass Index 51.92 09/02/2016 7:23 AM CDT Plan of Treatment Health Maintenance Due Date Last Done Comments Cervical Cancer Screening Pa p Smear (Age 30 to 64) Every 3 Years 1985 Annual Physical 02/10/1988 Hepatitis C 2003 DTaP, Tdap and Td Vaccines ( 1 - Tdap) 02/10/2004 Hepatitis B Vaccines (1 of 3 - 19+ 3-dose series) 02/10/2004 Cervical Cancer Screening Pa p with HPV Testing (Age 30 to 64) Every 5 Years 2015 Cervical Cancer Screening with HPV 2015 COVID-19 Vaccine (2023-2 5 season) 2023 Influenza Adult (#1) 2024 HPV Vaccines Aged Out No longer eligi ble based on patient's age to complete this topic Meningococcal Vaccine Aged Out No zehra nilson eligible based on patient's age to complete this topic Pneumococcal Vaccine: Pediat rics (0 to 5 Years) and At-Risk Patients (6 to 64 Years) Aged Out No longer eligible b ased on patient's age to complete this topic RSV Immunizations Under 20 Months Aged Out No longer eligible based on patient's age to complete this topic Care Teams Library Supervisor Relationship Specialty Start Date End Date Murtaza Barrett MD PCP - General 08/19/16
--- OUTSIDE RECORDS SUMMARY | 2024-04-22 02:46 | XMS_ITS | Encounter Summary ---
Author Organization [facility] Address [address] [place] [address]. [place], [place] [address] [place] [address] Care Team Providers Care Shipping And Receiving Operator Name Role Phone Murtaza Barrett MD Primary Care Provider Kathy delatorre Encounter Details Date Type Department Care Team (Latest Contact Info) Description 06/12/2014 Abstract [facility] Medical Group Social History Tobacco Use Types Packs/Day Years Used Date Smoking Tobacco: Never Assessed Comments Unknown Sex and Gender Information Value Date Recorded Sex Assigned at Not on file Legal Sex Female 9:13 PM CDT Gender Identity Not on file Sexual Orientation Not on file documented as of this encounter Progress Notes * Generic Conversion MD Milton - 06/12/2014 1:49 PM CST Message Recorded as Task Date: 06/12/2014 08:58 AM, Created By: Ruth Alicia Task Name: Medical Complaint Callback Assigned To: [facility] [place] Arnold Regarding Patient: Lynn Gonzalez, Status: In Progress Comment: Ruth Alicia - 12 Jun 2014 8:58 AM TASK CREATED Caller: Self; Medical Complaint; c/o [id number], congestion, runny nose, fever-102, shortness of breath with the coughing- for about four days. asking for abx and/or steroid NKA, uses Murtaza Matute - 12 Jun 2014 9:26 AM TASK REASSIGNED: Previously Assigned To Murtaza Barrett Z-Jac Medrol Dosepak, 4 mg, six day, as directed Provera HFA, two puffs every four hours as needed Antonio,Luzma - 12 Jun 2014 1:01 PM TASK IN PROGRESS Plan 1. Azithromycin 250 MG Oral Tablet; TAKE TWO TABLETS AT ONCE TODAY , THEN TAKE ONE TABLET - DAILY FOR FOURDAYS 2. Medrol (Jac) 4 MG Oral Tablet (MethylPREDNISolone (Jac)); TAKE DIRECTED ON PATIENT INSTRUCTION CARD 3. ProAir HFA 108 (90 Base) MCG/ACT Inhalation Aerosol Solution; INHALE TWO PUFFS BY MOUTH EVERY 4 HOURS Signatures Electronically signed by : Maya Díaz, ; Jun 12 2014 1:50PM IRON LAUNDER OPERATOR (Author) documented in this encounter Plan of Treatment Not on file documented as of this encounter Visit Diagnoses Not on filedocumented in this encounter Care Teams Shipping And Receiving Operator Relationship Specialty Start Date End Date Murtaza Barrett MD PCP - General 08/19/16 documented as of this encounter
--- OUTSIDE RECORDS SUMMARY | 2024-04-22 02:46 | XMS_ITS | Encounter Summary ---
Author Organization [facility] Address [address] [place] [address]. [place], [place] [address] [place] [address] Care Team Providers Care Tool Engineer Name Role Phone Murtaza Barrett MD Primary Care Provider Kathy delatorre Encounter Details Date Type Department Care Team (Late st Contact Info) Description 03/05/2014 Abstract [facility] Medical Group Family & Internal Medicine [address] [phone] Murtaza Barrett MD Social History Tobacco Use [...] Sign Reading Time Taken Comments Blood Pressure 150/98 03/05/2014 3:47 PM PACKAGING SALES Pulse 86 03/05/2014 3:47 PM PACKAGING SALES Temperature - - Respiratory Rate - - Oxygen Saturation - - Inhaled Oxygen Concentration - - Weight 145.6 kg (321 lb) 03/05/2014 3:47 PM PACKAGING SALES Height 165.1 cm (5' 5 ) 03/05/2014 3:47 PM PACKAGING SALES Body Mass Index 53.42 03/05/2014 3:47 PM PACKAGING SALES documented in this encounter Progress Notes * Murtaza Barrett MD - 03/05/2014 4:00 PM CST Reason For Visit Acute Visit Chief Complaint Here for daily headaches that are getting worse. History of Present Illness here complaining of worsening headaches for the last month or so that are more days than not. She can wake up with these. She also coincidentally has run out of her blood pressure medicine in approximately 6 weeks ago. She denies any chest pain or swelling in her legs. She also has been quite fatigued and would like that looked into. She last 6 complains that her moods are worsening and does admit that she quit her antidepressant. She initially had felt well on that medicine. Review of Systems See HPI for pertinent positives. Constitutional: headache, but not feeling poorly and not feeling tired. Cardiovascular: the heart rate was not slow, no chest pain and no palpitations. Respiratory: [...] N; Record; Last Updated By: Magda Bermudez; 03/05/2014 3:47:56 PM Allergies 1. No Known Drug Allergies Recorded By: Magda Bermudez; 09/04/2013 1:03:31 PM Vitals Signs [Data Includes: Current Encounter] Recorded by : Magda Bermudez at 05Mar2014 03:47PM Heart Rate: 86 Respiration: 18 Systolic: 150 Diastolic: 98 O2 Saturation: 97 Height: 5 ft 5 in Weight: 321 lb BMI Calculated: 53.42 BSA Calculated: 2.42 Physical Exam Constitutional General appearance: No acute [...] No lymphadenopathy. Musculoskeletal Gait and station: Normal. Psychiatric Orientation to person, place, and time: Normal. Mood and affect: Normal. Assessment 1. Headache (784.0) (R51) 2. Fatigue (780.79) (R53.83) 3. Hypertension (401.9) (I10) 4. Depression (311) (F32.9) Plan Depression 1. Start: Citalopram Hydrobromide 20 MG Oral Tablet; One daily Depression, Fatigue, Headache, Hypertension 2. CBC W Differential Status: Active Requested for: 05Mar2014 3. Compr Metabolic Prof ( CMP ) Status: Active Requested for: 05Mar2014 4. Lipid Profile Status: Active Requested for: 05Mar2014 5. Thyroid Stim Hormone ( TSH ) Status: Active Requested for: 05Mar2014 Headache 6. Start: SUMAtriptan Succinate 100 MG Oral Tablet (Imitrex 100 MG Oral Tablet); TAKE ONE TABLET AT ONSET AND MAY REPEAT IN 2 HOURS--MAXIMUM OF 2 TABLETS IN 24 HOURS Hypertension 7. Start: Losartan Potassium 50 MG Oral Tablet; TAKE ONE TABLET BY MOUTH EVERY DAY we will get some labs and restart her chronic medicines. We we'll get her a new prescription of Imitrex which she took with great success last year. Signatures Electronically signed by : Murtaza Barrett M.D.; Mar 06 2014 8:49AM PACKAGING SALES (Author) documented in this encounter Plan of Treatment Not on file documented as of this encounter Visit Diagnoses Not on filedocumented in this encounter Care Teams Tool Engineer Relationship Specialty Start Date End Date Murtaza Barrett MD PCP - General 08/19/16 documented as of this encounter
--- OUTSIDE RECORDS SUMMARY | 2024-04-22 02:46 | XMS_ITS | Encounter Summary ---
Author Organization [facility] Address [address] [place] [address]. [place], [place] [address] [place] [address] Care Team Providers Care Lamination Builder Name Role Phone Murtaza Barrett MD Primary Care Provider Kathy delatorre Encounter Details Date Type Department Care Team (Latest Contact Info) Description 08/24/2016 Abstract [facility] Medical Group Social History Tobacco Use Types Packs/Day Years Used Date Smoking Tobacco: Never Assessed Comments Unknown Sex and Gender Information Value Date Recorded Sex Assigned at Not on file Legal Sex Female 9:13 PM CDT Gender Identity Not on file Sexual Orientation Not on file documented as of this encounter Progress Notes * Murtaza Barrett MD - 08/24/2016 12:09 PM CDT Message [id number] Verified Results Vitamin D 25 - Hydroxy 19Aug2016 10:17AM Murtaza Barrett Test Name Result Flag Reference Vitamin D 25-Hydroxy 9 NG/ML L 30-100 SUPPLEMENTING WITH VITAMIN D2 MAY RESULT IN FALSELY LOW RESULTS, CLINICAL CORRELATION NEEDED. INTERPRETATION DEFICIENT <20 INSUFFICIENT 20-30 SUFFICIENT 30-100 POTENTIAL INTOXICATION >100 [place] [address] Discussion/Summary a late returning lab results shows vitamin D at nine. We like this closer to 40. Recommend vitamin D 50,000 international units weekly. Recheck in two months. documented in this encounter Plan of Treatment Not on file documented as of this encounter Visit Diagnoses Not on filedocumented in this encounter Care Teams Lamination Builder Relationship Specialty Start Date End Date Murtaza Barrett MD PCP - General 08/19/16 documented as of this encounter
--- OUTSIDE RECORDS SUMMARY | 2024-04-22 02:46 | XMS_ITS | Encounter Summary ---
Author Organization [facility] Address [address] [place] [address]. [place], [place] [address] [place] [address] Care Team Providers Care Guest Experience Captain Name Role Phone Murtaza Barrett MD Primary Care Provider Kathy delatorre Encounter Details Date Type Department Care Team (Latest Contact Info) Description 05/20/2015 Abstract [facility] Medical Group Social History Tobacco Use Types Packs/Day Years Used Date Smoking Tobacco: Never Assessed Comments Unknown Sex and Gender Information Value Date Recorded Sex Assigned at Not on file Legal Sex Female 9:13 PM CDT Gender Identity Not on file Sexual Orientation Not on file documented as of this encounter Progress Notes * Generic Conversion MD Milton - 05/20/2015 4:17 PM CST Message Recorded as Task Date: 05/20/2015 09:31 AM, Created By: Whitney Yanes Task Name: Medical Complaint Callback Assigned To: [facility] [place] Maria D Barrett Regarding Patient: Lynn Gonzalez, Status: In Progress Comment: Whitney Yanes - 20 May 2015 9:31 AM TASK CREATED Caller: Self; Medical Complaint; ; symptoms: cough, green mucus coughing up and draining out of nose pt used the last of the antibiotic 05/15 [facility] [place] Melani Mejia - 20 May 2015 12:24 PM TASK REASSIGNED: Previously Assigned To [facility] Team Arnold Pt complaint below- Murtaza Barrett - 20 May 2015 12:40 PM TASK REASSIGNED: Previously Assigned To Murtaza Barrett how did she do on the 10 day course of Augmentin called out 05/02/15? Melani Mejia - 20 May 2015 3:26 PM TASK REASSIGNED: Previously Assigned To [facility] Team Arnold Flakita the augmentin just fine, but symptoms hav never gotten better. Murtaza Barrett - 20 May 2015 4:06 PM TASK REASSIGNED: Previously Assigned To Murtaza Barrett Levaquin 500 mg daily x10 days Nuzhat Correa - 20 May 2015 4:16 PM TASK IN PROGRESS Message: patient notified , rx sent to [facility] 1. Azithromycin 250 MG Oral Tablet Rx By: Murtaza Barrett; Dispense: 0 Days ; #:6 Tablet; Refill: 0; For: Upper respiratory infection; ELIE = N; Sent To: [facility] # [id number]; Last Updated By: Nuzhat Correa; 05/20/2015 4:21:52 PM 2. Levofloxacin 500 MG Oral Tablet; TAKE 1 TABLET DAILY UNTIL FINISHED Rx By: Murtaza Barrett; Dispense: 10 Days ; #:10 Tablet; Refill: 0; For: Upper respiratory infection; ELIE = N; Sent To: [facility] # [id number]; Last Updated By: Nuzhat Correa; 05/20/2015 4:22:45PM Signatures Electronically signed by : Nuzhat Correa MA; May 20 2015 4:22PM SPRING COVERER (Author) documented in this encounter Plan of Treatment Not on file documented as of this encounter Visit Diagnoses Not on filedocumented in this encounter Care Teams Guest Experience Captain Relationship Specialty Start Date End Date Murtaza Barrett MD PCP - General 08/19/16 documented as of this encounter
--- OUTSIDE RECORDS SUMMARY | 2024-04-22 03:01 | XMS_ITS | Continuity of Care Document ---
Author Organization [facility] Address [address] [place] [address] Phone Care Team Providers Care Extractive Metallurgist Name Role Phone Baltazar Garza MD Unavailable [...] Copied on Encounter OFFICE/OUTPA TIENT VISIT, EST [facility], [address] [place], [address], [place] tel:[phone] [facility] hip pain (chief complaint) toothache (chief complaint) HTN (chief complaint) Pain in joint, site unspecifiedAttentio n deficit disorder of childhood without mention of hyperactivityDietar y surveillance and counselingHypertens ion, UnspecifiedAtypical face pain Sep-2 0 3 Greg Ledesma. [address], [place], [address]. [phone] Referring Provider: Baltazar Garza, [address], [place], [address]. tel:[phone] OFFICE/OUTPA TIENT VISIT, [facility], [address], [place], [place], [facility], tel:[phone] [facility] Hip pain (chief complaint) ADD (chief complaint) HTN (chief complaint) Dietary surveillance and counselingPain in joint, site unspecifiedHyperten guadalupe, UnspecifiedAttentio n deficit disorder of childhood without mention of hyperactivity 3 Greg Ledesma. [address], [place], [place], [facility]. tel:[phone] Referring Provider: Baltazar Garza, [address], [place], [place], [facility]. tel:[phone] OFFICE/OUTPA TIENT VISIT, [facility], [address], [place], [address], [place] tel:[phone] [facility] hip pain (chief complaint) ADD (chief complaint) HTN (chief complaint) Dietary surveillance and counselingDietary surveillance and counselingPain in joint, site unspecifiedAttentio n deficit disorder of childhood without mention of hyperactivityHypert ension, Unspecified 3 Greg Ledesma. [address], [place], [address]. tel:[phone] Referring Provider: Baltazar Garza [address], [place], [address]. tel:[phone] OFFICE/OUTPA TIENT VISIT, [facility], [address], [place], [address], [place] tel:[phone] [facility] hip pain (chief complaint) ADD (chief complaint) Dietary surveillance and counselingPain in joint, site unspecifiedAttentio n deficit disorder of childhood without mention of hyperactivityHypert ension, Unspecified 3 Greg Ledesma. [address], [place], [address]. tel:[phone] Referring Provider: Baltazar Garza, [address] [facility] [address], [place], [address]. tel:[phone] PREV VISIT, NEW, AGE 18-39 [facility], [address], [place], [address], tel:[phone] [facility] Physical (chief complaint) ADD (chief complaint) Dietary surveillance and counselingRoutine Medical ExamRoutine Medical Exam 3 Greg Ledesma. [address], [place], [address]. tel:[phone] Referring Provider: Baltazar Garza, [address] [facility] [address], [place], [address]. tel:[phone] Family History Family Member Type Diagnosis Age At Onset Mother Problem (finding) Hypertension Father Problem (finding) Diabetes mellitus Brother Problem (finding) Alive and well Payers Payer name Insurance type Covered libertarian ID Authoriza tion(s) No Information Social History [...] Information Instructions Date Instruction Additional Infor mation Dietary counseling Related to Di etary surveillance [...] caloric intake Related to Dietary surveillance counseling Assessments Type Assessment Date No Information Mental Status Date Cognitive Assessment Orientation - [place] ed to time, place, person, situation.
== END 2024-04-15 06:27 | disposition home or self-care (01) ==
PROVIDERS: Emergency Provider Emergency Medicine; PCP Nurse Practitioner Family
DX: M54.50 Low back pain, unspecified (principal); G89.29 Other chronic pain; E66.01 Morbid (severe) obesity due to excess calories; Z68.39 Body mass index [BMI] 39.0-39.9, adult; F41.8 Other specified anxiety disorders; J45.909 Unspecified asthma, uncomplicated; I10 Essential (primary) hypertension; Z96.643 Presence of artificial hip joint, bilateral; Z87.891 Personal history of nicotine dependence
CPT/HCPCS: 96372; 99284; A9270; J1885; J3360

== ENCOUNTER 2024-07-28 17:56 | Emergency (ER) | payer OTHER, SELFPAY ==
--- OUTSIDE RECORDS SUMMARY | 2024-07-28 18:01 | XMS_ITS | Data Portability ---
Author Organization [facility] [place] Address [address] [place] [address] Assessment Encounter Date Assessment Date Assessment LastModified [...] and will follow up on labs then. [email or web address] Not available 10/09/2020 13:44:13 11/26/2020 11/26/2020 healthy female exam patient declines std testing pap done, discussed guidelines mammogram at 40 contraception-t ubal discussed provera prn vs progesterone BC for prevention of hyperplasia. Pt prefers prn provera for now. script sent. will use if no menses in 3 mos. FU 1 year or prn [email or web address] Not available 11/27/2020 08:19:12 Plan of Treatment Reminders Order Date Submit Date Provider Last Modified By Organization Details Last Modified Time Details Appointments None recorded. Lab dhea-sulfat e, serum 2020 021 [facility] (Lab), [address], [place], [address], 22:14:15 estradiol, serum 2020 021 [facility] (Lab), [address], [place], [address], 1 22:14:16 FSH (follicle-s timulating hormone), serum 2020 [facility] (Lab), [address], [place], [address], 1 22:14:16 HbA1c (hemoglobin A1c), blood 2020 021 [facility] (Lab), [address], [place], [address], 1 22:14:17 prolactin, serum 2020 [facility] (Lab), [address], [place], [address], 1 22:14:16 TSH, serum or plasma 2020 [facility] (Lab), [address], [place], [address], 1 22:14:15 testosteron e free/testos terone total, ratio, serum 2020 [facility] (Lab), [address], [place], [address], 1 22:14:17 Referral None recorded. Procedures None recorded. Surgeries None recorded. Imaging None recorded. Medication Orders Provera 10 mg tablet 2020 [id number], [address], [place], [place], [id number], 18:08:26 Patient TargetsNo targets recorded. Patient InstructionsNo instructions recorded. Reason for Referral None Reported. Results Created Date Observation Date Name Description Value Unit Range Abnormal Flag Note LastModifiedBy Organization Detail LastModifiedTime 10/10/19 21 10/09/2020 TSH, serum or plasm a TSH 1.09 uIU/m L 0.30-5 .33 Not Available [facility] (Lab) [address], [place], [address], 10/12/2020 22:14:15 10/10/19 21 10/09/2020 dhea- sulfa te, serum DHEA-sulfate 223 ug/dL Femal e Range s Age(y ) Range (ug/d L) 10-15 34-28 0 15-20 65-36 8 20-25 148-4 07 25-35 99-34 0 35-45 61-33 7 45-55 35-25 6 55-65 19-20 5 65-75 9-246 > 75 12-15 4 Not Available [facility] (Lab) [address], [place], [address], 10/12/2020 22:14:15 10/10/19 21 10/09/2020 estra diol, serum estradiol 56.1 pg/mL This assay was perfo rmed using [employer] ratio n reage nts and test kits. Value s obtai maddi with other assay metho ds or kits canno t be used inter cavanaugh eay . Femal e Estra diol Range s: Folli cular phase 12.4- 233 pg/mL Ovula tion phase 41.0- 398 pg/mL Lutea l phase 22.3- 341 pg/mL Postm enopa usal< 5-138 pg/mL Healt hy Pregn ant Women 1st Trime ster1 54-32 43 pg/mL 2nd Trime ster1 561-2 1280 pg/mL 3rd Trime ster8 525-> 27169 pg/mL Not Available [facility] (Lab) [address], [place], [address], 10/12/2020 22:14:16 10/10/19 21 10/09/2020 FSH (foll icle- stimu latin g hormo ne), serum FSH 7.7 mIU/m L This assay was perfo rmed using [employer] ratio n reage nts and test kits. Value s obtai maddi with other assay metho ds or kits canno t be used inter cavanaugh eably . Femal es Folli cular : 3.5-1 2.5 mIU/m L Ovula tion: 4.7-2 1.5 mIU/m L Lutea l: 1.7-7 .7 mIU/m L Postm enopa use: 25.8- 134.8 mIU/m L Not Available [facility] (Lab) [address], [place], [address], 10/12/2020 22:14:16 10/10/19 21 10/09/2020 prola ctin, serum prolactin, total 7.50 NG/mL 4.79-2 3.30 This assay was perfo rmed using [employer] ratio n reage nts and test kits. Value s obtai maddi with other assay metho ds or kits canno t be used inter cavanaugh eably . Not Available [facility] (Lab) [address], [place], [address], 10/12/2020 22:14:16 10/10/19 21 10/09/2020 HbA1c (hemo [...] >8.0% Actio n sugge sted Not Available [facility] (Lab) [address], [place], [address], 10/12/2020 22:14:17 10/10/19 21 10/09/2020 testo stero ne free/ testo stero ne total , ratio , serum testosterone , total 19 NG/dL 2-45 For addit ional infor norm benavides e refer to http: //[facility].que stdia gnost ics.c om/fa q/Tot al Testo stero neLCM SMS (This link is being provi ded for infor matio nal/e ducat ional purpo ses only. ) This test was devel oped and its ricardo tical perfo rmanc e robina cteri stics have been deter mined by [employer]. It has not been clear ed or appro saumya by the FDA. This assay has been valid ated pursu ant to the CLIA regul ation s and is used for clini rina purpo ses. Not Available [facility] (Lab) [address], [place], [address], 10/12/2020 22:14:17 10/10/1910/09/2020 testo stero ne free/ testo stero ne total , ratio , serum testosterone , free 1.7 pg/mL 0.1-6. 4 This test was devel oped and its ricardo tical perfo rmanc e robina cteri stics have been deter mined by [employer]. It has not been clear ed or appro saumya by the FDA. This assay has been valid ated pursu ant to the CLIA regul ation s and is used for clini rina purpo ses. Perfo rming Organ izati on [facility] n: Site ID: [id number] Name: [employer]-Vinicio aidee Conde cia Addre ss: [address] [place] [address] Direc tor: Nelson garner M.D. Not Available [facility] (Lab) [address], [place], [address], 10/12/2020 22:14:17 11/27/19 21 11/26/2020 IMAGE GUIDE D PAP AND HPV REGAR DLESS image guided Pap, HPV regardless of Pap result SEE RESULT S BELOW CASE REPOR T: Cytol ogy Gynec ologi rina Repor t Case: [id number] Autho carmen g Provi fidel: Glendy Ya MD Colle cted: [...] Intra epith elial Lesio n or Malig immaneul Elect marthafritz lemuselizabeth benjamin d by Gregory [place], CT on [...] Thinp rep Imagi ng Syste m. CLINI RINA INFOR MATIO N: Menst rual Statu s: LMP (if appli cable ): 021 Clini rina Histo ry/Pr eviou s Pap: Type of Neopl toño (if appli cable ): Signi fican t Clini rina Findi ngs: Other Histo ry: Hormo cheryl [...] ng do not corre late with physi rina and/o r histo rical findi ngs, furth er inves tigat ion is recom germán d, as clini leatha warra nted. Not Available [facility] (Lab) [address], [place], [address], 11/27/2020 16:35:11 Result Notes None recorded. Problems Name Problem SNOMED Code Status Onset Date Resolution Date Notes Provider Name and Address Organization Details Recorded Time Body mass index 40+ - severely obese [id number] Active 2020 BMI 58 09/2020 Glendy Jones MD [address], [place], [address], [facility] 12:29:43 Body mass index 30+ - obesity 492576376 Completed 201710/09/2020 Body mass index (BMI) 50-59.9 , adult;Re corded Elsewher e: No Locat ion: [facility] S ource: EHR Waste Machine Tender vinicio: N Pawan ce ID: [id number] Ten lable Time: 10:30:00 AM Glendy Jones MD [address], [place], [address], [facility] 12:29:24 Insertio n of intraute rine contrace ptive device Completed 201010/09/2020 INSERTIO N OF IUD;Prince rded Elsewher e: No Locat ion: [facility] S ource: EHR Waste Machine Tender vinicio: N Practi ce ID: [id number] Ten lable Time: 01:30:00 PM Glendy Jones MD [address], [place], [address], [facility] 1 12:27:21 Galactor florinda not associat ed with childbir [id number] Completed 201310/09/2020 Galactor florinda;Rec orded Elsewher e: No Locat ion: [facility] S ource: EHR Waste Machine Tender vinicio: N Pawan ce ID: [id number] Ten lable Time: 10:30:00 AM Glendy Jones MD [address], [place], [address], [facility] 1 12:26:59 Normal pregnanc y in multigra alyssa [id number] 80959 Completed 201710/09/2020 Encounte r for suprvsn of normal pregnanc y, third trimeste r;Record ed Elsewher e: No Locat ion: [facility] S ource: EHR Waste Machine Tender vinicio: N Pawan ce ID: [id number] Ten lable Time: 09:15:00 AM Glendy Jones MD [address], [place], [address], [facility] 1 12:27:47 Pregnanc y test negative [id number] Completed 201010/09/2020 Pregnanc y examinat ion or test, negative result;R ecorded Elsewher e: No Locat ion: [facility] S ource: EHR Waste Machine Tender vinicio: N Pawan ce ID: [id number] Ten lable Time: 01:30:00 PM Glendy Jones MD [address], [place], [address], [facility] 1 12:27:53 Severe obesity complica ting pregnanc y [id number] 6467938 Completed 201710/09/2020 Obesity complica ting pregnanc y, third trimeste r;Record ed Elsewher e: No Locat ion: [facility] S ource: EHR Waste Machine Tender vinicio: N Practi ce ID: [id number] Ten lable Time: 10:30:00 AM Glendy Jones MD [address], [place], [address], [facility] 1 12:28:01 Isabela ry postpart um mood disturba nce 00964722 Completed 201710/09/2020 Postpart um mood disturba nce;Prince rded Elsewher e: No Locat ion: [facility] S ource: EHR Waste Machine Tender vinicio: N Rosibelti ce ID: [id number] Ten lable Time: 09:00:00 AM Glendy Jones MD [address], [place], [address], [facility] 12:28:19 Candidia sis of skin and nails Completed 201110/09/2020 Candidia sis of skin and nails;Re corded Elsewher e: No Locat ion: [facility] S ource: EHR Waste Machine Tender vinicio: N Rosibelti ce ID: [id number] Ten lable Time: 08:45:00 AM Glendy Jones MD [address], [place], [address], [facility] 1 12:26:54 Hyperten guadalupe in the obstetri c context Completed 201710/09/2020 Pre-exis ting essentia l htn comp pregnanc y, third trimeste r;Record ed Elsewher e: No Locat ion: [facility] S ource: EHR Waste Machine Tender vinicio: N Rosibelti ce ID: [id number] Ten lable Time: 11:00:00 AM Glendy Jones MD [address], [place], [address], [facility] 1 12:27:16 Steriliz ation procedur e Completed 201710/09/2020 Encounte r for steriliz ation;Re corded Elsewher e: No Locat ion: [facility] S ource: EHR Waste Machine Tender vinicio: N Practi ce ID: [id number] Ten lable Time: 10:00:00 AM Glendy Jones MD [address], [place], [address], [facility] 12:28:11 Gestatio n period, 32 weeks [id number] Completed 201710/09/2020 32 weeks gestatio n of pregnanc y;Record ed Elsewher e: No Locat ion: [facility] S ource: EHR Waste Machine Tender vinicio: N Practi ce ID: [id number] Ten lable Time: 11:00:00 AM Glendy Jones MD [address], [place], [address], [facility] 12:27:05 Clinical finding Completed 201710/09/2020 Obesity, unspecif ied;Prince rded Elsewher e: No Locat ion: [facility] S ource: EHR Waste Machine Tender vinicio: N Practi ce ID: [id number] Ten lable Time: 10:30:00 AM Glendy Jones MD [address], [place], [address], [facility] 12:27:01 Gestatio n period, 30 weeks [id number] Completed 201710/09/2020 30 weeks gestatio n of pregnanc y;Record ed Elsewher e: No Locat ion: [facility] S ource: EHR Waste Machine Tender vinicio: N Practi ce ID: [id number] Ten lable Time: 11:00:00 AM Glendy Jones MD [address], [place], [address], [facility] 12:27:35 Amenorrh ea 07203392 Completed 201610/09/2020 Amenorrh ea, unspecif ied;Prince rded Elsewher e: No Locat ion: [facility] S ource: EHR Waste Machine Tender vinicio: N Practi ce ID: [id number] Ten lable Time: 08:30:00 AM Glendy Jones MD [address], [place], [address], [facility] 12:26:35 Large fetus 660131744 Completed 201710/09/2020 Maternal care for excess growth, third trimeste r, unsp;Rec orded Elsewher e: No Locat ion: [facility] S ource: EHR Waste Machine Tender vinicio: N Rosibelti ce ID: [id number] Ten lable Time: 09:00:00 AM Glendy Jones MD [address], [place], [address], [facility] 12:27:33 Speciali zed medical examinat ion Completed 201310/09/2020 ROUTINE KILN TESTER EXAMINAT ION;Prince rded Elsewher e: No Locat ion: [facility] S ource: EHR Waste Machine Tender vinicio: N Pawan ce ID: [id number] Ten lable Time: 10:30:00 AM Glendy Jones MD [address], [place], [address], [facility] 12:28:07 Antenata l screenin g for malforma tion Completed 201610/09/2020 Encounte r for antenata l screenin g for malforma tions;Re corded Elsewher e: No Locat ion: [facility] S ource: EHR Waste Machine Tender vinicio: N Rosibelti ce ID: [id number] Ten lable Time: 10:30:00 AM Glendy Jones MD [address], [place], [address], [facility] 12:26:39 Gestatio n period, 35 weeks [id number] Completed 201710/09/2020 35 weeks gestatio n of pregnanc y;Record ed Elsewher e: No Locat ion: [facility] S ource: EHR Waste Machine Tender vinicio: N Practi ce ID: [id number] Ten lable Time: 09:45:00 AM Glendy Jones MD [address], [place], [address], [facility] 1 12:27:07 Gestatio n period, 8 weeks [id number] Completed 201610/09/2020 8 weeks gestatio n of pregnanc y;Record ed Elsewher e: No Locat ion: [facility] S ource: EHR Waste Machine Tender vinicio: N Practi ce ID: [id number] Ten lable Time: 01:00:00 PM Glendy Jones MD [address], [place], [address], [facility] 1 12:27:13 Screenin g for malignan t neoplasm of cervix Completed 201210/09/2020 Screenin g for malignan t neoplasm s of the cervix;R ecorded Elsewher e: No Locat ion: [facility] S ource: EHR Waste Machine Tender vinicio: N Rosibelti ce ID: [id number] Ten lable Time: 08:45:00 AM Glendy Jones MD [address], [place], [address], [facility] 1 12:27:56 Uterine size for dates discrepa ncy Completed 201710/09/2020 Uterine size-dmitry e discrepa ncy, third trimeste r;Record ed Elsewher e: No Locat ion: [facility] S ource: EHR Waste Machine Tender vinicio: N Practi ce ID: [id number] Ten lable Time: 11:00:00 AM Glendy Jones MD [address], [place], [address], [facility] 1 12:28:23 Uterine size for dates discrepa ncy Completed 201610/09/2020 Uterine size-dmitry e discrepa ncy, first trimeste r;Record ed Elsewher e: No Locat ion: [facility] a[facility] S ource: EHR Waste Machine Tender vinicio: N Practi ce ID: 0001 Tne lable Time: 01:00:00 PM Glendy Jones MD [address], [place], [address], [facility] [address] 12:28:[address] Concept Completed 201610/09/2020 Encntr for personal injury law specialist exam (general ) (routine ) w/o abn findings ;Recorde d Elsewher e: No Locat ion: [facility] a[facility] S ource: EHR Waste Machine Tender vinicio: N Practi ce ID: [id number] Ten lable Time: 02:30:00 PM Glendy Jones MD [address], [place], [address], [facility] 1 12:28:06 Speciali zed medical examinat ion Completed 201310/09/2020 Other specifie d chlamydi al diseases ;Recorde d Elsewher e: No Locat ion: [facility] S ource: EHR Waste Machine Tender vinicio: N Practi ce ID: [id number] Ten lable Time: 10:30:00 AM Glendy Jones MD [address], [place], [address], [facility] 1 12:28:10 Gestatio n period, 36 weeks [id number] Completed 201710/09/2020 36 weeks gestatio n of pregnanc y;Record ed Elsewher e: No Locat ion: [facility] S ource: EHR Waste Machine Tender vinicio: N Practi ce ID: [id number] Ten lable Time: 09:00:00 AM Glendy Jones MD [address], [place], [address], [facility] 1 12:27:09 Venereal disease screenin g Completed 201310/09/2020 Screenin g examinat ion for venereal disease; Recorded Elsewher e: No Locat ion: [facility] S ource: EHR Waste Machine Tender vinicio: N Practi ce ID: [id number] Ten lable Time: 10:30:00 AM Glendy Jones MD [address], [place], [address], [facility] 1 12:28:26 Female genital organ symptoms [id number] Completed 201010/09/2020 Unspecif ied symptom associat ed with female genital organs;R ecorded Elsewher e: No Locat ion: [facility] S ource: EHR Waste Machine Tender vinicio: N Practi ce ID: [id number] Ten lable Time: 01:30:00 PM Glendy Jones MD [address], [place], [address], [facility] 1 12:26:56 Infectio n screenin g Completed 201510/09/2020 Encounte r for screenin g for oth infec/pa rastc diseases ;Recorde d Elsewher e: No Locat ion: [facility] S ource: EHR Waste Machine Tender vinicio: N Rosibelti ce ID: [id number] Ten lable Time: 01:15:00 PM Glendy Jones MD [address], [place], [address], [facility] [address] 12:27:[address] Concept Completed 201610/09/2020 Encntr for general adult medical exam w/o abnormal findings ;Recorde d Elsewher e: No Locat ion: [facility] S ource: EHR Waste Machine Tender vinicio: N Rosibelti ce ID: [id number] Ten lable Time: 02:30:00 PM Glendy Jones MD [address], [place], [address], [facility] 1 12:28:03 Lochia finding Completed 201710/09/2020 Encounte r for routine postpart um follow-u p;Record ed Elsewher e: No Locat ion: [facility] a[facility] S ource: EHR Waste Machine Tender vinicio: N Rsoibelti ce ID: 0001 Ten lable Time: 09:00:[address] MD [address], [place], [address], [facility] 1 12:27:42 Antenata l screenin g Completed 201610/09/2020 Encounte r for other antenata l screenin g follow-u p;Record ed Elsewher e: No Locat ion: [facility] S ource: EHR Waste Machine Tender vinicio: N Rosibelti ce ID: [id number] Ten lable Time: 10:15:00 AM Glendy Jones MD [address], [place], [address], [facility] 1 12:26:37 Non-prot einuric hyperten guadalupe of pregnanc y [id number] Completed 201710/09/2020 Gestatio nal [pregnan cy-induc ed] hyperten guadalupe without signific ant proteinu tim, complica ting the puerperi um;Recor ded Elsewher e: No Locat ion: [facility] S ource: EHR Waste Machine Tender vinicio: N Rosibelti ce ID: [id number] Ten lable Time: 08:45:00 AM Glendy Jones MD [address], [place], [address], [facility] 1 12:27:45 Removal of intraute rine device Completed 201610/09/2020 Encounte r for removal of intraute rine contrace ptive device;R ecorded Elsewher e: No Locat ion: [facility] S ource: EHR Waste Machine Tender vinicio: N Rosibelti ce ID: 0001 Ten lable Time: 09:15:[address] MD [address], [place], [address], [facility] 1 12:27:55 Syphilis test finding [id number] Completed 201510/09/2020 Encntr screen for infectio ns w sexl mode of transmis s;Record ed Elsewher e: No Locat ion: [facility] S ource: EHR Waste Machine Tender vinicio: N Practi ce ID: [id number] Ten lable Time: 01:15:00 PM Glendy Jones MD [address], [place], [address], [facility] 1 12:28:16 Uses IUD (intraut erine device) contrace ption [id number] Completed 201011/26/2020 Surveill ance of intraute rine contrace ptive device;R ecorded Elsewher e: No Locat ion: [facility] S ource: EHR Waste Machine Tender vinicio: N Practi ce ID: 0001 Ten lable Time: 01:30:00 PM [facility] 17:24:38 Pregnanc y detectio n examinat ion Completed 201610/09/2020 Encounte r for pregnanc y test, result positive ;Recorde d Elsewher e: No Locat ion: [facility] S ource: EHR Waste Machine Tender vinicio: N Rosibelti ce ID: [id number] Ten lable Time: 08:30:00 AM Glendy Jones MD [address], [place], [address], [facility] 1 12:27:49 Insertio n of subcutan eous contrace ptive Completed 201010/09/2020 Insertio n of implanta ble subderma l contrace ptive;Pr actice ID: [id number] Glendy Jones MD [address], [place], [address], [facility] 1 12:27:23 Subcutan eous contrace ptive implant present [id number] Completed 201010/09/2020 Surveill ance of implanta ble subderma l contrace ptive;Pr actice ID: [id number] Glendy Jones MD [address], [place], [address], [facility] 12:28:14 Secondar y amenorrh ea 692735187 Completed 201610/09/2020 Secondar y amenorrh ea;Pract ice ID: 0001 Glendy Jones MD [address], [place], [address], [facility] 12:27:59 Single live [id number] Completed 201710/09/2020 Single live ;Pr actice ID: [id number] Glendy Jones MD [address], [place], [address], [facility] 12:28:33 Gestatio n period, 37 weeks [id number] Completed 201710/09/2020 37 weeks gestatio n of pregnanc y;Practi ce ID: 0001 Glendy Jones MD [address], [place], [address], [facility] 12:27:11 Problem Notes None recorded. Procedures Surgical History Date Name Laterality Status Provider Name and Address Organization Details Recorded Time 08/25/19 18 Tubal Ligation completed [facility] 10/09/2020 09:39:05 09/09/19 17 Date of Last Pap Smear completed [facility] 10/09/2020 09:41:03 04/26/19 09 tonsillectomy completed [facility] 10/09/2020 09:39:17 procedure on hip completed [facility] 10/09/2020 11:59:49 Imaging Results None recorded. [...] Prescrib ed Elsewher e: Yes Loca tion: [facility] M odify By: [email or web address] manuely Princess r DateTime : 11/28/19 14 10:30:00 AM [...] T PO Q 8 H PRN P 06/16 /2021 completed Not Available Not Available Not Available [...] Elsewher e: No Locat ion: [facility] odify By: leslie tsang DateTime : 09/03/19 12 10:29:15 AM Not Available Not Available Not Available Zoloft 50 mg tablet TAKE 1 TABLET BY ORAL ROUTE EVERY DAY 10/09 completed Prescrib ed Elsewher e: No Locat ion: [facility] odify By: bchappel l Latonya ter DateTime : 09/30/19 18 02:27:20 PM Not [...] Elsewher e: No Locat ion: [facility] odify By: leslie tsang DateTime : 08/31/19 12 08:45:00 AM Not Available Not Available Not Available losartan 100 mg tablet take 1 tablet by oral route every day 07/23 completed Prescrib ed Elsewher e: Yes Loca tion: [facility] odify By: ty bhatt DateTime : 11/28/19 [...] Prescrib ed Elsewher e: No Locat ion: [facility] odify By: andrey tsang DateTime : 09/24/19 09:15:00 AM Not Available Not Available Not Available [employer]IST-PNV-DH A 28 mg iron-1 mg-200 mg capsule take 1 capsule by oral route every day 09/17 completed Prescrib ed Elsewher e: No Locat ion: [facility] odify By: amkzoltan kaminski DateTime : 01/13/20 11:38:44 AM Not Available Not Available Not Available COVID-19 test specimen collectio n TEST DIRECTED TODAY active Not Available Not Available No t Available Vitals Date Recorded Body height Body mass index (BMI) Body weight Systolic blood pressure Diastolic blood pressure Provider Name and Address Organization Details Last Updated DateTime 10/09/2020 167.64 cm 57.6 kg/m2 698061.4 8 g 145 mm[Hg] 87 mm[Hg] Aparna [facility] 11:56:30 Date Recorded Body height Body mass index (BMI) Body weight Systolic blood pressure Diastolic blood pressure Provider Name and Address Organization Details Last Updated DateTime 11/26/2020 167.64 cm 55.7 kg/m2 353079.3 7 g 132 mm[Hg] 88 mm[Hg] Aparna Shah [facility] 17:24:06 Social History Question Answer Notes LastModified by Organizat ion Details LastModified Time Tobacco Smoking Status Never Smoker Jorgito pickett [facility] 11/26/2020 17:02:32 What Is Your Level [...] (Food, seasonal, environmental ) N Other N Drug/Latex Allergies/Reactions N Blood Transfusion N Breast Cancer N Dermatologic Disorders N Lung Disease N Defects or Inherited Disease N Breast Problem N Gestational Diabetes N Hematologic disorders N Anesthesia Complications N History of STI N Deep Vein Thrombosis N Polycystic ovary syndrome N Anxiety Disorder N Autoimmune disease N Arthritis N Polyps N Infertility N Acid Reflux (GERD) N History of abnormal pap N Cancer N Varicosities N Stroke N Neurologic/Epilepsy N Endometriosis N High Cholesterol N Fibromyalgia N Headaches N Kidney Disease N Heart Problems N Thyroid Problems N Kidney or Bladder Problems N GI Problems N Eating Disorder [...] Diagnosis/Indication Diagnosis SNOMED-CT Code Diagnosis ICD10 Code Diagnosis Note [id number] Glendy Jones MD [place] [facility] [address] [address] 10/09/2020 11:41:44 10/09/2020 13:45:27 Secondary oligomenorrhea 05664488 N91.4 Body mass index 40+ - severely obese 837846844 Z68.43 Loss of hair 819255104 L 65.9 Female hirsutism 2532403 9 L68.0 Night sweats 36084618 R6 1 [id number] Glendy Jones MD [facility] [address] [address] 11/26/2020 17:02:03 11/28/2020 12:10:13 Gynecologic examination 20146374 Z01.419 Anovulation 34495031 N97 .0 Body mass index 40+ - severely obese 801647871 Z68.43 Health Concerns Section Related Observation LastModified by Organization Detai ls LastModified Time None Recorded Concern Status LastModified by Organization Details LastModified Time None Recorded Advance Directives Directive None Recorded Payers Encounter Date Sequence Insurance Name Policy Number Policy Phelps Covered Member ID Phelps Member ID Guarantor Name 10/09/2020 1 [facility] PRIOR TO 10/24/2020 (MEDICAID REPLACEMENT - HMO) Lynn Gonzalez [id number] Lynn Gonzalez 11/26/2020 1 [facility] ON OR AFTER 10/24/20 (MEDICAID REPLACEMENT - HMO) Lynn Gonzalez [id number] Lynn Gonzalez Notes Date Note Type Note [...] WWE: 2017 Depression:stabl e on meds Domestic violence:denies Glendy Jones, MD [address], [place], [address], [facility] 10/09/2020 13:44:59 11/26/2020 text/html Patient is a 35yo who presents for an annual exam. sEEN IN september FOR irregular menses. All labs WNL. tubes tied. LMP now 11/13. Has lost 20# in one month with WW. last pap-2017 sexually activye- contraception-tu bal seatbelts-y exercise-y depression-denie s domestic violence-denies tobacco-n concerns-n Glendy Jones MD [address], [place], [address], [facility] 11/27/2020 08:19:29 OBGyn Episode Ob Episode Information Episode Created Date Number of Fetuses Patient Bloodtype Patient rh Status Prepregnancy Weight lbs Domestic Partner Domestic Partner Phone Father Name Food Safety Officer Status 10/10/19 21 1 CLOSED Fetus Data First Name Last Name Admitted to NICU Weight (g) Sex Living Outcome Pediatric Complications Fetus ID Race Codes Race Delivery Type 3175.14 4 M Full Term [id number] Vaginal Delivery Matt Calculation Initial Matt Date Initial Exam Date Initial Exam Provider Initial Ultrasound Date Last Menstrual Period Date Ultra Sound Weeks Gestation 0 Eighteen To Twenty Week Matt Update [...] Domestic Partner Domestic Partner Phone Father Name Food Safety Officer Status 10/10/19 21 1 CLOSED Fetus Data First Name Last Name Admitted to NICU Weight (g) Sex Living Outcome Pediatric Complications Fetus ID Race Codes Race Delivery Type 3259.96 5704 F Full Term [id number] Vaginal Delivery Matt Calculation Initial Matt Date Initial Exam Date Initial Exam Provider Initial Ultrasound Date Last Menstrual Period Date Ultra Sound Weeks Gestation 0 Eighteen To Twenty Week Matt Update [...]
--- OUTSIDE RECORDS SUMMARY | 2024-07-28 18:01 | XMS_ITS | Continuity of Care Document ---
Author Organization Formerly [facility] Address [address] [address] Insurance Providers Payer Plan Claims Address Claims Phone Policy Number Group Number Relation Employer Guarantor Name Guarantor Guarantor Address Guarantor Phone [place] guzmán [facility] [id number] Self Lynn Gonzalez [address], [place], [place] [id number] [facility] [id number] Self Lynn Gonzalez [address], [place] [address] Self Pay [id number] Self Lynn Gonzalez [address], [place] [address] Problems Unknown Problems Results Test Value / Unit Interpretation Reference Ran Comp. Metabolic Panel (14)[[id number]] Collected: 05/04/2023 05:11 PM Specimen Received: 05/04/2023 05:00 AM Source: [facility] Glucose [412529] 89 mg/dL 70-99 mg/dL BUN [237251] 11 mg/dL 6-20 mg/dL Creatinine [594892] 0.63 mg/dL 0.57-1.0 0 mg/dL eGFR [162249] 116 mL/min/1.73 >59 mL/min/ 1.73 BUN/Creatinine Ratio [327914] 17 9-23 Sodium [073350] 137 mmol/L 134-144 mmol /L Potassium [757166] 4.9 mmol/L 3.5-5.2 m mol/L Chloride [135917] 99 mmol/L 96-106 mmo l/L Carbon Dioxide, Total [697000] 26 mmol/L 20-29 mmol/L Calcium [624507] 9.2 mg/dL 8.7-10.2 mg /dL Protein, Total [078328] 7.3 g/dL 6.0- 8.5 g/dL Albumin [310072] 4.0 g/dL 3.9-4.9 g/d L Globulin, Total [132723] 3.3 g/dL 1.5 -4.5 g/dL A/G Ratio [363858] 1.2 1.2-2.2 Bilirubin, Total [123195] 0.4 mg/dL 0. 0-1.2 mg/dL Alkaline Phosphatase [587079] 64 IU/L 44-121 IU/L AST (SGOT) [592455] 26 IU/L 0-40 IU/ L ALT (SGPT) [305693] 28 IU/L 0-32 IU/ L Lipid Panel[387947] Collected: 05/04/2023 05:11 PM Specimen Received: 05/04/2023 05:00 AM Source: [facility] Cholesterol, Total [047934] 199 mg/dL 100-199 mg/dL Triglycerides [768602] 139 mg/dL 0-149 mg/dL HDL Cholesterol [657629] 40 mg/dL >39 mg/dL VLDL Cholesterol Aba [571244] 25 mg/dL 5-40 mg/dL LDL Chol Calc (NIH) [313256] 134 mg/dL H 0-99 mg/dL Hemoglobin A1c[334811] Collected: 05/04/2023 05:11 PM Specimen Received: 05/04/2023 05:00 AM Source: [facility] Hemoglobin A1c [009741] 5.3 % 4.8- 5.6 % . Prediabetes: 5.7 - 6.4 Sudha betes: >6.4 Glycemic control for adults with diabetes: 7.0 Allergies, adverse reactions, alerts No known allergies and adverse reactions Medications No administered medications reported Vital Signs No vital signs reported Social History No smoking Hx information available
--- OUTSIDE RECORDS SUMMARY | 2024-07-28 18:01 | XMS_ITS | Data Portability ---
Author Organization [facility], Main Office Address [address] [place] [address] Assessment No assessment recorded. Plan of Treatment Reminders Order Date Submit Date Provider Last Modified By Organization Details Last Modified Time Details Appointments None recorded. Lab lipid panel, serum 2022 023 [facility] (Lab), [address] [place], [address], 3 21:43:17 TSH, serum, reflex free T4 [address] (Lab), [address] [place], [address], 3 08:14:30 CBC w/ diff [address] (Lab), [address] [place], [address], 3 08:18:06 CMP, serum or plasma 2022 023 [facility] (Lab), [address] [place], [address], 3 21:43:28 HbA1c (hemoglobin A1c), blood [address] (Lab), [address] [place], [address], 3 08:14:30 Referral None recorded. Procedures None recorded. Surgeries None recorded. Imaging None recorded. Medication Orders doxycycline hyclate 100 mg capsule 2022 023 [email or web address] [id number], [address] [place], [place], [id number], 21:18:25 buspirone 5 mg tablet 2022 023 MONICA [facility] #[id number], [address], [place], [id number], 16:00:07 Patient TargetsNo targets recorded. Patient Instructions Encounter Date Encounter Id Patient Instructions Last Modified By Organization Details Last Modified Time 10/16/2022 [id number] mo fu weight, asthma htn, labs [email or web address] Not available 10/16/2022 16:04:21 Reason for Referral None Reported. Results Created Date Observation Date Name Description Value Unit Range Abnormal Flag Note LastModifiedBy Organization Detail LastModifiedTime 10/21/1910/20/2022 CBC/C OMPLE TE BLD COUNT W/DIF F white blood cells 6.7 x10'3 /uL 4.2-10 .8 Not Available [facility] (Lab) [address] [place], [address], 10/20/2022 21:00:59 10/21/1910/20/2022 CBC/C OMPLE TE BLD COUNT W/DIF F red blood cells 4.42 x10'6 /uL 3.80-5 .20 Not Available [facility] (Lab) [address] [place], [address], 10/20/2022 21:00:59 10/21/1910/20/2022 CBC/C OMPLE TE BLD COUNT W/DIF F hemoglobin 12.7 g/dL 12.0-1 5.6 Not Available [facility] (Lab) [address] [place], [address], 10/20/2022 21:00:59 10/21/192023 CBC/C OMPLE TE BLD COUNT W/DIF F hematocrit 38.5 % 35.7-4 5.7 Not Available [facility] (Lab) [address] [place], [address], 10/20/2022 21:00:59 10/21/19 23 10/20/2022 CBC/C OMPLE TE BLD COUNT W/DIF F mean red cell volume 87.1 fL 82.0-9 9.0 Not Available [facility] (Lab) [address] [place], [address], 10/20/2022 21:00:59 10/21/19 23 10/20/2022 CBC/C OMPLE TE BLD COUNT W/DIF F mean red cell hemoglobin 28.7 pg 27.0-3 3.0 Not Available [facility] (Lab) [address] [place], [address], 10/20/2022 21:00:59 10/21/19 23 10/20/2022 CBC/C OMPLE TE BLD COUNT W/DIF F mean RBC HGB concentratio n 33.0 g/dL 31.0-3 6.0 Not Available [facility] (Lab) [address] [place], [address], 10/20/2022 21:00:59 10/21/19 23 10/20/2022 CBC/C OMPLE TE BLD COUNT W/DIF F red cell distribution width 14.2 % 11.8-1 5.5 Not Available [facility] (Lab) [address] [place], [address], 10/20/2022 21:00:59 10/21/19 23 10/20/2022 CBC/C OMPLE TE BLD COUNT W/DIF F platelets 202 x10'3 /uL 150-40 0 Not Available [facility] (Lab) [address] [place], [address], 10/20/2022 21:00:59 10/21/19 23 10/20/2022 CBC/C OMPLE TE BLD COUNT W/DIF F mean platelet volume 10.6 fL 9.0-12 .4 Not Available [facility] (Lab) [address] [place], [address], 10/20/2022 21:00:59 10/21/19 23 10/20/2022 CBC/C OMPLE TE BLD COUNT W/DIF F neutrophils 55.8 % 39.0-7 2.0 Not Available [facility] (Lab) [address] [place], [address], 10/20/2022 21:00:59 10/21/19 23 10/20/2022 CBC/C OMPLE TE BLD COUNT W/DIF F lymphocytes 25.0 % 16.0-4 7.0 Not Available [facility] (Lab) [address] [place], [address], 10/20/2022 21:00:59 10/21/19 23 10/20/2022 CBC/C OMPLE TE BLD COUNT W/DIF F monocytes 8.6 % 5.0-12 .0 Not Available [facility] (Lab) [address] [place], [address], 10/20/2022 21:00:59 10/21/19 23 10/20/2022 CBC/C OMPLE TE BLD COUNT W/DIF F eosinophils 9.5 % 1.0-7. 0 high Not Available [facility] (Lab) [address] [place], [address], 10/20/2022 21:00:59 10/21/19 23 10/20/2022 CBC/C OMPLE TE BLD COUNT W/DIF F basophils 0.7 % 0.0-2. 0 Not Available [facility] (Lab) [address] [place], [address], 10/20/2022 21:00:59 10/21/19 23 10/20/2022 CBC/C OMPLE TE BLD COUNT W/DIF F immature granulocytes 0.4 % 0.00-0 .50 Not Available [facility] (Lab) [address] [place], [address], 10/20/2022 21:00:59 10/21/19 23 10/20/2022 CBC/C OMPLE TE BLD COUNT W/DIF F neutrophils, absolute count 3.73 x10'3 /uL 1.5-8. 0 Not Available [facility] (Lab) [address] [place], [address], 10/20/2022 21:00:59 10/21/19 23 10/20/2022 CBC/C OMPLE TE BLD COUNT W/DIF F lymphocytes, absolute count 1.68 x10'3 /uL 1.07-3 .43 Not Available [facility] (Lab) [address] [place], [address], 10/20/2022 21:00:59 10/21/19 23 10/20/2022 CBC/C OMPLE TE BLD COUNT W/DIF F monocytes, absolute count 0.58 x10'3 /uL 0.29-0 .99 Not Available [facility] (Lab) [address] [place], [address], 10/20/2022 21:00:59 10/21/19 23 10/20/2022 CBC/C OMPLE TE BLD COUNT W/DIF F eosinophils, absolute count 0.64 x10'3 /uL 0.02-0 .53 high Not Available [facility] (Lab) [address] [place], [address], 10/20/2022 21:00:59 10/21/19 23 10/20/2022 CBC/C OMPLE TE BLD COUNT W/DIF F basophils, absolute count 0.05 x10'3 /uL 0.01-0 .08 Not Available [facility] (Lab) [address] [place], [address], 10/20/2022 21:00:59 10/21/1910/20/2022 CBC/C OMPLE TE BLD COUNT W/DIF F immature granulocytes ,absolute 0.03 x10'3 /uL 0.00-0 .05 Not Available [facility] (Lab) [address] [place], [address], 10/20/2022 21:00:59 10/21/19 23 10/20/2022 CBC/C OMPLE TE BLD COUNT W/DIF F nucleated red blood cells 0.0 % -0 Not Available [facility] (Lab) [address] [place], [address], 10/20/2022 21:00:59 10/21/19 23 10/20/2022 CBC/C OMPLE TE BLD COUNT W/DIF F NRBC# 0.00 x10'3 /uL Not Available [facility] (Lab) [address] [place], [address], 10/20/2022 21:00:59 10/21/19 23 10/20/2022 LIPID PANEL cholesterol 161 mg/dL 140-19 9 NIH MIA NSUS RECOM MENDA TION FOR VIDAL STERO L: ADULT CHILD LOW RISK: <200 <170 BORDE RLINE : <200- 239 ----- HIGH RISK: >240 >200 Not Available [facility] (Lab) [address] [place], [address], 10/20/2022 21:43:17 10/21/1910/20/2022 LIPID PANEL triglyceride s 149 mg/dL 0-150 NIH MIA NSUS REPOR T RECOM MENDA TION FOR TRIGL YCERI PARAMJIT: ADULT CHILD LOW RISK: <150 ----- BODER LINE: 150-1 99 ----- HIGH RISK: >200 ----- Not Available [facility] (Lab) [address] [place], [address], 10/20/2022 21:43:17 10/21/19 23 10/20/2022 LIPID PANEL HDL cholesterol 37 mg/dL 40- low Not Available [facility] (Lab) [address] [place], [address], 10/20/2022 21:43:17 10/21/19 23 10/20/2022 LIPID PANEL [...] WILL NOT BE REPOR LIBAN. Not Available [facility] (Lab) [address] [place], [address], 10/20/2022 21:43:17 10/21/19 23 10/20/2022 COMPR EHENS MICHAEL METAB OLIC PANEL sodium 136 mmol/ L 137-14 5 low Not Available [facility] (Lab) [address] [place], [address], 10/20/2022 21:43:28 10/21/19 23 10/20/2022 COMPR EHENS MICHAEL METAB OLIC PANEL potassium 4.3 mmol/ L 3.5-5. 1 Not Available [facility] (Lab) [address] [place], [address], 10/20/2022 21:43:28 10/21/19 23 10/20/2022 COMPR EHENS MICHAEL METAB OLIC PANEL chloride 101 mmol/ L 98-107 Not Available [facility] (Lab) [address] [place], [address], 10/20/2022 21:43:28 10/21/19 23 10/20/2022 COMPR EHENS MICHAEL METAB OLIC PANEL carbon dioxide 27 mmol/ L 22-30 Not Available [facility] (Lab) [address] [place], [address], 10/20/2022 21:43:28 10/21/19 23 10/20/2022 COMPR EHENS MICHAEL METAB OLIC PANEL anion gap 12.3 mmol/ L 14-22 low Not Available [facility] (Lab) [address] [place], [address], 10/20/2022 21:43:28 10/21/19 23 10/20/2022 COMPR EHENS MICHAEL METAB OLIC PANEL glucose 93 mg/dL 70-99 Not Available [facility] (Lab) [address] [place], [address], 10/20/2022 21:43:28 10/21/19 23 10/20/2022 COMPR EHENS MICHAEL METAB OLIC PANEL BUN 11 mg/dL 8-19 Not Available [facility] (Lab) [address] [place], [address], 10/20/2022 21:43:28 10/21/19 23 10/20/2022 COMPR EHENS MICHAEL METAB OLIC PANEL creatinine 0.58 mg/dL 0.66-1 .25 low Not Available [facility] (Lab) [address] [place], [address], 10/20/2022 21:43:28 10/21/19 23 10/20/2022 COMPR EHENS MICHAEL METAB OLIC PANEL GFR >60 Refer ence Range : [place] ge GFR Healt hy Adult : >60 [...] calcu lator is avail able on the [facility] websi te: [email or web address] :[email or web address] [email or web address]/pr ofess ional s/kdo qi/gf r_cal culat or Not Available [facility] (Lab) [address] [place], [address], 10/20/2022 21:43:28 10/21/19 23 10/20/2022 COMPR EHENS MICHAEL METAB OLIC PANEL alkaline phosphatase 56 U/L 38-126 Not Available [facility] (Lab) [address] [place], [address], 10/20/2022 21:43:28 10/21/19 23 10/20/2022 COMPR EHENS MICHAEL METAB OLIC PANEL alanine aminotransfe rase 36 U/L 0-35 high Not Available [facility] (Lab) [address] [place], [address], 10/20/2022 21:43:28 10/21/19 23 10/20/2022 COMPR EHENS MICHAEL METAB OLIC PANEL aspartate aminotransfe rase 34 U/L 15-37 Not Available [facility] (Lab) [address] [place], [address], 10/20/2022 21:43:28 10/21/19 23 10/20/2022 COMPR EHENS MICHAEL METAB OLIC PANEL bilirubin, total 0.40 mg/dL 0.20-1 .30 Not Available [facility] (Lab) [address] [facility] [place] [place], [address], 10/20/2022 21:43:28 10/21/19 23 10/20/2022 COMPR EHENS MICHAEL METAB OLIC PANEL calcium 8.7 mg/dL 8.4-10 .2 Not Available [facility] (Lab) [address] [place], [address], 10/20/2022 21:43:28 10/21/19 23 10/20/2022 COMPR EHENS MICHAEL METAB OLIC PANEL total protein 7.1 g/dL 6.3-8. 2 Not Available [facility] (Lab) [address] [place], [address], 10/20/2022 21:43:28 10/21/19 23 10/20/2022 COMPR EHENS MICHAEL METAB OLIC PANEL albumin 3.6 g/dL 3.4-5. 0 Not Available [facility] (Lab) [address] [place], [address], 10/20/2022 21:43:28 10/21/19 23 10/20/2022 COMPR EHENS MICHAEL METAB OLIC PANEL globulin 3.5 g/dL 2.6-4. 2 Not Available [facility] (Lab) [address] [place], [address], 10/20/2022 21:43:28 10/21/19 23 10/20/2022 COMPR EHENS MICHAEL METAB OLIC PANEL A/G ratio 1.0 ratio 1.0-2. 0 Not Available [facility] (Lab) [address] [place], [address], 10/20/2022 21:43:28 10/21/19 23 10/20/2022 HEMOG LOBIN A1C HA1C 5.4 % 4.0-6. 0 Diabe clarisa Scree gil Crite tim: <5.7% Consi stent with absen ce of diabe clarisa 5.7-6 .4% Consi stent with incre ased risk for diabe clarisa (pred iabet es) >OR=6 .5% Consi stent with diabe clarisa REFER ENCE: Diabe clarisa Care 2016, 39(Davis ppl.1 ):s13 -s22 Not Available [facility] (Lab) [address] [place], [address], 10/20/2022 22:03:40 10/21/19 23 10/20/2022 TSH W/REF RAUL FT4 TSH with reflex free T4 0.871 uIU/m L 0.465- 4.680 Not Available [facility] (Lab) [address] [place], [address], 10/20/2022 22:10:35 Result Notes None recorded. Problems Name Problem SNOMED Code Status Onset Date Resolution Date Notes Provider Name and Address Organization Details Recorded Time Tobacco user 567156781 Active 2017 Not Available [facility] 3 01:25:17 Constipation 26890522 Active 2020 Not Available [facility] 3 01:25:17 Insomnia 632780749 Active 2018 Not Available [facility] 3 01:25:17 Anxiety disorder 784651073 Active 2019 Not Available [facility] 3 01:25:17 Mixed anxiety and depressive disorder 046886345 Active 2017 Not Available [facility] 3 01:25:17 Morbid obesity 570557317 Active 2021 Not Available [facility] 3 01:25:17 Ankle pain 421725214 Active 2019 Not Available [facility] 3 01:25:17 Bronchitis 69193800 Active 2019 Not Available [facility] 3 01:25:17 Tachycardia 5342079 Active 2017 Not Available [facility] 3 01:25:17 Depressive disorder 42933985 Active 2019 Not Available [facility] 3 01:25:18 Sinusitis 77532070 Active 2021 Not Available [facility] 3 01:25:18 Elevated blood-pressur e reading without diagnosis of hypertension 189266368 Active 2017 Not Available [facility] 3 01:25:18 Migraine 84115754 Active 2019 Not Available [facility] 3 01:25:18 Contact dermatitis 01754815 Active 2017 Not Available [facility] 3 01:25:18 Obese 556461151 Active 2017 Not Available [facility] 3 01:25:18 Obesity 992124012 Active 2019 [facility] Available [facility] 3 01:25:18 Eczema 32182611 Active 2021 Not Available [facility] 3 01:25:19 Sprain of ankle 74698359 Active 2019 Not Available [facility] 3 01:25:19 Anxiety 37084682 Active 2018 Not Available [facility] 3 01:25:19 Cough 56175282 Active 2021 Not Available [facility] 3 01:25:19 Wheezing 58014978 Active 2018 Not Available [facility] 3 01:25:19 Essential hypertension 27426387 Active 2017 Not Available [facility] 3 01:25:19 Allergic rhinitis 01846996 Active 2018 Not Available [facility] 3 01:25:19 Sleep apnea 28769626 Active 2018 Not Available [facility] 3 01:25:20 Dental caries 39394750 Active 2019 Not Available [facility] 3 01:25:20 Moderate persistent asthma 528456225 Active 2022 Cheyenne Smith NP [address] [facility], [facility] [address], [place], [address] , [facility] 3 15:55:06 Seasonal allergic rhinitis 066572968 Active 2022 Cheyenne Smith NP [address] [facility] [facility] [address], [place], [address] , [facility] [employer] [facility] 3 15:55:43 Low back pain 163219046 Active 2022 Cheyenne Smith NP [address] [facility], [facility] [address], [place], [address] , [facility] [employer] [facility] 3 15:55:49 Acute sinusitis 11579780 Active 2022 Cheyenne Smith NP [address] [facility], [facility] [address], [place], [address] , [facility] [employer] [facility] 3 15:59:49 Notes:allergies Problem Notes None [...] % 98 % 92 /min 98 [degF] 152325. 32 g 142 mm[Hg] 94 mm[Hg] Not Available [facility] 3 01:15:51 Date Recorded Body height Body mass index (BMI) Body weight Body temperature Heart rate Respiratory rate Oxygen saturation Oxygen saturation in Arterial blood by Pulse oximetry Pain severity - 0-10 verbal numeric rating [Score] - Reported Systolic blood pressure Diastolic blood pressure Provider Name and Address Organization Details Last Updated DateTime 3 167.64 cm 59 kg/m2 693874. 32 g 97.1 [degF] 90 /min 20 /min 93 % 93 % 4 148 mm[Hg] 90 mm[Hg] Cheyenne Hatch RN [place] [employer] 3 15:32:30 Social History Question Answer Notes LastModified by Organizat ion Details LastModified Time Tobacco Smoking Status Former Smoker Not Available [facility] 06/24/2022 01:07:08 Do You Have An Advance [...] COVID-19 While That Case Was Ill? No [id number] Information not available 06/24/2022 In The 14 Days Before Symptom Onset, Have You Had Close Contact With A Person Who Is Under Investigation For COVID-19 While That Person Was Ill? No [id number] Information not available 06/24/2022 Are You Currently [...] Or The Highest Degree You Have Received? 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 No Information not available 10/16/2022 How Many [...] Used Smokeless Tobacco? Never Used Smokeless Tobacco [id number] Information not available 06/24/2022 Are There Any Smokers In Your House? No Information not available 10/16/2022 Do You Participate In Social Media? Yes Information not available 10/16/2022 Do You Feel Stressed (tense, Restless, Nervous, Or Anxious, Or Unable To Sleep At Night)? [id number] Information not available 10/16/2022 Do You Use [...] DISEASE/DISORDER N HEART ARRHYTHMIA N INSOMNIA N COPD N RADIATION / CHEMOTHERAPY N HIGH CHOLESTEROL / HYPERLIPIDEMIA N Other # 2 N HYPERTHYROIDISM N BLOOD DISEASES N NEUROLOGICAL PROBLEMS N SURGERY N EDEMA N EAR OR HEARING PROBLEMS N CHRONIC PAIN SYNDROME N HYPOTHYROIDISM N DEPRESSION (INCLUDING POST ) N BACK / NECK PROBLEMS N HAVE YOU BEEN HOSPITALIZED OR SEEN IN [facility] IN THE PAST YEAR ? N STROKE/TIA N ULCERS N BENIGN PROSTATIC HYPERPLASIA N BREAST PROBLEMS N MYOCARDIAL INFARCTION N OBESITY Y GERD/NAUSEA N ANEURYSM N CORONARY ARTERY DISEASE (CAD) N INPATIENT PSYCH CARE N ARTHRITIS N USE OF BLOOD THINNERS N NO SIGNIFICANT PAST MEDICAL HISTORY N DIABETES, TYPE N GASTROINTESTINAL DISORDER N PARATHYROID DISEASE N ENT N SEASONAL ALLERGIES Y HEARTBURN / REFLUX N GASTROINTESTINAL BLEEDING N ASTHMA Y HEPATITIS / LIVER DISEASE N PULMONARY DISEASE N SLEEP DISORDER N ALZHEIMER'S DISEASE N FATIGUE N HEADACHES/MIGRAINES N SEIZURES/EPILEPSY N GI PROBLEMS N CHF N Low Testosterone N DIZZINESS N HEART DISEASE/HEART PROBLEMS N AIDS/HIV N KIDNEY DISEASE N FRACTURES N LIVER DISEASE N HYPERTENSION Y CANCER: SPECIFY N ANXIETY DISORDER Y BLOOD TRANSFUSION N ANESTHESIA COMPLICATIONS N ANEMIA/BLOOD DISORDER N CHRONIC EAR INFECTIONS N ATRIAL FIBRILLATION [...] SNOMED-CT Code Diagnosis ICD10 Code Diagnosis Note [id number] [facility] [place] [address] [place] [address] 07/10/2020 00:00:00 07/10/2020 14:36:26 [id number] [facility] [address] [address] 08/14/2020 00:00:00 08/14/2020 16:30:11 [id number] [address] 03/13/2021 00:00:00 03/13/2021 13:07:21 [id number] [facility] [address] 10/16/2021 00:00:00 10/16/2021 17:51:54 [id number] [facility]_[address] [address] 01/29/2022 00:00:00 01/29/2022 16:49:[id number] [address] 03/27/2022 00:00:00 03/27/2022 13:47:15 [id number] Cheyenne Smith NP [facility]_[address] [address] 10/16/2022 15:19:44 10/20/2022 11:08:56 Moderate persistent asthma 820164299 J45.40 Symbicort bidAlbuter ol inh prnAlbuter ol neb prn. Morbid obesity 934363821 E66.01 Diet and exercise encouraged and recommende d. Essential hypertension 01095271 I10 Lisinopril 20 mg po daily.<2 gm sodium diet. Seasonal a llergic rhinitis 757817387 J30.2 flonase and antihistam ine prn. Low back pain 734438484 M54.50 Ibuprofen 800 mg po tid prn. Constipation 75676284 K5 9.00 miralax prn. Stay hydrated with water and stay active. Increase fiber.Docu sate sodium daily. Migraine 45323396 G43.90 9 sumatripta n 100 mg prn. Mixed anxi ety and depressive disorder 624052645 F41.8 escitalopr am 20 mg po daily.Add on buspar 5 mg po bid. Acute sinusitis 21790507 J01.90 doxy. Could be cause of asthma flare. Hyperlipid emia screening 753692116 Z13.220 Diabetes m ellitus screening 372624643 Z13.1 Thyroid di sorder screening 113960590 Z13.29 [id number] Cheyenne Smith NP [facility] [address] 10/20/2022 11:10:39 10/20/2022 11:40:58 Health Concerns Section Related Observation LastModified by Organization Detai ls LastModified Time None Recorded Concern Status LastModified by Organization Details LastModified Time None Recorded Advance Directives Directive N: Payers Encounter Date Sequence Insurance Name Policy Number Policy Phelps Covered Member ID Phelps Member ID Guarantor Name 10/16/2022 1 [facility] - DOS ON OR AFTER 20 (MEDICAID REPLACEMENT - HMO) Lynn Dominguez Gonzalez [id number] Lynn Dominguez Gonzalez 10/20/2022 1 [facility] - DOS ON OR AFTER 20 (MEDICAID REPLACEMENT - HMO) Lynn Gonzalez [id number] Lynn Dominguez Gonzalez Notes Date Note Type Note Provider [...] are heavy, but not as bad. 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 Cheyenne Smith NP [address] [facility] [address], [place], [address], [facility] [employer] 10/20/2022 21:21:26 OBGyn Episode No OBEpisode recorded.
--- OUTSIDE RECORDS SUMMARY | 2024-07-28 18:01 | XMS_ITS | Clinical Summary ---
Author Organization [facility] Address [address] [place] [address] Care Team Providers Care [employer] Specialist Name Role Phone Murtaza Barrett MD [...] 2015 COVID-19 Vaccine (2023-2 5 season) 2023 HPV Vaccines Aged Out No longer eligi ble based on patient's age to complete this topic Meningococcal B Vaccine Aged Out No l onger eligible based on patient's age to complete [...] age to complete this topic Care Teams [employer] Specialist Relationship Specialty Start Date End Date Murtaza Barrett MD PCP - General 08/19/16
--- OUTSIDE RECORDS SUMMARY | 2024-07-28 18:01 | XMS_ITS | Continuity of Care Document ---
Author Organization [facility] Address [address] [place] [address] Phone Care Team Providers Care Cop Examiner Name Role Phone Baltazar Garza MD Unavailable Unavailable Allergies, Adverse Reactions, Alerts Substance Reaction Status Criticality No Known Allergies Active No Inform ation Medications Medication Instructions Dosage Effective Dates (start - stop) Status Comments Adderall 20 mg tablet take 1 tablet (20MG) by oral route every day before breakfast 20 MG - Active Vicodin 5 mg-500 mg tablet take 1 tablet by oral route every 4 - 6 hours as needed for pain - Active avoid driving or operate machines amoxicillin 875 mg tablet take 1 tablet (875MG) by oral route every 12 hours 875 MG - Active losartan 100 mg tablet take 1 tablet (100MG) by oral route every day 100 MG - Active Procedures Procedure Date OFFICE/OUTPATIENT VISIT, EST OFFICE/OUTPATIENT VISIT, EST OFFICE/OUTPATIENT VISIT, EST OFFICE/OUTPATIENT VISIT, EST PREV VISIT, NEW, AGE 18-39 Advance Directives Directive Yes / No Effective Date File Name No Information Encounters Encounter Description Practice Location Reason(s) For Visit Diagnoses Date Provider Providers Copied on Encounter OFFICE/OUTPA TIENT VISIT, EST [facility], [address] [place] [address], [id number], [place] tel:[phone] [facility] hip pain (chief complaint) toothache (chief complaint) HTN (chief complaint) Pain in joint, site unspecifiedAttentio n deficit disorder of childhood without mention of hyperactivityDietar y surveillance and counselingHypertens ion, UnspecifiedAtypical face pain Sep-2 0 3 Greg Ledesma. [address], [place], [place], [id number] , [place]. [phone] Referring Provider: Baltazar Garza, [address], [place], [place], [id number]. tel:[phone] OFFICE/OUTPA TIENT VISIT, [facility], [address], [place], [place], [id number], [place] tel:[phone] [facility] Hip pain (chief complaint) ADD (chief complaint) HTN (chief complaint) Dietary surveillance and counselingPain in joint, site unspecifiedHyperten guadalupe, UnspecifiedAttentio n deficit disorder of childhood without mention of hyperactivity 3 Greg Ledesma. [address], [place], [place], [id number] , [place]. [phone] Referring Provider: Kendall [address], [place], [place], [id number]. tel:[phone] OFFICE/OUTPA TIENT VISIT, [facility], [address], [place], [place], [id number], [place] tel:[phone] [facility] hip pain (chief complaint) ADD (chief complaint) HTN (chief complaint) Dietary surveillance and counselingDietary surveillance and counselingPain in joint, site unspecifiedAttentio n deficit disorder of childhood without mention of hyperactivityHypert ension, Unspecified 3 Greg Ledesma. [address], [address], [place], [place], [id number] , [place]. [phone] Referring Provider: Kend[address], [place], [place], [id number]. tel:[phone] OFFICE/OUTPA TIENT VISIT, [facility], [address], [place], [place], [id number], [place] tel:[phone] [facility] hip pain (chief complaint) ADD (chief complaint) Dietary surveillance and counselingPain in joint, site unspecifiedAttentio n deficit disorder of childhood without mention of hyperactivityHypert ension, Unspecified 3 Greg Ledesma. [address], [place], [place], [id number] , [place]. tel:[phone] Referring Provider: Knedall [address], [place], [place], [id number]. tel:[phone] PREV VISIT, NEW, AGE 18-39 [facility], [address], [place], [place], [id number], [place] tel:[phone] [facility] Physical (chief complaint) ADD (chief complaint) Dietary surveillance and counselingRoutine Medical ExamRoutine Medical Exam 3 Greg Ledesma. [address], [place], [place], [id number] , [place]. tel:[phone] Referring Provider: Kend[address] [facility] [place], [id number]. tel:[phone] Family History Family Member Type Diagnosis Age [...] No Information Instructions Date Instruction Additional Infor pramod Dietary counseling Related to Di etary surveillance [...] Mental Status Date Cognitive Assessment Orientation - [place] ed to time, place, person, situation.
--- OUTSIDE RECORDS SUMMARY | 2024-07-28 18:01 | XMS_ITS | Clinical Summary ---
Author Organization [facility] Address [address] [place] [address] Phone Care Team Providers Care Redrying Machine Operator Name Role Phone Unavailable Primary Care Provider [...] Cervical Cancer Screening (CCS) 2015 HPV/Cotest 2015 Influenza Immunization (#1) 2023 SARS-COV-2 Immunization ( season) 2023 10/10/2020, 09/19/2020 Respiratory Syncytial Virus (RSV) Immunization (Adult) (1 - 1-dose 75+ series) 02/10/2060 DTaP/Tdap/Td Immunization Discontinued 07/02/2017 TdaP Immunization Completed 07/02/2017 Meningococcal Immunization (ACWY) Aged Out No longer eligible based on patient's age to complete this topic Pneumococcal Immunization Combined Aged Out No longer eligible based on patient's age to complete this topic Rotavirus Immunization Aged Out No lo nger eligible based on patient's age to complete this topic
--- OUTSIDE RECORDS SUMMARY | 2024-07-28 18:01 | XMS_ITS | Continuity of Care Document ---
Author Organization [facility] Address [address] [place] [address] Phone Care Team Providers Care Inpatient Coder Name Role Phone Baltazar Garza MD Unavailable [...] Copied on Encounter OFFICE/OUTPA TIENT VISIT, EST [facility], [address] [place] [address], [id number], [place] tel:[phone] [facility] hip pain (chief complaint) toothache (chief complaint) HTN (chief complaint) Pain in joint, site unspecifiedAttentio n deficit disorder of childhood without mention of hyperactivityDietar y surveillance and counselingHypertens ion, UnspecifiedAtypical face pain Sep-2 0 3 Greg Ledesma. [address], [place], [place], [id number] , [place]. [phone] Referring Provider: Baltazar Garza, [address], [place], [place], [id number]. tel:[phone] OFFICE/OUTPA TIENT VISIT, [facility], [address], [place], [place], [id number], [place] tel:[phone] [facility] Hip pain (chief complaint) ADD (chief complaint) HTN (chief complaint) Dietary surveillance and counselingPain in joint, site unspecifiedHyperten guadalupe, UnspecifiedAttentio n deficit disorder of childhood without mention of hyperactivity 3 Greg Ledesma. [address], [place], [place], [id number] , [place]. [phone] Referring Provider: Kend[address], [place], [place], [id number]. tel:[phone] OFFICE/OUTPA TIENT VISIT, [facility], [address], [place], [place], [id number], [place] tel:[phone] [facility] hip pain (chief complaint) ADD (chief complaint) HTN (chief complaint) Dietary surveillance and counselingDietary surveillance and counselingPain in joint, site unspecifiedAttentio n deficit disorder of childhood without mention of hyperactivityHypert ension, Unspecified 3 Greg Ledesma. [address], [place], [place], [id number] , [place]. [phone] Referring Provider: Kend[address], [place], [place], [id number]. tel:[phone] OFFICE/OUTPA TIENT VISIT, [facility], [address], [place], [place], [id number], [place] tel:[phone] [facility] hip pain (chief complaint) ADD (chief complaint) Dietary surveillance and counselingPain in joint, site unspecifiedAttentio n deficit disorder of childhood without mention of hyperactivityHypert ension, Unspecified 3 Greg Ledesma. [address], [place], [place], [id number] , [place]. tel:[phone] Referring Provider: Kend[address], [place], [place], [id number]. tel:[phone] PREV VISIT, NEW, AGE 18-39 [facility], [address], [place], [place], [id number], [place] tel:[phone] [facility] Physical (chief complaint) ADD (chief complaint) Dietary surveillance and counselingRoutine Medical ExamRoutine Medical Exam 3 Greg Ledesma. [address], [place], [place], [id number] , [place]. tel:[phone] Referring Provider: Kend[address] [facility] [place], [id number]. tel:[phone] Family History Family Member Type Diagnosis Age At Onset Mother Problem (finding) Hypertension Father Problem (finding) Diabetes mellitus Brother Problem (finding) Alive and well Payers Payer name Insurance type Covered constitution party ID Authoriza tion(s) No Information Social [...] Information Instructions Date Instruction Additional Infor pramod Decrease caloric intake Related to Dietary surveillance [...] Mental Status Date Cognitive Assessment Orientation - [place] ed to time, place, person, situation.
[2024-07-28 18:05] VITALS: BP 140/82; PULSE 67; RESP 18; TEMP 36.3; O2SAT 100
--- NOTE | 2024-07-28 18:13 | ED_ITS ---
HPI - Eye Problem General Chief complaint: Eye Problems Stated complaint: poked in eye Time Seen by Provider: 07/28/24 18:06 Source: patient Mode of arrival: ambulatory Limitations: no limitations History of Present Illness HPI Narrative: Marcie is a 39-year-old female patient presenting to the clinic today with complaints right eye pain. States she opened up a umbrella and accidentally poked herself in the eye earlier today around noon. States her eye has been watering and she has been having pain. Right eye was 20 70 and left eye was 20 40 on visual acuity Related Data Allergies Allergy/AdvReac Type Severity Reaction Status Date / Time No Known Allergies Allergy Verified 07/28/24 17:58 Review of Systems Review of Systems: Pertinent positives per HPI. Patient denies any fever, chills, rash, headache, visual changes, dizziness, cough, shortness of breath, chest pain, palpitations, nausea, vomiting, diarrhea, constipation, abdominal pain, or any urinary issues. PMFSH Past Medical History Medical History Allergies Urine incontinence Sciatica Asthma Obese Sleep apnea Hx of migraines HTN (hypertension) Anxiety Depression Surgical History Surgical History H/O tubal ligation History of tonsillectomy History of bilateral hip arthroplasty Family History Family History Father Diabetes mellitus Hypertension Cerebrovascular accident Mother Asthma Diabetes mellitus Hypertension Depression Heart disease Other Family history of malignant neoplasm Social History Social History Social History: 05/08/24 very confident with medical forms Smoking packs per day: 0.5 Smoking cigarettes per day: 10.0 Smoking status: Former smoker Alcohol intake: current Substance use: never Do You Feel Safe in your Home?: Yes Lack of Transportation: No Lack of Food: Never True Current Housing: I Have Housing Concerned About Future Housing: No Difficulty Paying Gas/Electric Bills: No Difficulty Paying for Meds: YES Currently Unemployed: No Education: High School Diploma/GED Difficulty w/ Childcare or Family Care: No Gender identity (if verbalized by the patient): Female Comments At the time of my signature, I reviewed and agree with the nursing past medical, surgical, social, and family history. There is no relevant family history pertinent to the patient complaint. Exam Narrative: General: Well-developed, morbidly obese, in no apparent distress Head: Normocephalic, atraumatic Eyes: Pupils equally round and reactive to light bilaterally, EOM intact, sclera and conjunctive clear, right eye watery, left eye no discharge, lids normal Ears: TMs intact and clear, ear canals clear, no drainage, grossly hearing normal. Nose: Nares patent, no discharge, no inflammation, no sinus tenderness. Mouth: Oral pharynx without lesions or masses, good dentition, MMM. Neck: Supple, trachea midline, no enlargement of anterior or posterior cervical nodes, no thyroid masses or goiter palpable. Cardio: Regular rate and rhythm, s1 and s2 normal, no murmur appreciated. Resp: Clear to auscultation bilaterally, no rhonchi, rales, wheezing or rubs Course Course Emergency Course: Portions of this record may have been created with voice recognition software. Level of Care: Express Care Visit Vital Signs Vital signs: Vital Signs Temperature 36.3 C L 07/28/24 18:05 Pulse Rate 67 07/28/24 18:05 Respiratory Rate 18 07/28/24 18:05 Blood Pressure 140/82 07/28/24 18:05 Pulse Oximetry 100 07/28/24 18:05 Oxygen Delivery Room Air 07/28/24 18:05 Temperature 36.3 C L 07/28/24 18:05 Pulse Rate 67 07/28/24 18:05 Respiratory Rate 18 07/28/24 18:05 Blood Pressure 140/82 07/28/24 18:05 Pulse Oximetry 100 07/28/24 18:05 Oxygen Delivery Room Air 07/28/24 18:05 Vital signs reviewed Procedures Other Procedure Procedure 1: Other Procedure: Two drops of topical tetracaine anesthetic was instilled with good anesthesia. Fluorescein stain of the right eye was performed. Epithelial defect was noted to the inner right mid eye along the sclera outside the visual field. NO FB, ulcer or dendritic lesions. Upper lid was everted and no FB or lesions were noted. NO Nehemias sign. Normal saline irrigation eye solution was performed and the patient tolerated the procedure well, no adverse reaction or complications. Visual acuity noted. MDM - Eye Problem MDM Narrative Medical decision making narrative: At the time of visit patient is resting comfortably on the exam table. Patient appears to be nontoxic. Procedures: Wood's lamp exam was performed and there was a corneal abrasion outside the visual field on the inner sclera of the right eye. No Nehemias sign. Plan: I suspect patient has a corneal abrasion outside the visual field on the inner sclera. Prescription for tobramycin was sent to the pharmacy. Supportive measures were discussed with the patient and they voiced understanding discharge instructions and agrees to treatment plan. Return precautions reviewed Differential Diagnosis Differential diagnosis: Likely corneal abrasion, conjunctivitis, acute iritis, hyphema, periorbital cellulitis, subconjunctival hemorrhage, glaucoma, corneal ulcer and ruptured globe Discharge Plan Discharge Clinical Impression: Corneal abrasion Qualifiers: Encounter type: initial encounter Laterality: right Qualified Code(s): S05.01XA - Injury of conjunctiva and corneal abrasion without foreign body, right eye, initial encounter Patient Disposition: Home, Self-Care Condition: Stable Instructions: Antibiotic Form, Corneal Abrasion (ED) Additional Instructions: Corneal abrasion noted outside the visual field. Practice good hand washing techniques Avoid touching eyes Instill eyedrops as prescribed-tobramycin May use warm moist washcloth to help remove eye discharge If eyes are matted shut-do not pry eyes open-use a warm moist cloth to loosen matting and wipe matter away from eye May take Tylenol/Motrin as needed for pain or fever May take Benadryl as needed for itching Follow-up with your PCP in 3-5 days if symptoms persist or sooner if they worsen Go to the emergency room if you develop any fever that is not controlled by Tylenol or Motrin, loss of vision, eye pain, increase eye swelling,visual changes, headache, confusion, lethargy, weakness, chest pain, or shortness of breath. Patient Language: Turkish Prescriptions: New tobramycin 0.3 % drops 1 drp RIGHT EYE Q4H 7 Days Qty: 5 0RF No Action escitalopram oxalate 20 mg tablet 20 mg PO DAILY Qty: 90 1RF buspirone 5 mg tablet 5 mg PO BID Qty: 180 1RF lisinopril 20 mg tablet 20 mg PO DAILY Qty: 90 1RF acetaminophen 500 mg tablet 1,000 mg PO TID PRN (Reason: catherine) 7 Days Qty: 42 0RF albuterol sulfate 2.5 mg /3 mL (0.083 %) solution for nebulization 2.5 mg inhalation Q6H PRN (Reason: bronchospasm) Qty: 90 1RF methocarbamol 750 mg tablet 750 mg PO TID Qty: 90 0RF Airsupra 90-80 mcg/actuation HFA aerosol inhaler 2 inh inhalation ONCE Qty: 32.1 0RF Rx Instructions: as a single dose; may repeat up to 6 doses per day (12 inhalations) cetirizine 10 mg tablet 10 mg PO DAILY Qty: 90 1RF Follow-up/Referrals: Cheyenne Smith APRN [Primary Care Provider] - Time of Disposition: 18:10 Quality NIHSS Nursing Documentation ED NIHSS nursing documentation: reviewed/agree
== END 2024-07-28 18:13 | disposition home or self-care (01) ==
PROVIDERS: Emergency Provider Nurse Practitioner Family; PCP Nurse Practitioner Family
DX: S05.01XA Injury of conjunctiva and corneal abrasion without foreign body, right eye, initial encounter (principal); W22.8XXA Striking against or struck by other objects, initial encounter; Z87.891 Personal history of nicotine dependence; J45.909 Unspecified asthma, uncomplicated; I10 Essential (primary) hypertension; E66.9 Obesity, unspecified; Z68.43 Body mass index [BMI] 50.0-59.9, adult; F41.9 Anxiety disorder, unspecified; F32.A Depression, unspecified; Z96.653 Presence of artificial knee joint, bilateral
CPT/HCPCS: 99213; A9270; G0463